=== PATIENT | female | born 1945 | race Caucasian/White ===

== ENCOUNTER 2018-05-01 09:04 | Day surgery (SDC) | payer MEDICARE, BC, SELFPAY ==
--- NOTE | 2018-05-01 | PATH_ITS ---
[facility] Accession Number: [id number] . 01 Material submitted: . COLON POLYP AT 70CM . 02 Diagnosis: Biopsy, Colon Polyp At 70 CM: Tubular adenoma. [facility]/05/03/2018 . 02 Electronically signed: . Benjamin Garcia MD, Pathologist NPI- [id number] . 01 Gross description: . COLON POLYP AT 70CM: Received in formalin is 1 fragment(s) of [place]udd[place], soft tissue measuring 0.4 x 0.3 x 0.3 cm submitted entirely in 1 cassette(s) /TRC /TRC . 02 Pathologist provided ICD-10: D12.3 . 02 CPT . 880712 Performed at: 01 [facility] [address] [id number] MD Arjun Hoff MD Phone: [phone] Performed at: 02 [facility] [address] [place], [place] [id number] MD Js Davenport MD Phone: [phone]
[2018-05-01 09:44] VITALS: BP 154/82; PULSE 88; RESP 16; TEMP 36; O2SAT 98; BMI 34.7
[2018-05-01] MEDS: SODIUM CHLORIDE 0.9% 1,000 ML 42 ML IV (10:12)
--- NOTE | 2018-05-01 10:50 | PM.HP.1 ---
History of Present Illness Date Patient Seen: 05/01/18 Time Patient Seen: 10:51 Chief complaint: [id number] COLONOSCOPY W/BX Narrative: Need for screening colonoscopy Patient History Medical History Diabetes type 2, controlled (Acute) Hypercholesterolemia (Acute) Hypertension (Acute) Family & Social History Social History: household members spouse Tobacco & Substance use: Smoking Status Never smoker Meds Home Medications Medication Instructions Recorded Confirmed Type medroxyprogesterone 2.5 mg PO QDAY #30 05/13/12 05/01/18 Rx aspirin 81 mg tablet,delayed 81 mg PO DAILY 04/08/18 05/01/18 History release ipratropium bromide 0.03 % nasal 2 spray NASAL DAILY ml 04/08/18 05/01/18 History spray lisinopril 10 mg tablet 10 mg PO DAILY 04/08/18 05/01/18 History metformin ER 500 mg 500 mg PO DAILY 04/08/18 05/01/18 History tablet,extended release 24 hr pravastatin 10 mg tablet 10 mg PO BEDTIME 04/08/18 05/01/18 History Allergies Allergy/AdvReac Type Severity Reaction Status Date / Time codeine AdvReac Mild VOMITING Verified 05/01/18 09:40 Exam Vital Signs (past 8 hours): - Oropharynx free of lesion Chest clear to auscultation percussion Cardiac exam reveals no S3 or murmur 05/01/18 09:44 Temperature 96.8 F L Pulse Rate 88 Respiratory Rate 16 Blood Pressure 154/82 H Pulse Oximetry 98 Oxygen Delivery Method Room Air Assessment & Plan Plan: Assessment/Plan Narrative: Personal history of colon polyps need for follow-up colonoscopy.
--- NOTE | 2018-05-01 10:55 | SUR.OPER ---
to endo from opd via cart respirtions unlabored iv patent positioned per self for procedure
--- NOTE | 2018-05-01 11:17 | SUR.OPER ---
tolerated procedure well
--- NOTE | 2018-05-01 11:17 | PM.OP.ENDO ---
Operative Date/Time/Diagnoses Date of procedure: 05/01/18 Time of procedure: 11:17 Pre-op diagnosis: Personal history of colon polyps Post-op diagnosis: same Procedure & Clinicians Study performed: Colonoscopy Same procedure as scheduled: Yes Indications: Personal history of colon polyps Surgeon: Johny Hill Procedure Notes Procedure in detail: After informed consent was obtained the patient was placed in left lateral decubitus position. The video colonoscope was introduced to the rectum slowly advanced to the cecum. On slow withdrawal mucosa was carefully examined. Preparation was excellent. The scope was removed patient tolerated procedure well Blood loss none Complications none Sedation: Fentanyl 100 mcg, Versed 7 mg IV titration. Total sedation time 21 min Findings 1. 6 mm polyp at 70 cm. General biopsied and removed completely 2. Extensive sigmoid diverticulosis 3. Otherwise negative colonoscopy to cecum Patient will be contacted regarding biopsies but will certainly need follow-up colonoscopy in 5 years. Complications: none Recommendations: Colonscopy in 5 years
[2018-05-01 11:19] VITALS: BP 140/72; PULSE 97; RESP 16; TEMP 36.2; O2SAT 96
[2018-05-01] MEDS: MIDAZOLAM 5 MG/5 ML VIAL 7 MG IV (11:20)
[2018-05-01] MEDS: fentaNYL 250 MCG/5 ML INJ 100 MCG IV (11:20)
[2018-05-01 11:25] VITALS: BP 108/72; PULSE 98; RESP 20; O2SAT 96
[2018-05-01 11:37] VITALS: BP 116/73; PULSE 90; RESP 15; TEMP 36.8; O2SAT 97
[2018-05-01 14:31] VITALS: BP 94/60; PULSE 77; RESP 16; TEMP 36.1; O2SAT 97
== END 2018-05-01 12:10 | disposition home or self-care (01) ==
PROVIDERS: PCP Internal Medicine; Visit Provider Internal Medicine Gastroenterology
PROC: 0DJD8ZZ Inspection of Lower Intestinal Tract, Via Natural or Artificial Opening Endoscopic (ICD-10-PCS; CPT 45378; principal; 2018-05-01 10:30)
DX: Z86.010 Personal history of colon polyps (principal); K57.30 Diverticulosis of large intestine without perforation or abscess without bleeding; D12.3 Benign neoplasm of transverse colon
CPT/HCPCS: 45380; J2250; J3010

== ENCOUNTER → 2018-09-02 11:47 | Outpatient (CLI) | payer MEDICARE, BC, SELFPAY ==
[2018-09-02 13:47] LABS: Blood Urea Nitrogen 12 mg/dL (7-17); Calcium 9.7 mg/dL (8.4-10.2); Carbon Dioxide 32 mmol/L (22-32); Chloride 98 mmol/L (98-107); Estimated Glomerular Filt Rate > 60.0 mL/min (>60); Glucose 211 mg/dL (80-110); HEMOLYSIS < 15 (0-50); Potassium 4.5 mmol/L (3.4-5.1); Sodium 139 mmol/L (137-145)
[2018-09-02 14:16] LABS: Creatinine Urine Random 63.7 mg/dL
[2018-09-02 15:00] LABS: Microalbumi Creatinin Ratio Ur 9.4 ug/mg CR (<30); Microalbumin Urine Random < 0.6 mg/dL (0-1.6)
== END ==
PROVIDERS: PCP Internal Medicine; Visit Provider Internal Medicine
DX: E11.9 Type 2 diabetes mellitus without complications (principal); I10 Essential (primary) hypertension
CPT/HCPCS: 36415; 80048; 82043; 82570; 83036

== ENCOUNTER → 2018-09-17 11:29 | Outpatient (CLI) | payer MEDICARE, BC, SELFPAY ==
--- NOTE | 2018-09-17 | DI.MRI.S_ITS ---
PROCEDURE: MR LUMBAR SPINE WO CON INDICATIONS: SPINAL STENOSIS LUMBAR REGION TECHNIQUE: Noncontrast sagittal T1 spin echo and T2 fast echo, sagittal STIR, axial T1 and T2 fast spin echo through the lumbar spine. In cases with scoliosis, additional coronal T2 fast spin echo may be performed. COMPARISON: None. FINDINGS: Image quality: Excellent. Alignment and Curvature: No plain films are available for comparison, for numbering purposes. Thus, for the purposes of this examination, 5 lumbar type vertebral bodies will be presumed, as denoted on the montage panel. This should be confirmed and correlated with plain films, prior to any lumbar spinal intervention. There is loss of normal lumbar lordosis. There is mild, grade 1 anterolisthesis of L4 on L5. Bone Marrow: Marrow is of normal overall signal. No acute vertebral body compression fractures. There is mild reactive signal within the implant adjacent to the L3-4 and L4-L5 intervertebral discs. T12 hemangioma is present. L4 hemangioma is present. Spinal Cord: Conus medullaris terminates at the lower L1 level. Visualized cord demonstrates normal signal and size. Paraspinous Soft Tissues: No paravertebral masses. L1-L2: Normal appearance. L2-L3: Mild disc height loss and desiccation. Mild diffuse disc bulge. Mild bilateral facet and ligamentum flavum hypertrophy. Mild epidural lipomatosis. Moderate canal stenosis. No foraminal stenosis. L3-L4: Mild disc desiccation. Moderate bilateral facet and ligamentum flavum hypertrophy. Mild epidural lipomatosis. Moderate canal stenosis. Mild foraminal stenosis bilaterally. L4-L5: Moderate disc height loss and desiccation. Mild diffuse disc bulge with superimposed left posterolateral protrusion. Mild bilateral facet and ligamentum flavum hypertrophy. Moderate canal stenosis. Mild left greater than right foraminal stenosis. The left for lateral disc protrusion abuts the left L4 nerve root within the neural foramen, but does not appear to compress it. L5-S1: Mild bilateral facet hypertrophy. No significant canal stenosis. Mild bilateral foraminal stenosis. IMPRESSION: 1.5 lumbar type vertebral bodies were presumed for the current report. Plain films of the lumbar spine are recommended for confirmation, prior to any lumbar spinal intervention. 2. Multilevel degenerative disc and facet disease, as well as ligamentum flavum hypertrophy and epidural lipomatosis. 3. Multilevel canal stenoses, worst at L3-L4 and L4-L5, where there are moderate canal stenoses present. 4. Multilevel foraminal stenoses, worst on the left at L4-L5. Left far lateral disc protrusion abuts the left L4 nerve root within the neural foramen, but does not appear to compress it. Recommend correlation with clinical symptoms to ascertain relevance of this finding. Dictated by: Galo Stout M.D. on 09/17/2018 at 13:40 Approved by: Galo Stout M.D. on 09/17/2018 at 13:44
== END ==
PROVIDERS: PCP Internal Medicine; Visit Provider Internal Medicine
DX: M48.062 Spinal stenosis, lumbar region with neurogenic claudication (principal); M48.07 Spinal stenosis, lumbosacral region; M51.36 Other intervertebral disc degeneration, lumbar region; E88.2 Lipomatosis, not elsewhere classified
CPT/HCPCS: 72148

== ENCOUNTER → 2018-10-17 12:30 | Outpatient (CLI) | payer MEDICARE, BC, SELFPAY ==
--- NOTE | 2018-10-17 | DI.MG.S_ITS ---
BILATERAL DIGITAL SCREENING MAMMOGRAM 3D/2D WITH CAD: 10/17/2018 CLINICAL: Routine screening. Family history of breast cancer. Comparison is made to exams dated: 08/23/2017 mammogram, 08/21/2016 mammogram, and 08/20/2015 mammogram - [facility]. There are scattered fibroglandular elements in both breasts. Current study was also evaluated with a Computer Aided Detection (CAD) system. There are benign vascular calcifications in the left breast. There is a mole marker on the right breast. There are mole markers on the left breast. No significant masses, calcifications, or other findings are seen in either breast. There has been no significant interval change. IMPRESSION: There is no mammographic evidence of malignancy. A 1 year screening mammogram is recommended. This exam was interpreted at Station ID: [id number]. NOTE: For mammograms, a report in lay terms will be sent to the patient. Approximately 15% of breast malignancies will not be visualized mammographically. In the management of a palpable breast mass, a negative mammogram must not discourage biopsy of a clinically suspicious lesion. Electronically Signed By: Everett harrington/shefali:10/17/2018 21:34:56 letter sent: Normal Exam ACR BI-RADS Category 2: Benign Finding(s) 3342F
== END ==
PROVIDERS: PCP Internal Medicine; Visit Provider Internal Medicine
DX: Z12.31 Encounter for screening mammogram for malignant neoplasm of breast (principal); Z80.3 Family history of malignant neoplasm of breast
CPT/HCPCS: 77063; 77067

== ENCOUNTER 2019-03-15 06:10 | Emergency (ER) | payer MEDICARE, BC, SELFPAY ==
[2019-03-15] VITALS (7 sets, daily range): BP systolic 139–177; BP diastolic 58–72; PULSE 74–89; RESP 17–23; TEMP 36.6; O2SAT 95–100; BMI 34.7
--- NOTE | 2019-03-15 06:16 | DI.RAD.S_ITS ---
PROCEDURE: XR CHEST 1V INDICATIONS: Chest tightness TECHNIQUE: One view of the chest was acquired. COMPARISON: None. FINDINGS: Surgical changes and devices: None. Lungs and pleura: Lungs are clear. No pleural effusions or pneumothorax. Mediastinum: Mediastinal contours appear normal. Heart size is normal. Bones and chest wall: No suspicious bony lesions. Overlying soft tissues appear unremarkable. IMPRESSION: Negative chest. No acute cardiopulmonary process is suspected. Note: The preliminary ED findings and the final radiology report are concordant. Dictated by: Quinton Pearce M.D. on 03/15/2019 at 7:09 Approved by: Quinton Pearce M.D. on 03/15/2019 at 7:09
[2019-03-15] MEDS: MAG HYDROX/ALUMINUM/SIMETH SUS 20 ML, LIDOCAINE VISCOUS 2% 15 ML PO (06:31)
--- NOTE | 2019-03-15 06:37 | ED_ITS ---
HPI - Chest Pain General Chief Complaint: Chest Pain Stated Complaint: CHEST TIGHTNESS SINCE 4AM Time Seen by Provider: 03/15/19 06:16 Source: patient Mode of arrival: ambulatory Limitations: no limitations History of Present Illness HPI narrative: Patient is a 73-year-old female. She is a [id number] diabetic. She states that last evening she when out to eat and ate something he does at a facility where she has never had this food in the past. She states that afterwards she did not feel very well but there were no specific symptoms. She states that at 0300 hours this morning she woke up to go to the bathroom and noticed that she was having left-sided/retrosternal chest discomfort. She describes it as a pressure. She states that it worsened at approximately 0400 hours in the morning when she took some Tums. She states that since then things seemed to be improving somewhat however she has not symptom-free. No change in the symptoms with breathing. Potentially a little bit worse with palpation. Not worse with moving of extremities. No prior heart issues. No lung issues. Related Data Home Medications Medication Instructions Recorded Confirmed aspirin 81 mg tablet,delayed 81 mg PO DAILY 04/08/18 05/01/18 release ipratropium bromide 0.03 % nasal 2 spray NASAL DAILY ml 04/08/18 05/01/18 spray lisinopril 10 mg tablet 10 mg PO DAILY 04/08/18 05/01/18 metformin ER 500 mg 500 mg PO DAILY 04/08/18 05/01/18 tablet,extended release 24 hr pravastatin 10 mg tablet 10 mg PO BEDTIME 04/08/18 05/01/18 Previous Rx's Medication Instructions Recorded medroxyprogesterone 2.5 mg PO QDAY #30 05/13/12 Allergies Allergy/AdvReac Type Severity Reaction Status Date / Time codeine AdvReac Mild VOMITING Verified 05/01/18 09:40 Review of Systems Constitutional Denies fever(s) and Denies headache(s) ENT Ears, Nose, Mouth, and Throat: Denies vertigo and Denies headache(s) Cardiovascular Reports chest pain and Denies dyspnea Respiratory Denies dyspnea Gastrointestinal Gastrointestinal: Denies abdominal pain, Denies change in stool character and Denies vomiting Musculoskeletal Denies myalgias and Denies arthralgias Integumentary/Breasts Denies rash Neurologic Denies vertigo and Denies headache(s) Hematologic/Lymphatic Denies easy bleeding and Denies easy bruising [facility] Medical History Diabetes type 2, controlled (Acute) Hypercholesterolemia (Acute) Hypertension (Acute) Social History household members: spouse Smoking Status: Never smoker Social History household members: spouse Smoking Status: Never smoker Exam Initial Vital Signs Initial Vital Signs: Vital Signs Temperature 97.8 F 03/15/19 06:19 Pulse Rate 89 03/15/19 06:19 Respiratory Rate 23 03/15/19 06:19 Blood Pressure 177/71 H 03/15/19 06:19 Pulse Oximetry 96 03/15/19 06:19 Const General: cooperative, comfortable, well developed, well groomed and No acute distress Orientation: alert, awake and oriented x3 HENMT Head: normal to inspection and normocephalic Resp Effort & Inspection: normal respiratory effort Auscultation: clear to auscultation bilaterally Cardio Rate: regular rate Rhythm: regular rhythm Heart Sounds: murmur systolic III/ Pulses: radial pulses present GI Inspection: non-distended Palpation: soft and No firm Skin Lesions: no lesions Rashes: no rashes Neuro General: alert and awake Cognition: normal cognition Speech: speech normal Gait: normal gait Motor: muscle tone normal throughout Extrem General: normal to inspection and capillary refill normal Course Orders Ordered: ED Orders 03/15/19 06:16 XR chest 1V Stat EKG-12 Lead Stat 03/15/19 06:45 Complete Blood Count AUTO DIFF Stat Comprehensive Metabolic Panel Stat Lipase Stat Troponin I Stat 03/15/19 09:00 Troponin I Stat Discontinued Medications Al Hydrox/Mg Hydrox/Simethicone 20 ml/ Lidocaine HCl 15 ml 0 ml PO NOW ONE Stop: 03/15/19 06:19 Last Admin: 03/15/19 06:31 Dose: 35 ml Vital Signs - 8 hr 03/15/19 06:19 Temperature 97.8 F Pulse Rate 89 Respiratory Rate 23 Blood Pressure 177/71 H Pulse Oximetry 96 MDM - Chest Pain Lab Data Attestation: I reviewed the patient's lab results. Result diagrams: 03/15/19 06:45 03/15/19 06:45 Lab Results 03/15/19 03/15/19 03/15/19 Range/Units 06:45 06:45 06:45 WBC 9.7 (4.5-11.0) X10^3/uL RBC 4.72 (4.0-5.2) X10^6/uL Hgb 13.8 (12.0-16.0) g/dL Hct 40.6 (36-46) % MCV 86.0 (80-100) fL MCH 29.2 (26-34) PG MCHC 34.0 (30-36) % RDW 14.0 (11.6-14.8) % Plt Count 219 (150-400) X10^3/uL Neut % (Auto) 69.2 (50-75) % Lymph % (Auto) 22.5 L (25-40) % [place] % (Auto) 5.9 (3-14) % Eos % (Auto) 1.6 L (2-4) % Baso % (Auto) 0.8 (0-2) % Neut # (Auto) 6700 (5137-1492) /uL Lymph # (Auto) 2200 (3253-8252) /uL [place] # (Auto) 600 (0-900) /uL Eos # (Auto) 200 (0-450) /uL Baso # (Auto) 100 (0-100) /uL Sodium 142 (137-145) mmol/L Potassium 3.9 (3.4-5.1) mmol/L Chloride 102 (98-107) mmol/L Carbon Dioxide 32 (22-32) mmol/L BUN 13 (7-17) mg/dL Creatinine 0.60 (0.52-1.04) mg/dL Estimated GFR > 60.0 (>60) mL/min BUN/Creatinine Ratio 21.7 (6-22) Glucose 161 H (80-110) mg/dL Calcium 10.1 (8.4-10.2) mg/dL Total Bilirubin 0.4 (0.2-1.3) mg/dL AST 17 (14-36) IU/L ALT 15 (9-52) IU/L Alkaline Phosphatase 84 (38-126) U/L Troponin I < 0.012 (0.01-0.034) ng/mL Total Protein 7.4 (6.3-8.2) g/dL Albumin 4.1 (3.5-5.0) g/dL Globulin 3.3 (1.7-4.1) g/dL Albumin/Globulin Ratio 1.2 (1.0-2.8) Lipase 217 (23-300) U/L Imaging Data Chest x-ray: Attestation: I personally reviewed and interpreted this imaging study as follows: My impression: Normal size heart No focal consolidations No pneumothorax ECG Data Attestation: I personally reviewed and interpreted this ECG as follows: Prior ECG tracings: not available for review Interpretation: Sinus rhythm Ventricular rate is 67 Normal QRS Normal axis [address] depression V4 otherwise nonspecific ST T wave changes MDM Narrative Medical decision making narrative: Patient with consistent symptoms since 0300 hours this morning. She states that they have been improving somewhat after taking Tums but not completely gone. Patient has nonspecific ST changes in the EKG. Chest x-ray is unremarkable. Care was turned over to day provider at change of shift to follow up on labs and ultimate disposition. Discharge Plan Departure Prescriptions: No Action medroxyprogesterone 2.5 MG tablet 2.5 mg PO QDAY Qty: 30 RF: 11 ipratropium bromide 0.03 % spray,non-aerosol 2 spray NASAL DAILY RF: 0 lisinopril 10 mg tablet 10 mg PO DAILY RF: 0 pravastatin 10 mg tablet 10 mg PO BEDTIME RF: 0 aspirin 81 mg tablet,delayed release (DR/EC) 81 mg PO DAILY RF: 0 metformin 500 mg tablet extended release 24 hr 500 mg PO DAILY RF: 0
--- NOTE | 2019-03-15 06:50 | PC.NURSE ---
pt reports maybe a zero out of 10 for chest pain/pressure after GI cocktail
[2019-03-15 06:51] LABS: Add Manual Diff / Slide Review NO; Basophils Absolute Auto 100 /uL (0-100); Basophils Percent Auto 0.8 % (0-2); Eosinophils Absolute Auto 200 /uL (0-450); Eosinophils Percent Auto 1.6 % (2-4); Hematocrit 40.6 % (36-46); Hemoglobin 13.8 g/dL (12.0-16.0); Lymphocytes Absolute Auto 2200 /uL (1100-4500); Lymphocytes Percent Auto 22.5 % (25-40); Mean Corpuscular Hemoglobin 29.2 PG (26-34); Monocytes Absolute Auto 600 /uL (0-900); Monocytes Percent Auto 5.9 % (3-14); Neutrophils Absolute Auto 6700 /uL (1500-7000); Neutrophils Percent Auto 69.2 % (50-75); Platelet Count 219 X10^3/uL (150-400); Red Blood Cell Count 4.72 X10^6/uL (4.0-5.2); White Blood Cell Count 9.7 X10^3/uL (4.5-11.0)
[2019-03-15 07:02] LABS: Alanine Aminotransferase 15 IU/L (9-52); Albumin 4.1 g/dL (3.5-5.0); Albumin Globulin Ratio 1.2 (1.0-2.8); Alkaline Phosphatase 84 U/L (38-126); Aspartate Aminotransferase 17 IU/L (14-36); BUN Creatinine Ratio 21.7 (6-22); Bilirubin Total 0.4 mg/dL (0.2-1.3); Blood Urea Nitrogen 13 mg/dL (7-17); Calcium 10.1 mg/dL (8.4-10.2); Carbon Dioxide 32 mmol/L (22-32); Chloride 102 mmol/L (98-107); Estimated Glomerular Filt Rate > 60.0 mL/min (>60); Globulin 3.3 g/dL (1.7-4.1); Glucose 161 mg/dL (80-110); HEMOLYSIS < 15 (0-50); Lipase 217 U/L (23-300); Potassium 3.9 mmol/L (3.4-5.1); Sodium 142 mmol/L (137-145); Total Protein 7.4 g/dL (6.3-8.2)
[2019-03-15 07:13] LABS: Troponin I < 0.012 ng/mL (0.01-0.034)
[2019-03-15 09:45] LABS: Troponin I < 0.012 ng/mL (0.01-0.034)
== END 2019-03-15 10:12 | disposition home or self-care (01) ==
PROVIDERS: Emergency Medicine; Emergency Provider Emergency Medicine; PCP Internal Medicine
DX: R07.89 Other chest pain (principal)
CPT/HCPCS: 36415; 36591; 71045; 80053; 83690; 84484; 85025; 93005; 99283; 99285

== ENCOUNTER → 2019-10-30 14:44 | Outpatient (CLI) | payer MEDICARE, BC, SELFPAY ==
--- NOTE | 2019-10-30 | DI.MG.S_ITS ---
BILATERAL DIGITAL SCREENING MAMMOGRAM 3D/2D WITH CAD: 10/30/2019 CLINICAL: Routine screening. Family history of breast cancer. Comparison is made to exams dated: 10/17/2018 mammogram, 08/23/2017 mammogram, 08/21/2016 mammogram, 08/20/2015 mammogram, and 08/12/2014 mammogram - [facility]. There are scattered fibroglandular elements in both breasts. Current study was also evaluated with a Computer Aided Detection (CAD) system. There are benign vascular calcifications in the left breast. There is a mole marker on the left breast. No significant masses, calcifications, or other findings are seen in either breast. There has been no significant interval change. IMPRESSION: There is no mammographic evidence of malignancy. A 1 year screening mammogram is recommended. This exam was interpreted at Station ID: [id number]. NOTE: For mammograms, a report in lay terms will be sent to the patient. Approximately 15% of breast malignancies will not be visualized mammographically. In the management of a palpable breast mass, a negative mammogram must not discourage biopsy of a clinically suspicious lesion. Electronically Signed By: Everett harrington/shefali:10/30/2019 17:23:22 letter sent: Normal Exam ACR BI-RADS Category 2: Benign Finding(s) 3342F
== END ==
PROVIDERS: PCP Internal Medicine; Visit Provider Internal Medicine
DX: Z12.31 Encounter for screening mammogram for malignant neoplasm of breast (principal); Z80.3 Family history of malignant neoplasm of breast
CPT/HCPCS: 77063; 77067

== ENCOUNTER 2019-11-25 20:44 | Emergency (ER) | payer MEDICARE, BC, SELFPAY ==
[2019-11-25 20:48] VITALS: BP 171/78; PULSE 89; RESP 18; TEMP 36.4; O2SAT 99
--- NOTE | 2019-11-26 02:35 | ED_ITS ---
HPI - Skin/Abscess/Foreign Bdy General Chief complaint: Skin/Abscess/Foreign Body Stated complaint: Cut Fingers on Right Hand Time Seen by Provider: 11/25/19 20:57 Source: patient Mode of arrival: Ambulatory Limitations: no limitations History of Present Illness HPI narrative: 74F nonsmoker with history of HTN and DM persents with the chief complaint of an accidental laceration to the tip of her Right middle finger. She's had some trouble getting the bleeding to stop over the past few hours hence her decision to come CS. She does not take any blood thinners and states her tetanus was updated 1 month ago. She has full range of motion and minimal pain. She lacerated it with a brand-new chaim CL[place] complaint: laceration Onset (ago): hour(s) Tetanus up to date: yes Location: R hand Severity: mild Quality: burning Pain Consistency: constant Context: other Treatments prior to arrival: bandages Related Data Home Medications Medication Instructions Recorded Confirmed aspirin 81 mg tablet,delayed 81 mg PO DAILY 04/08/18 05/01/18 release ipratropium bromide 0.03 % nasal 2 spray NASAL DAILY ml 04/08/18 05/01/18 spray lisinopril 10 mg tablet 10 mg PO DAILY 04/08/18 05/01/18 metformin 500 mg tablet,extended 500 mg PO DAILY 04/08/18 05/01/18 release 24 hr pravastatin 10 mg tablet 10 mg PO BEDTIME 04/08/18 05/01/18 Previous Rx's Medication Instructions Recorded medroxyprogesterone 2.5 mg PO QDAY #30 05/13/12 Allergies Allergy/AdvReac Type Severity Reaction Status Date / Time codeine AdvReac Mild VOMITING Verified 05/01/18 09:40 Review of Systems Constitutional Constitutional: Denies chills, Denies fatigue, Denies fever(s), Denies frequent falls, Denies lethargy and Denies weakness Eyes Eyes: Denies change in vision, Denies eye discharge, Denies irritation and Denies loss of vision ENT Ears, Nose, Mouth, and Throat: Denies change in voice, Denies dizziness, Denies neck pain, Denies sore throat and Denies throat swelling Cardiovascular Cardiovascular: Denies chest pain, Denies irregular heart rhythm, Denies lightheadedness, Denies palpitations, Denies dyspnea, Denies dyspnea on exertion and Denies orthopnea Respiratory Respiratory: Denies cough, Denies dyspnea, Denies dyspnea on exertion and Denies wheezing Gastrointestinal Gastrointestinal: Denies abdominal pain, Denies change in bowel habits, Denies diarrhea, Denies nausea and Denies vomiting Genitourinary Genitourinary: Denies hematuria, Denies flank pain, Denies urinary incontinence and Denies urinary urgency Musculoskeletal Musculoskeletal: Denies back pain, Denies muscle weakness, Denies neck pain, Denies numbness and Denies tingling Integumentary/Breasts Skin/Breast: Denies pruritus, Denies erythema, Denies rash and Reports wounds Neurologic Neurologic: Denies behavioral changes, Denies confusion, Denies dizziness, Denies frequent falls, Denies loss of vision, Denies numbness, Denies tingling and Denies weakness Psychiatric Psychiatric: Denies anxiety, Denies behavioral changes, Denies confusion, Denies depression, Denies homicidal ideation and Denies suicidal ideation Endocrine Endocrine: Denies fatigue, Denies flushing and Denies palpitations Hematologic/Lymphatic Hematologic/Lymphatic: Denies easy bruising Allergic/Immunologic Allergic/Immunologic: Denies urticaria, Denies throat swelling and Denies wheezing Patient History Medical History Diabetes type 2, controlled (Acute) Hypercholesterolemia (Acute) Hypertension (Acute) Social History household members: spouse Smoking Status: Never smoker Smoking Status: Never smoker alcohol intake frequency: 0-2 drinks per day Substance Use Type: does not use Exam Narrative Exam Narrative: GEN: AOx3 and in mild distress EYES: Pupils are equal, round, and reactive to light and accommodation. Extraoccular muscles are intact bilaterally. There is no subconjunctival hemorrhage or exudate. CHEST: Lungs are clear to auscultation bilaterally and free of wheezes, rales, or rhonchi. Heart rate is regular rhythm, there are no murmurs, clicks, rubs, or gallops. There is no chest wall tenderness. ABD: Abdomen is soft and nontender. There is no guarding or rebound. Bowel soun ds are normal in all 4 quadrants. There is no mass or organomegaly. EXT: Full painless ROM of all extremities with no loss of sensation or strength. SKIN: 0.5cm x 0.25cm avulsion laceration to pad of R index finger, no active bleeding. No ability to suture. Warm, pink, and dry. No erythema or rash Initial Vital Signs Initial Vital Signs: Vital Signs Temperature 97.6 F 11/25/19 20:48 Pulse Rate 89 11/25/19 20:48 Respiratory Rate 18 11/25/19 20:48 Blood Pressure 171/78 H 11/25/19 20:48 Pulse Oximetry 99 11/25/19 20:48 Course Vital Signs Vital signs: Vital Signs - 8 hr 11/25/19 20:48 Temperature 97.6 F Pulse Rate 89 Respiratory Rate 18 Blood Pressure 171/78 H Pulse Oximetry 99 MDM - Skin/Abscess/Foreign Bdy MDM Narrative Medical decision making narrative: laceration dressed by nursing with hemostatic gauze. Patient encouraged to follow up for wound care. No need for sutures, or antibiotics at this point in time. Patient given return precautions and is aware of and in agreement with discharge plan Discharge Plan Departure Patient Disposition: Home Clinical Impression: Laceration of finger of right hand Qualifiers: Encounter type: initial encounter Finger: middle finger Damage to nail status: without damage Foreign body presence: without foreign body Qualified Code(s): S61.212A - Laceration without foreign body of right middle finger without damage to nail, initial encounter Discharge Date/Time: 11/25/19 21:23 Instructions: DI for Minor Laceration Activity Restrictions/Additional Instructions: *You have been diagnosed with [avulsion laceration] *What to do: *Follow up with your primary care provider in 2-3 days, call for an appointment. Let them know you were seen in the Emergency Department and that we ask that you be seen in follow up *Return to ER if you should have any new, worsening or concerning symptoms, such as [increased bleeding, signs of infection such as redness, swelling or drainage] Prescriptions: No Action medroxyprogesterone 2.5 MG tablet 2.5 mg PO QDAY Qty: 30 RF: 11 ipratropium bromide 0.03 % spray,non-aerosol 2 spray NASAL DAILY RF: 0 lisinopril 10 mg tablet 10 mg PO DAILY RF: 0 pravastatin 10 mg tablet 10 mg PO BEDTIME RF: 0 aspirin 81 mg tablet,delayed release (DR/EC) 81 mg PO DAILY RF: 0 metformin 500 mg tablet extended release 24 hr 500 mg PO DAILY RF: 0 Referrals: Roni Patterson MD [Primary Care Provider] -
== END 2019-11-25 21:23 | disposition home or self-care (01) ==
PROVIDERS: Emergency Provider Emergency Medicine; PCP Internal Medicine
DX: S61.212A Laceration without foreign body of right middle finger without damage to nail, initial encounter (principal); W26.9XXA Contact with unspecified sharp object(s), initial encounter
CPT/HCPCS: 99281

== ENCOUNTER → 2020-05-20 15:29 | Outpatient (ROUT) | payer MEDICARE, BC, SELFPAY ==
[2020-05-20 16:17] LABS: Aspartate Aminotransferase 22 IU/L (14-36); BUN Creatinine Ratio 21.3 (6-22); Blood Urea Nitrogen 13 mg/dL (7-17); Carbon Dioxide 29 mmol/L (22-32); Chloride 99 mmol/L (98-107); Cholesterol 161 mg/dL (140-199); Estimated Glomerular Filt Rate > 60.0 mL/min (>60); Glucose 169 mg/dL (80-110); HDL Cholesterol 50 mg/dL (40-60); HEMOLYSIS < 15 (0-50); LDL Cholesterol Calculated 87 mg/dL (<100); Sodium 137 mmol/L (137-145); Triglycerides 122 mg/dL (35-150)
[2020-05-20 16:21] LABS: Hemoglobin A1C% w Est Avg Glu 7.5 % (4.0-6.0)
[2020-05-20 16:47] LABS: TSH w/ Reflex to FT4 1.26 uIU/mL (0.47-4.68)
== END ==
PROVIDERS: PCP Internal Medicine; Visit Provider Internal Medicine
DX: E78.2 Mixed hyperlipidemia (principal)
CPT/HCPCS: 80048; 80061; 83036; 84443; 84450

== ENCOUNTER → 2021-10-21 11:43 | Outpatient (CLI) | payer MEDICARE, BC, SELFPAY ==
--- NOTE | 2021-10-21 11:46 | DI.MG.S_ITS ---
BILATERAL DIGITAL SCREENING MAMMOGRAM 3D/2D WITH CAD: 10/21/2021 CLINICAL: Routine screening. Family history of breast cancer. Comparison is made to exams dated: 10/30/2019 mammogram, 10/17/2018 mammogram, 08/21/2016 mammogram, and 08/23/2017 mammogram - [facility]. There are scattered fibroglandular elements in both breasts. Current study was also evaluated with a Computer Aided Detection (CAD) system. There are benign vascular calcifications in both breasts. There is a mole marker on the left breast. No significant masses, calcifications, or other findings are seen in either breast. There has been no significant interval change. IMPRESSION: BENIGN There is no mammographic evidence of malignancy. A 1 year screening mammogram is recommended. This exam was interpreted at Station ID: [id number]. NOTE: For mammograms, a report in lay terms will be sent to the patient. Approximately 15% of breast malignancies will not be visualized mammographically. In the management of a palpable breast mass, a negative mammogram must not discourage biopsy of a clinically suspicious lesion. Electronically Signed By: Young Poe acr/penrad:10/21/2021 13:52:52 letter sent: Normal Exam ACR BI-RADS Category 2: Benign Finding(s) 3342F
== END ==
PROVIDERS: PCP Internal Medicine; Referring Provider Internal Medicine; Visit Provider Internal Medicine
DX: Z12.31 Encounter for screening mammogram for malignant neoplasm of breast (principal); Z80.3 Family history of malignant neoplasm of breast
CPT/HCPCS: 77063; 77067

== ENCOUNTER → 2021-12-01 17:25 | Outpatient (CLI) | payer MEDICARE, BC, SELFPAY ==
--- NOTE | 2021-12-01 | DI.MRI.S_ITS ---
PROCEDURE: MR LUMBAR SPINE WO CON INDICATIONS: Radiculopathy, lumbar region TECHNIQUE: Noncontrast sagittal T1 spin echo and T2 fast echo, sagittal STIR, axial T1 and T2 fast spin echo through the lumbar spine. In cases with scoliosis, additional coronal T2 fast spin echo may be performed. COMPARISON: [facility], CR, XR LUMBAR SPINE WITH OLBIQUES PLUS FLEXION EXTENSION, 09/27/2018, 12:56. [facility], , MR LUMBAR SPINE WO CON, 09/17/2018, 12:05. FINDINGS: Image quality: Excellent. Alignment and Curvature: 5 lumbar type vertebral bodies are present by plain film. There is loss of normal lumbar lordosis. Mild grade 1 anterolisthesis of L3 on L4 and L4 on L5 Bone Marrow: Marrow is of normal overall signal. No acute vertebral body compression fractures. Mild reactive signal throughout the endplates of the lumbar spine. Right T12 hemangioma. Left L4 hemangioma. Spinal Cord: Conus medullaris terminates at the lower L1 level. Visualized cord demonstrates normal signal and size. Paraspinous Soft Tissues: No paravertebral masses. T12-L1: Normal appearance. L1-L2: Normal appearance. L2-L3: Mild disc height loss and desiccation. Mild diffuse disc bulge. Mild facet and ligamentum flavum hypertrophy. Mild epidural lipomatosis. Moderate canal stenosis. No foraminal stenosis. No significant change. L3-L4: Mild disc desiccation and diffuse disc bulge. Moderate facet and ligamentum flavum hypertrophy. Mild epidural lipomatosis. Increased, severe canal stenosis. Increased, moderate bilateral foraminal stenosis. L4-L5: Moderate disc height loss and desiccation. Mild diffuse disc bulge with superimposed broad-based left posterolateral protrusion. Mild facet and ligamentum flavum hypertrophy. Mild epidural lipomatosis. Moderate canal stenosis. Moderate left and mild right foraminal stenosis. No significant change. L5-S1: Mild facet and ligamentum flavum hypertrophy. Mild epidural lipomatosis. Mild canal stenosis. Mild bilateral foraminal stenosis. No significant change. IMPRESSION: 1. Multilevel degenerative disc and facet disease, as well as ligamentum flavum hypertrophy and epidural lipomatosis. 2. Multilevel canal stenoses, worst at L3-L4, where there is increased, severe canal stenosis. 3. Multilevel foraminal stenoses, worst at L3-L4 and L4-L5, where there are moderate foraminal stenoses. Dictated by: Galo Stout M.D. on 12/02/2021 at 8:25 Approved by: Galo Stout M.D. on 12/02/2021 at 8:30
== END ==
PROVIDERS: PCP Internal Medicine; Referring Provider Physical Medicine & Rehabilitation; Visit Provider Physical Medicine & Rehabilitation
DX: M51.16 Intervertebral disc disorders with radiculopathy, lumbar region (principal); M51.17 Intervertebral disc disorders with radiculopathy, lumbosacral region; M48.061 Spinal stenosis, lumbar region without neurogenic claudication; M48.07 Spinal stenosis, lumbosacral region
CPT/HCPCS: 72148

== ENCOUNTER → 2022-02-03 15:25 | Outpatient (CLI) | payer MEDICARE, BC, SELFPAY ==
--- NOTE | 2022-02-03 15:27 | DI.RAD.S_ITS ---
PROCEDURE: XR KNEE RT 3V INDICATIONS: right knee pain TECHNIQUE: 3 views of the knee were acquired. COMPARISON: None. FINDINGS: Bones: No fractures or dislocations. No suspicious bony lesions. Moderate lateral and patellofemoral compartment osteoarthritis. Mild medial compartment osteoarthritis. Soft tissues: No joint effusion. No suspicious soft tissue calcifications. IMPRESSION: Right knee tricompartmental osteoarthritis. Dictated by: Blanca Epps MD, PhD on 02/03/2022 at 17:02 Approved by: Blanca Epps MD, PhD on 02/03/2022 at 17:03
[2022-02-03 16:23] LABS: Hematocrit 41.2 % (36-46); Hemoglobin 13.9 g/dL (12.0-16.0); Mean Corpuscular HGB Conc 33.8 % (30-36); Mean Corpuscular Hemoglobin 29.5 PG (26-34); Mean Corpuscular Volume 87.4 fL (80-100); Platelet Count 302 X10^3/uL (150-400); Red Blood Cell Count 4.71 X10^6/uL (4.0-5.2); Red Cell Distribution Width 13.7 % (11.6-14.8); White Blood Cell Count 9.1 X10^3/uL (4.5-11.0)
[2022-02-03 16:30] LABS: Hemoglobin A1C% w Est Avg Glu 7.6 % (4.0-6.0)
[2022-02-03 16:52] LABS: Creatinine Urine Random 50.3 mg/dL
[2022-02-03 16:58] LABS: Microalbumin Urine Random < 0.6 mg/dL (0-1.6)
[2022-02-03 17:13] LABS: Alanine Aminotransferase 17 IU/L (<35); Albumin 4.6 g/dL (3.5-5.0); Albumin Globulin Ratio 1.2 (1.0-2.8); Alkaline Phosphatase 63 U/L (38-126); Aspartate Aminotransferase 24 IU/L (14-36); BUN Creatinine Ratio 23.8 (6-22); Bilirubin Total 0.5 mg/dL (0.2-1.3); Blood Urea Nitrogen 15 mg/dL (7-17); Calcium 10.3 mg/dL (8.4-10.2); Carbon Dioxide 33 mmol/L (22-32); Chloride 103 mmol/L (98-107); Estimated Glomerular Filt Rate > 60 mL/min (>60); Globulin 3.7 g/dL (1.7-4.1); Glucose 112 mg/dL (80-110); HEMOLYSIS < 15 (0-50); Potassium 3.3 mmol/L (3.4-5.1); Sodium 144 mmol/L (137-145); Total Protein 8.3 g/dL (6.3-8.2)
[2022-02-03 17:41] LABS: TSH w/ Reflex to FT4 0.79 uIU/mL (0.47-4.68)
== END ==
PROVIDERS: PCP Internal Medicine; Referring Provider Internal Medicine; Visit Provider Internal Medicine
DX: E11.40 Type 2 diabetes mellitus with diabetic neuropathy, unspecified (principal); M15.9 Polyosteoarthritis, unspecified; E78.2 Mixed hyperlipidemia; I10 Essential (primary) hypertension
CPT/HCPCS: 36415; 73562; 80053; 82043; 82570; 83036; 84443; 85027

== ENCOUNTER → 2022-02-06 10:17 | Outpatient (CLI) | payer MEDICARE, BC, SELFPAY ==
[2022-02-06 11:51] LABS: Cholesterol 170 mg/dL (140-199); HDL Cholesterol 51 mg/dL (40-60); LDL Cholesterol Calculated 94 mg/dL (<100); Triglycerides 125 mg/dL (35-150)
== END ==
PROVIDERS: PCP Internal Medicine; Referring Provider Internal Medicine; Visit Provider Internal Medicine
DX: E11.40 Type 2 diabetes mellitus with diabetic neuropathy, unspecified (principal); E78.2 Mixed hyperlipidemia; I10 Essential (primary) hypertension
CPT/HCPCS: 36415; 80061

== ENCOUNTER → 2022-05-10 14:41 | Outpatient (CLI) | payer MEDICARE, BC, SELFPAY ==
[2022-05-10 15:37] LABS: HEMOLYSIS < 15 (0-50)
[2022-05-10 18:09] LABS: Hemoglobin A1C% w Est Avg Glu 8.2 % (4.0-6.0)
== END ==
PROVIDERS: PCP Internal Medicine; Referring Provider Internal Medicine; Visit Provider Internal Medicine
DX: E11.40 Type 2 diabetes mellitus with diabetic neuropathy, unspecified (principal); E11.69 Type 2 diabetes mellitus with other specified complication; E87.6 Hypokalemia
CPT/HCPCS: 36415; 83036; 84132

== ENCOUNTER → 2022-05-15 08:07 | Outpatient (CLI) | payer MEDICARE, BC, SELFPAY ==
[2022-05-15 09:02] LABS: Add Manual Diff / Slide Review NO; Basophils Absolute Auto 100 /uL (0-100); Basophils Percent Auto 0.8 % (0-2); Eosinophils Absolute Auto 100 /uL (0-450); Hematocrit 40.3 % (36-46); Hemoglobin 13.8 g/dL (12.0-16.0); Lymphocytes Absolute Auto 3600 /uL (1100-4500); Lymphocytes Percent Auto 35.7 % (25-40); Mean Corpuscular HGB Conc 34.3 % (30-36); Mean Corpuscular Hemoglobin 29.8 PG (26-34); Monocytes Absolute Auto 700 /uL (0-900); Monocytes Percent Auto 7.4 % (3-14); Neutrophils Absolute Auto 5600 /uL (1500-7000); Neutrophils Percent Auto 55.1 % (50-75); Platelet Count 252 X10^3/uL (150-400); Red Blood Cell Count 4.64 X10^6/uL (4.0-5.2); Red Cell Distribution Width 13.7 % (11.6-14.8); White Blood Cell Count 10.1 X10^3/uL (4.5-11.0)
[2022-05-15 09:32] LABS: Hemoglobin A1C% w Est Avg Glu 8.3 % (4.0-6.0)
[2022-05-15 09:37] LABS: BUN Creatinine Ratio 27.7 (6-22); Blood Urea Nitrogen 18 mg/dL (7-17); Calcium 9.2 mg/dL (8.4-10.2); Carbon Dioxide 29 mmol/L (22-32); Chloride 96 mmol/L (98-107); Estimated Glomerular Filt Rate > 60 mL/min (>60); Glucose 177 mg/dL (80-110); HEMOLYSIS < 15 (0-50); Potassium 4.6 mmol/L (3.4-5.1); Sodium 131 mmol/L (137-145)
== END ==
PROVIDERS: PCP Internal Medicine; Referring Provider Orthopaedic Surgery; Visit Provider Orthopaedic Surgery
DX: Z01.812 Encounter for preprocedural laboratory examination (principal); Z01.818 Encounter for other preprocedural examination; R73.9 Hyperglycemia, unspecified
CPT/HCPCS: 36415; 80048; 83036; 85025; 93005

== ENCOUNTER → 2022-08-11 14:46 | Outpatient (CLI) | payer MEDICARE, BC, SELFPAY ==
[2022-08-11 17:00] LABS: Cholesterol 164 mg/dL (140-199); Glucose 135 mg/dL (80-110); HDL Cholesterol 46 mg/dL (40-60); LDL Cholesterol Calculated 94 mg/dL (<100); Triglycerides 118 mg/dL (35-150)
[2022-08-11 18:22] LABS: Creatinine Urine Random 98.3 mg/dL
[2022-08-11 18:27] LABS: Microalbumi Creatinin Ratio Ur 7.1 ug/mg CR (<30); Microalbumin Urine Random 0.7 mg/dL (0-1.6)
== END ==
PROVIDERS: PCP Internal Medicine; Referring Provider Internal Medicine; Visit Provider Internal Medicine
DX: E11.69 Type 2 diabetes mellitus with other specified complication (principal); E78.2 Mixed hyperlipidemia
CPT/HCPCS: 36415; 80061; 82043; 82570; 82947; 83036

== ENCOUNTER → 2022-10-25 15:24 | Outpatient (CLI) | payer MEDICARE, BC, SELFPAY ==
--- NOTE | 2022-10-25 15:26 | DI.MG.S_ITS ---
BILATERAL DIGITAL SCREENING MAMMOGRAM 3D/2D WITH CAD: 10/25/2022 CLINICAL: Routine screening. Family history of breast cancer. Comparison is made to exams dated: 10/21/2021 mammogram, 10/30/2019 mammogram, and 10/17/2018 mammogram - [facility]. There are scattered areas of fibroglandular density in both breasts (category b / 25%-50% glandular tissue). Current study was also evaluated with a Computer Aided Detection (CAD) system. There are benign vascular calcifications in both breasts. There is a mole marker on the left breast. No significant masses, calcifications, or other findings are seen in either breast. There has been no significant interval change. IMPRESSION: BENIGN There is no mammographic evidence of malignancy. A 1 year screening mammogram is recommended. Based on the Tyrer Cuzick model (a risk assessment model) the patient's lifetime risk is 2.8% and her 10 year risk is 0.0%. According to the ACR, ACS, and NCCN guidelines, an annual breast MRI exam along with mammogram is recommended if the patient's lifetime risk is 20% or greater. This exam was interpreted at Station ID: [id number]. NOTE: For mammograms, a report in lay terms will be sent to the patient. Approximately 15% of breast malignancies will not be visualized mammographically. In the management of a palpable breast mass, a negative mammogram must not discourage biopsy of a clinically suspicious lesion. Electronically Signed By: Adriano Cutler M.D., jr/shefali:10/26/2022 12:45:11 letter sent: Normal Exam ACR BI-RADS Category 2: Benign Finding(s) 3342F
== END ==
PROVIDERS: PCP Internal Medicine; Referring Provider Internal Medicine; Visit Provider Internal Medicine
DX: Z12.31 Encounter for screening mammogram for malignant neoplasm of breast (principal); Z80.3 Family history of malignant neoplasm of breast
CPT/HCPCS: 77063; 77067

== ENCOUNTER → 2023-02-12 08:40 | Outpatient (CLI) | payer MEDICARE, BC, SELFPAY ==
[2023-02-12 11:26] LABS: Blood Urea Nitrogen 13 mg/dL (7-17); Calcium 9.3 mg/dL (8.4-10.2); Carbon Dioxide 32 mmol/L (22-32); Chloride 100 mmol/L (98-107); Estimated Glomerular Filt Rate > 60 mL/min (>60); Glucose 155 mg/dL (80-110); HEMOLYSIS < 15 (0-50); Sodium 139 mmol/L (137-145)
[2023-02-13 08:07] LABS: x Labcorp Estim. Avg Glu (eAG) 163 mg/dL (.); x Labcorp Hemoglobin A1c 7.3 % (4.8-5.6)
== END ==
PROVIDERS: PCP Internal Medicine; Referring Provider Internal Medicine; Visit Provider Internal Medicine
DX: E11.69 Type 2 diabetes mellitus with other specified complication (principal); E11.40 Type 2 diabetes mellitus with diabetic neuropathy, unspecified
CPT/HCPCS: 36415; 80048; 83036

== ENCOUNTER → 2023-03-26 13:08 | Outpatient (CLI) | payer MEDICARE, BC, SELFPAY | PROVIDERS: PCP Internal Medicine; Referring Provider Internal Medicine; Visit Provider Internal Medicine | DX: R00.2 Palpitations (principal) | CPT/HCPCS: 93246 ==

== ENCOUNTER → 2023-05-14 09:51 | Outpatient (CLI) | payer MEDICARE, BC, SELFPAY ==
[2023-05-14 11:21] LABS: BUN Creatinine Ratio 16.9 (6-22); Blood Urea Nitrogen 11 mg/dL (7-17); Calcium 10.1 mg/dL (8.4-10.2); Carbon Dioxide 31 mmol/L (22-32); Chloride 100 mmol/L (98-107); Estimated Glomerular Filt Rate > 60 mL/min (>60); Glucose 159 mg/dL (80-110); HEMOLYSIS < 15 (0-50); Sodium 138 mmol/L (137-145)
[2023-05-15 02:57] LABS: x Labcorp Estim. Avg Glu (eAG) 160 mg/dL (.); x Labcorp Hemoglobin A1c 7.2 % (4.8-5.6)
== END ==
PROVIDERS: PCP Internal Medicine; Referring Provider Internal Medicine; Visit Provider Internal Medicine
DX: E11.69 Type 2 diabetes mellitus with other specified complication (principal)
CPT/HCPCS: 36415; 80048; 83036

== ENCOUNTER → 2023-07-11 10:11 | Outpatient (CLI) | payer MEDICARE, BC, SELFPAY ==
[2023-07-11 10:57] LABS: Appearance Urine UA CLEAR; Bilirubin Urine UA NEGATIVE (NEGATIVE); Color Urine UA YELLOW; Glucose Urine UA TRACE g/dL (Negative); Ketones Urine UA NEGATIVE (NEGATIVE); Leukocyte Esterase Urine UA NEGATIVE (NEGATIVE); Nitrite Urine UA NEGATIVE (Negative); Occult Blood Urine UA NEGATIVE (Negative); Protein Urine UA NEGATIVE (Negative); Urobilinogen Urine UA 0.2 E.U./dL (0.2)
[2023-07-11 11:14] LABS: Bacteria Urine Occasional (0-1); Culture Indicated Urine Cult Not Indicated; RBC Urine None Seen (0-5/HPF); Squamous Epithelial Cell Urine 1-5 /HPF (0-5/HPF); Urine Comments Low Volume (<10mL); WBC Urine None Seen (0-5/HPF)
== END ==
PROVIDERS: PCP Internal Medicine; Referring Provider Internal Medicine; Visit Provider Internal Medicine
DX: R30.9 Painful micturition, unspecified (principal)
CPT/HCPCS: 81001

== ENCOUNTER → 2023-08-13 07:50 | Outpatient (CLI) | payer MEDICARE, BC, SELFPAY ==
[2023-08-13 08:29] LABS: Aspartate Aminotransferase 19 IU/L (14-36); BUN Creatinine Ratio 21.1 (6-22); Blood Urea Nitrogen 15 mg/dL (7-17); Calcium 10.5 mg/dL (8.4-10.2); Carbon Dioxide 31 mmol/L (22-32); Chloride 101 mmol/L (98-107); Cholesterol 168 mg/dL (140-199); Estimated Glomerular Filt Rate > 60 mL/min (>60); Glucose 156 mg/dL (80-110); HDL Cholesterol 52 mg/dL (40-60); HEMOLYSIS < 15 (0-50); LDL Cholesterol Calculated 92 mg/dL (<100); Potassium 3.9 mmol/L (3.4-5.1); Sodium 138 mmol/L (137-145); Triglycerides 120 mg/dL (35-150)
[2023-08-13 08:55] LABS: Hemoglobin A1C% w Est Avg Glu 7.1 % (4.0-6.0)
[2023-08-13 16:30] LABS: Creatinine Urine Random 264.1 mg/dL
[2023-08-13 16:47] LABS: Microalbumi Creatinin Ratio Ur 26.5 ug/mg CR (<30)
== END ==
PROVIDERS: PCP Internal Medicine; Referring Provider Internal Medicine; Visit Provider Internal Medicine
DX: E11.69 Type 2 diabetes mellitus with other specified complication (principal); E78.2 Mixed hyperlipidemia; I10 Essential (primary) hypertension
CPT/HCPCS: 36415; 80048; 80061; 82043; 82570; 83036; 84450

== ENCOUNTER 2023-08-31 09:32 | Day surgery (SDC) | payer MEDICARE, BC, SELFPAY ==
[2023-08-31 10:02] VITALS: BP 156/78; PULSE 101; RESP 20; TEMP 36.4; O2SAT 98; BMI 30.7
[2023-08-31] MEDS: LACTATED RINGERS 1,000 ML 42 ML IV (10:13)
--- NOTE | 2023-08-31 10:31 | SUR.PREOP ---
Pt cancelled by Yossi Meza CRNA.
== END 2023-08-31 09:35 | disposition home or self-care (01) ==
LOC: ENDO 09:33
PROVIDERS: PCP Internal Medicine; Referring Provider Surgery; Visit Provider Surgery
DX: Z53.09 Procedure and treatment not carried out because of other contraindication (principal)
CPT/HCPCS: 93005; 93010

== ENCOUNTER → 2023-09-17 13:31 | Outpatient (CLI) | payer MEDICARE, BC, SELFPAY | PROVIDERS: PCP Internal Medicine; Referring Provider Internal Medicine; Visit Provider Internal Medicine | DX: R00.2 Palpitations (principal); I47.10 Supraventricular tachycardia, unspecified | CPT/HCPCS: 93246 ==

== ENCOUNTER → 2023-10-30 13:52 | Outpatient (CLI) | payer MEDICARE, BC, SELFPAY ==
--- NOTE | 2023-10-30 13:54 | DI.MG.S_ITS ---
BILATERAL DIGITAL SCREENING MAMMOGRAM 3D/2D WITH CAD: 10/30/2023 CLINICAL: Routine screening. Family history of breast cancer. Comparison is made to exams dated: 10/25/2022 mammogram, 10/21/2021 mammogram, and 10/30/2019 mammogram - [facility]. There are scattered areas of fibroglandular density in both breasts (category b / 25%-50% glandular tissue). Current study was also evaluated with a Computer Aided Detection (CAD) system. There is a possible new oval equal density focal asymmetry in the left breast at 6 o'clock middle depth. No other significant masses, calcifications, or other findings are seen in either breast. IMPRESSION: INCOMPLETE: NEEDS ADDITIONAL IMAGING EVALUATION The possible new oval equal density focal asymmetry in the left breast is indeterminate. Additional views with possible ultrasound are recommended. Based on the Tyrer Cuzick model (a risk assessment model) the patient's lifetime risk is 2.5% and her 10 year risk is 0.0%. According to the ACR, ACS, and NCCN guidelines, an annual breast MRI exam along with mammogram is recommended if the patient's lifetime risk is 20% or greater. This exam was interpreted at Station ID: [id number]. NOTE: For mammograms, a report in lay terms will be sent to the patient. Approximately 15% of breast malignancies will not be visualized mammographically. In the management of a palpable breast mass, a negative mammogram must not discourage biopsy of a clinically suspicious lesion. Electronically Signed By: Tip Mtz M.D. aty/:10/30/2023 17:42:13 letter sent: Additional Imaging Needed ACR BI-RADS Category 0: Incomplete 3340F
== END ==
PROVIDERS: PCP Internal Medicine; Referring Provider Internal Medicine; Visit Provider Internal Medicine
DX: Z12.31 Encounter for screening mammogram for malignant neoplasm of breast (principal); Z80.3 Family history of malignant neoplasm of breast; R92.323 Mammographic fibroglandular density, bilateral breasts
CPT/HCPCS: 77063; 77067

== ENCOUNTER → 2023-11-12 11:06 | Outpatient (CLI) | payer MEDICARE, BC, SELFPAY ==
[2023-11-12 12:22] LABS: BUN Creatinine Ratio 17.7 (6-22); Blood Urea Nitrogen 11 mg/dL (7-17); Calcium 9.8 mg/dL (8.4-10.2); Carbon Dioxide 29 mmol/L (22-32); Chloride 101 mmol/L (98-107); Estimated Glomerular Filt Rate > 60 mL/min (>60); Glucose 158 mg/dL (80-110); HEMOLYSIS < 15 (0-50); Potassium 3.7 mmol/L (3.4-5.1); Sodium 136 mmol/L (137-145)
== END ==
PROVIDERS: PCP Internal Medicine; Referring Provider Internal Medicine; Visit Provider Internal Medicine
DX: E11.69 Type 2 diabetes mellitus with other specified complication (principal)
CPT/HCPCS: 36415; 80048; 83036

== ENCOUNTER → 2023-11-20 11:49 | Outpatient (CLI) | payer MEDICARE, BC, SELFPAY ==
--- NOTE | 2023-11-20 | DI.MG.S_ITS ---
UNILATERAL LEFT DIGITAL DIAGNOSTIC MAMMOGRAM 3D/2D WITH ADDITIONAL VIEWS: 11/20/2023 CLINICAL: Additional evaluation requested from prior study. Comparison is made to exams dated: 10/30/2023 mammogram, 10/25/2022 mammogram, 10/21/2021 mammogram, and 10/30/2019 mammogram - [facility]. There are scattered areas of fibroglandular density in the left breast (category b / 25%-50% glandular tissue). There is a possible 0.4 cm oval equal density focal asymmetry with an obscured margin in the left breast at 5 o'clock middle depth. This is less prominent. No other significant masses or calcifications are seen in the breast. IMPRESSION: INCOMPLETE: NEEDS ADDITIONAL IMAGING EVALUATION The possible 0.4 cm oval equal density focal asymmetry in the left breast has a differential diagnosis of a cyst, fibroglandular tissue, or a lymph node and is indeterminate. An ultrasound is recommended. Based on the Tyrer Cuzick model (a risk assessment model) the patient's lifetime risk is 2.5% and her 10 year risk is 0.0%. According to the ACR, ACS, and NCCN guidelines, an annual breast MRI exam along with mammogram is recommended if the patient's lifetime risk is 20% or greater. This exam was interpreted at Station ID: [id number]. NOTE: For mammograms, a report in lay terms will be sent to the patient. Approximately 15% of breast malignancies will not be visualized mammographically. In the management of a palpable breast mass, a negative mammogram must not discourage biopsy of a clinically suspicious lesion. Electronically Signed By: Kenroy darling/shefali:11/20/2023 13:24:45 ACR BI-RADS Category 0: Incomplete 3340F
--- NOTE | 2023-11-20 11:51 | DI.US.S_ITS ---
LIMITED ULTRASOUND OF LEFT BREAST: 11/20/2023 CLINICAL: Patient returns today to evaluate a focal asymmetry in the left breast. Comparison is made to exams dated: 10/30/2023 mammogram, 11/20/2023 mammogram, 10/25/2022 mammogram, 10/21/2021 mammogram, and 10/30/2019 mammogram - [facility]. Real-time ultrasound of the left breast 3-6 o'clock region was performed. Castle scale images of the real-time examination were reviewed. No significant abnormalities were seen sonographically in the left breast. Fibroglandular tissue but no mass is identifed in the area of the mammographic focal asymmetry in the left breast 5-6 o'clock position. IMPRESSION: PROBABLY BENIGN No sonographic abnormality is seen corresponding to the mammographic focal asymmetry in the left breast. Follow up left breast mammogram and possible ultrasound in 6 months is recommended to demonstrate stability. This exam was interpreted at Station ID: [id number]. Electronically Signed By: Kenroy Victoria M.D. ar/:11/20/2023 13:27:28 letter sent: Followup Recommended Ultrasound BI-RADS: 3 Probably benign
== END ==
LOC: MAMMO 11:50
PROVIDERS: PCP Internal Medicine; Referring Provider Internal Medicine; Visit Provider Internal Medicine
DX: R92.8 Other abnormal and inconclusive findings on diagnostic imaging of breast (principal); R92.322 Mammographic fibroglandular density, left breast
CPT/HCPCS: 76642; 77065; G0279

== ENCOUNTER → 2024-02-11 09:52 | Outpatient (CLI) | payer MEDICARE, BC, SELFPAY ==
[2024-02-11 11:03] LABS: Hemoglobin A1C% w Est Avg Glu 8.5 % (4.0-6.0)
[2024-02-11 11:27] LABS: BUN Creatinine Ratio 19.7 (6-22); Blood Urea Nitrogen 12 mg/dL (7-17); Calcium 9.3 mg/dL (8.4-10.2); Carbon Dioxide 31 mmol/L (22-32); Chloride 105 mmol/L (98-107); Estimated Glomerular Filt Rate > 60 mL/min (>60); Glucose 148 mg/dL (80-110); HEMOLYSIS < 15 (0-50); Potassium 3.5 mmol/L (3.4-5.1); Sodium 141 mmol/L (137-145)
== END ==
PROVIDERS: PCP Internal Medicine; Referring Provider Internal Medicine; Visit Provider Internal Medicine
DX: E11.69 Type 2 diabetes mellitus with other specified complication (principal)
CPT/HCPCS: 36415; 80048; 83036

== ENCOUNTER 2024-03-19 03:53 | Emergency (ER) | payer MEDICARE, BC, SELFPAY ==
[2024-03-19 04:13] VITALS: BP 144/87; PULSE 113; RESP 16; TEMP 36.7; O2SAT 96; BMI 28.3
[2024-03-19 04:22] LABS: Add Manual Diff / Slide Review NO; Basophils Absolute Auto 100 /uL (0-100); Basophils Percent Auto 0.7 % (0-2); Eosinophils Absolute Auto 0 /uL (0-450); Hematocrit 49.7 % (36-46); Hemoglobin 16.3 g/dL (12.0-16.0); Lymphocytes Absolute Auto 2400 /uL (1100-4500); Mean Corpuscular HGB Conc 32.7 % (30-36); Mean Corpuscular Hemoglobin 28.5 PG (26-34); Monocytes Absolute Auto 700 /uL (0-900); Monocytes Percent Auto 3.9 % (3-14); Neutrophils Absolute Auto 14100 /uL (1500-7000); Neutrophils Percent Auto 81.4 % (50-75); Platelet Count 323 X10^3/uL (150-400); Red Blood Cell Count 5.72 X10^6/uL (4.0-5.2); Red Cell Distribution Width 14.5 % (11.6-14.8); White Blood Cell Count 17.4 X10^3/uL (4.5-11.0)
[2024-03-19] MEDS: ONDANSETRON 4 MG/2 ML INJ IV (04:25)
[2024-03-19] MEDS: SODIUM CHLORIDE 0.9% 1,000 ML 1000 ML IV (04:25)
--- NOTE | 2024-03-19 04:33 | ED_ITS ---
HPI - Nausea/Vomiting/Diarrhea General Chief complaint: Nausea/Vomiting/Diarrhea Stated complaint: vomiting x3 days Time Seen by Provider: 03/19/24 04:14 Source: patient Mode of arrival: Ambulatory History of Present Illness HPI Narrative: Patient is a 78-year-old female. Is here evaluation of 3 days vomiting. No diarrhea. She does have some generalized abdominal discomfort because of the vomiting. No chest pain or shortness of breath. She stated that the symptoms started when she was switched to a new diabetes medication. Has been unable to tolerate even small amounts of liquids at home. No recent travel. No recent antibiotics. Related Data Home Medications Medication Instructions Recorded Confirmed cranberry fruit concentrate 250 mg 500 mg PO DAILY 02/13/24 02/13/24 chewable tablet (Azo Cranberry) Previous Rx's Medication Instructions Recorded clotrimazole-betamethasone 1 1 applic topical BID PRN rash #45 05/10/22 %-0.05 % topical cream grams medroxyprogesterone 2.5 mg tablet 2.5 mg PO 3XW #36 tabs 04/04/23 pravastatin 10 mg tablet 10 mg PO DAILY #90 tabs 06/21/23 ipratropium bromide 42 mcg (0.06 2 spray intranasal TID #15 mL 08/14/23 %) nasal spray nitrofurantoin macrocrystal 100 mg 100 mg PO BID UTI #14 caps 09/10/23 capsule empagliflozin 25 mg tablet 25 mg PO DAILY #90 tabs 11/14/23 (Jardiance) lisinopril 10 mg tablet 10 mg PO DAILY #90 tabs 12/28/23 tramadol 50 mg tablet 100 mg (2 x 50 mg) PO DAILY PRN 01/10/24 pain #90 tabs blood sugar diagnostic (Accu-Chek #100 ea 03/11/24 Marlyn Plus test strips) lancets (Accu-Chek Fastclix Lancet #100 ea 03/11/24 Drum) ondansetron 4 mg disintegrating 4 mg PO Q6H PRN nausea and 03/19/24 tablet vomiting #10 tabs Allergies Allergy/AdvReac Type Severity Reaction Status Date / Time metformin AdvReac Severe Diarrhea Verified 02/13/24 13:04 codeine AdvReac Mild VOMITING Verified 02/13/24 13:04 Review of Systems Review of Systems Narrative: See HPI Patient History Medical History Abnormal mammogram SVT (supraventricular tachycardia) Lumbar spinal stenosis Obesity (BMI 30.0-34.9) Endothelial corneal dystrophy, bilateral Personal history of colonic polyps Vasomotor rhinitis Rosacea, unspecified Chronic low back pain Generalized osteoarthrosis of multiple sites Mixed hyperlipidemia Essential hypertension Polyneuropathy in diseases classified elsewhere Type 2 diabetes mellitus with other specified complication Type 2 diabetes mellitus with diabetic neuropathy, unspecified Vitiligo (~1969) Rosacea (~1969) Mumps Measles Chicken pox Tinnitus (~2014) Hearing loss (~2014) History of urinary incontinence Irritable bowel syndrome Hemorrhoid (~1977) Colon polyps (~1994) Surgical History Anesthesia History of tonsillectomy (~1951) History of removal of cyst (~1994) History of cholecystectomy (~1987) History of cataract removal with insertion of prosthetic lens (~2020) Family History Father Cancer Hypertension Brother Diabetes mellitus Brother History of heart disease Sister Poor health Diabetes mellitus Grandfather Sinus disease Grandmother Diabetes mellitus Stroke Hypertension Grandfather Prostate cancer History of partial surgical removal of colon Grandmother Stroke Social History household members: spouse Smoking Status: Never smoker alcohol intake: never Smoking Status: Never smoker alcohol intake frequency: 0-2 drinks per day Substance Use Type: does not use Exam Initial Vital Signs Initial Vital Signs: Vital Signs Temperature 98.0 F 03/19/24 04:13 Pulse Rate 113 H 03/19/24 04:13 Respiratory Rate 16 03/19/24 04:13 Blood Pressure 144/87 H 03/19/24 04:13 Pulse Oximetry 96 03/19/24 04:13 Oxygen Delivery Method Room Air 03/19/24 04:13 Const General: cooperative, comfortable and No ill appearing HENMT Head: normal to inspection Mouth: No moist mucous membranes Resp Effort & Inspection: normal respiratory effort Auscultation: clear to auscultation bilaterally Cardio Rate: tachycardic Rhythm: regular rhythm GI Inspection: non-distended Palpation: soft, No firm, No guarding, No rigid and tender Skin General: no rashes or lesions noted Neuro General: patient alert, patient awake and moves all extremities Course Orders Ordered: ED Orders 03/19/24 04:06 Complete Blood Count AUTO DIFF Stat Comprehensive Metabolic Panel Stat Lipase Stat Discontinued Medications Sodium Chloride (Normal Saline 0.9%) 1,000 mls @ 1,000 mls/hr IV BOLUS ONE Stop: 03/19/24 05:13 Last Infusion: 03/19/24 05:25 Dose: Infused Documented By: Admin: 03/19/24 04:25 Dose: 1,000 mls/hr Documented By: FERNANDA Metoclopramide HCl (Metoclopramide 10 Mg/2 Ml Inj) 10 mg IV NOW ONE Stop: 03/19/24 05:14 Last Admin: 03/19/24 05:16 Dose: 10 mg Documented By: PRINCESS Ondansetron HCl (Ondansetron 4 Mg/2 Ml Inj) 4 mg IV NOW ONE Stop: 03/19/24 04:15 Last Admin: 03/19/24 04:25 Dose: 4 mg Documented By: FERNANDA Ondansetron HCl (Ondansetron 4 Mg Odt Prepack) 1 bottle MISC DIRECTED ONE Stop: 03/19/24 06:55 Vital Signs Vital signs: Vital Signs - 8 hr 03/19/24 04:13 Temperature 98.0 F Pulse Rate 113 H Respiratory Rate 16 Blood Pressure 144/87 H Pulse Oximetry 96 Oxygen Delivery Method Room Air MDM - Nausea/Vomiting/Diarrhea Lab Data 03/19/24 04:06 03/19/24 04:06 Labs: Lab Results 03/19/24 Range/Units 04:06 WBC 17.4 H (4.5-11.0) X10^3/uL RBC 5.72 H (4.0-5.2) X10^6/uL Hgb 16.3 H (12.0-16.0) g/dL Hct 49.7 H (36-46) % MCV 87.0 (80-100) fL MCH 28.5 (26-34) PG MCHC 32.7 (30-36) % RDW 14.5 (11.6-14.8) % Plt Count 323 (150-400) X10^3/uL Neut % (Auto) 81.4 H (50-75) % Lymph % (Auto) 14.0 L (25-40) % [place] % (Auto) 3.9 (3-14) % Eos % (Auto) 0.0 L (2-4) % Baso % (Auto) 0.7 (0-2) % Neut # (Auto) 13447 H (5651-0598) /uL Lymph # (Auto) 2400 (3308-4599) /uL [place] # (Auto) 700 (0-900) /uL Eos # (Auto) 0 (0-450) /uL Baso # (Auto) 100 (0-100) /uL Sodium 141 (137-145) mmol/L Potassium 3.9 (3.4-5.1) mmol/L Chloride 100 (98-107) mmol/L Carbon Dioxide 17 L (22-32) mmol/L BUN 24 H (7-17) mg/dL Creatinine 0.79 (0.52-1.04) mg/dL Estimated GFR > 60 (>60) mL/min BUN/Creatinine Ratio 30.4 H (6-22) Glucose 199 H (80-110) mg/dL Calcium 10.0 (8.4-10.2) mg/dL Total Bilirubin 0.8 (0.2-1.3) mg/dL AST 24 (14-36) IU/L ALT 18 (<35) IU/L Alkaline Phosphatase 107 (38-126) U/L Total Protein 8.7 H (6.3-8.2) g/dL Albumin 5.1 H (3.5-5.0) g/dL Globulin 3.6 (1.7-4.1) g/dL Albumin/Globulin Ratio 1.4 (1.0-2.8) Lipase 42 (23-300) U/L Point of Care Testing Glucose POC 177 MDM Narrative Medical decision making narrative: Patient has a benign exam here in the emergency department was dehydrated clinically. Was tachycardic. After fluids patient states she was feeling better. Medications helped as well. Tolerating oral intake. I suspect this is related to her diabetes medication. Will have her contact her primary doctor for a follow-up to discuss changing this medicine. She was given return precautions. She expressed understanding and agreement. Discharge Plan Departure Patient Disposition: Home Clinical Impression: Nausea and vomiting Instructions: Nausea and Vomiting-Adult Activity Restrictions/Additional Instructions: I do recommend a bland diet for the next couple days and increasing your fluid intake by drinking small amounts more frequently. Contact your primary doctor to discuss changing her diabetes medicine. Return to the emergency department for new symptoms. Prescriptions: New ondansetron 4 mg tablet,disintegrating 4 mg PO Q6H PRN (Reason: nausea and vomiting) Qty: 10 0RF No Action medroxyprogesterone 2.5 mg tablet 2.5 mg PO 3XW Qty: 36 3RF Rx Instructions: on Sunday, Sunday, Sunday pravastatin 10 mg tablet 10 mg PO DAILY Qty: 90 3RF nitrofurantoin macrocrystal 100 mg capsule 100 mg PO BID Qty: 14 2RF Rx Instructions: must administer with a meal/food; lisinopril 10 mg tablet 10 mg PO DAILY Qty: 90 3RF tramadol 50 mg tablet 100 mg PO DAILY PRN (Reason: pain) Qty: 90 1RF Rx Instructions: 1-2 tablets daily prn (DME) lancets [Accu-Chek Fastclix Lancet Drum] Misc See Rx Instructions .ROUTE .MEDSUPPLY Qty: 100 3RF Rx Instructions: As directed once daily (DME) Accu-Chek Marlyn Plus test strp Strip See Rx Instructions .ROUTE .MEDSUPPLY Qty: 100 3RF Rx Instructions: As directed once daily ipratropium bromide 42 mcg (0.06 %) spray,non-aerosol 2 spray intranasal TID Qty: 15 5RF clotrimazole-betamethasone 1-0.05 % cream 1 applic topical BID PRN (Reason: rash) Qty: 45 3RF Jardiance 25 mg tablet 25 mg PO DAILY Qty: 90 3RF Azo Cranberry 250 mg tablet,chewable 500 mg PO DAILY Referrals: Roni Patterson MD [Primary Care Provider] - Stand Alone Forms: Patient Portal/API
[2024-03-19 04:37] LABS: Alanine Aminotransferase 18 IU/L (<35); Albumin 5.1 g/dL (3.5-5.0); Albumin Globulin Ratio 1.4 (1.0-2.8); Alkaline Phosphatase 107 U/L (38-126); Aspartate Aminotransferase 24 IU/L (14-36); BUN Creatinine Ratio 30.4 (6-22); Bilirubin Total 0.8 mg/dL (0.2-1.3); Blood Urea Nitrogen 24 mg/dL (7-17); Carbon Dioxide 17 mmol/L (22-32); Chloride 100 mmol/L (98-107); Estimated Glomerular Filt Rate > 60 mL/min (>60); Globulin 3.6 g/dL (1.7-4.1); Glucose 199 mg/dL (80-110); HEMOLYSIS 22 (0-50); Lipase 42 U/L (23-300); Potassium 3.9 mmol/L (3.4-5.1); Sodium 141 mmol/L (137-145); Total Protein 8.7 g/dL (6.3-8.2)
[2024-03-19] MEDS: METOCLOPRAMIDE 10 MG/2 ML INJ IV (05:16)
[2024-03-19 06:49] VITALS: PULSE 89; RESP 25; O2SAT 98
[2024-03-19 07:00] VITALS: PULSE 84; RESP 24; O2SAT 98
[2024-03-19 07:01] VITALS: BP 167/74; PULSE 83; RESP 22; O2SAT 98
[2024-03-19] MEDS: ONDANSETRON 4 MG ODT PREPACK 1 BOTTLE MISC (07:11)
[2024-03-19 07:13] VITALS: TEMP 36.3
== END 2024-03-19 07:14 | disposition home or self-care (01) ==
PROVIDERS: Emergency Provider Emergency Medicine; PCP Internal Medicine
DX: R11.2 Nausea with vomiting, unspecified (principal); E86.0 Dehydration
CPT/HCPCS: 80053; 83690; 85025; 96361; 96374; 96375; 99283; 99284; J2405; J2765

== ENCOUNTER 2024-03-23 19:25 | Emergency (ER) | payer MEDICARE, BC, SELFPAY ==
[2024-03-23 19:34] VITALS: BP 146/65; PULSE 56; RESP 16; TEMP 36.4; O2SAT 100; BMI 28.3
[2024-03-23 20:19] LABS: Add Manual Diff / Slide Review NO; Basophils Absolute Auto 100 /uL (0-100); Basophils Percent Auto 0.6 % (0-2); Eosinophils Absolute Auto 100 /uL (0-450); Eosinophils Percent Auto 0.8 % (2-4); Hemoglobin 15.7 g/dL (12.0-16.0); Lymphocytes Absolute Auto 3200 /uL (1100-4500); Lymphocytes Percent Auto 25.5 % (25-40); Mean Corpuscular HGB Conc 33.5 % (30-36); Mean Corpuscular Hemoglobin 28.8 PG (26-34); Monocytes Absolute Auto 700 /uL (0-900); Monocytes Percent Auto 5.6 % (3-14); Neutrophils Absolute Auto 8400 /uL (1500-7000); Neutrophils Percent Auto 67.5 % (50-75); Platelet Count 269 X10^3/uL (150-400); Red Blood Cell Count 5.47 X10^6/uL (4.0-5.2); Red Cell Distribution Width 14.2 % (11.6-14.8); White Blood Cell Count 12.5 X10^3/uL (4.5-11.0)
--- NOTE | 2024-03-23 20:28 | DI.CT.S_ITS ---
PROCEDURE: CT ABDOMEN PELVIS W CON INDICATIONS: LLQ/LOWER ABD PAIN, N/V/D TECHNIQUE: After the administration of intravenous contrast, axial sections acquired from the lung bases to the pubic symphysis. Coronal and sagittal reformats were performed. For radiation dose reduction, the following was used: automated exposure control, adjustment of mA and/or kV according to patient size. COMPARISON: None. FINDINGS: Image quality: Diagnostic. Lower Chest: No significant findings. ABDOMEN: Liver: No solid mass. Gallbladder: Surgically absent Biliary ducts: No biliary dilation. Pancreas: No ductal dilation. Spleen: Size is within normal limits. Adrenal Glands: No adrenal nodules. Kidneys and Ureters: No hydronephrosis. No solid mass. No complex renal cystic lesion which requires follow up. Stomach and Bowel: Normal colonic caliber, without significant wall thickening. No small bowel obstruction. He the distal descending colon diverticulosis with surrounding fat stranding consistent with acute uncomplicated diverticulitis. No free air or abscess. Peritoneum: No abnormal intraperitoneal fluid. No free air. Ventral Wall: Tiny periumbilical fat containing hernia. Abdominal Nodes: No retroperitoneal or mesenteric adenopathy by size criteria. Vessels: Aorta and inferior vena cava are normal in size. PELVIS: Pelvic Organs: Unremarkable. Bladder: No bladder wall thickening, accounting for underdistention. Pelvic Nodes: No enlarged lymph nodes. Miscellaneous: No inguinal hernias are seen. Bones: No aggressive osseous abnormality. Mild degenerative changes of the visualized spine without acute vertebral body compression fracture. IMPRESSION: Acute uncomplicated distal descending colon diverticulitis. Approved by: Codie Wall M.D.,Ph.D. on 03/23/2024 at 22:57
[2024-03-23 20:29] LABS: Alanine Aminotransferase 14 IU/L (<35); Albumin 4.2 g/dL (3.5-5.0); Albumin Globulin Ratio 1.3 (1.0-2.8); Alkaline Phosphatase 93 U/L (38-126); Aspartate Aminotransferase 23 IU/L (14-36); BUN Creatinine Ratio 27.9 (6-22); Bilirubin Total 0.7 mg/dL (0.2-1.3); Blood Urea Nitrogen 24 mg/dL (7-17); Calcium 10.2 mg/dL (8.4-10.2); Carbon Dioxide 25 mmol/L (22-32); Chloride 102 mmol/L (98-107); Estimated Glomerular Filt Rate > 60 mL/min (>60); Globulin 3.2 g/dL (1.7-4.1); Glucose 227 mg/dL (80-110); HEMOLYSIS 19 (0-50); Lipase 126 U/L (23-300); Potassium 3.5 mmol/L (3.4-5.1); Sodium 137 mmol/L (137-145); Total Protein 7.4 g/dL (6.3-8.2)
[2024-03-23] MEDS: ONDANSETRON 4 MG/2 ML INJ IV (20:30)
--- NOTE | 2024-03-23 20:31 | ED.ABDPAIN ---
HPI - Abdominal Pain General Chief Complaint: Abdominal Pain Stated Complaint: recheck- ab pain Time Seen by Provider: 03/23/24 19:28 Source: patient and EMS Mode of arrival: EMS History of Present Illness HPI narrative: 78-year-old female with history of [id number] diabetes presents by EMS from home for nausea, vomiting, diarrhea, abdominal pain. Patient is seen in our emergency department on 03/19/2024 for similar symptoms. She states that at that time her symptoms improved after treatment in the emergency department. She has been symptom-free until earlier today when her symptoms returned. She reports lower abdominal cramping and pain with diarrhea. Nursing reports that patient has some mucousy blood in her stools in the bedside commode. Patient was here today for a repeat evaluation. Related Data Home Medications Medication Instructions Recorded Confirmed empagliflozin 25 mg tablet 25 mg PO DAILY 03/23/24 03/23/24 (Jardiance) Previous Rx's Medication Instructions Recorded clotrimazole-betamethasone 1 1 applic topical BID PRN rash #45 05/10/22 %-0.05 % topical cream grams medroxyprogesterone 2.5 mg tablet 2.5 mg PO 3XW #36 tabs 04/04/23 pravastatin 10 mg tablet 10 mg PO DAILY #90 tabs 06/21/23 ipratropium bromide 42 mcg (0.06 2 spray intranasal TID #15 mL 08/14/23 %) nasal spray lisinopril 10 mg tablet 10 mg PO DAILY #90 tabs 12/28/23 blood sugar diagnostic (Accu-Chek #100 ea 03/11/24 Marlyn Plus test strips) lancets (Accu-Chek Fastclix Lancet #100 ea 03/11/24 Drum) ondansetron 4 mg disintegrating 4 mg PO Q6H PRN nausea and 03/19/24 tablet vomiting #10 tabs amoxicillin 875 mg-potassium 1 tab PO Q12H #20 tabs 03/24/24 clavulanate 125 mg tablet hydrocodone 5 mg-acetaminophen 325 1 tab PO Q8H PRN pain #12 tabs 03/24/24 mg tablet ondansetron 4 mg disintegrating 4 mg PO Q8H PRN nausea and 03/24/24 tablet vomiting #30 tabs Allergies Allergy/AdvReac Type Severity Reaction Status Date / Time metformin AdvReac Severe Diarrhea Verified 02/13/24 13:04 codeine AdvReac Mild VOMITING Verified 02/13/24 13:04 Review of Systems Review of Systems Narrative: See HPI Patient History Medical History Abnormal mammogram SVT (supraventricular tachycardia) Lumbar spinal stenosis Obesity (BMI 30.0-34.9) Endothelial corneal dystrophy, bilateral Personal history of colonic polyps Vasomotor rhinitis Rosacea, unspecified Chronic low back pain Generalized osteoarthrosis of multiple sites Mixed hyperlipidemia Essential hypertension Polyneuropathy in diseases classified elsewhere Type 2 diabetes mellitus with other specified complication Type 2 diabetes mellitus with diabetic neuropathy, unspecified Vitiligo (~1969) Rosacea (~1969) Mumps Measles Chicken pox Tinnitus (~2014) Hearing loss (~2014) History of urinary incontinence Irritable bowel syndrome Hemorrhoid (~1977) Colon polyps (~1994) Surgical History Anesthesia History of tonsillectomy (~1951) History of removal of cyst (~1994) History of cholecystectomy (~1987) History of cataract removal with insertion of prosthetic lens (~2020) Family History Father Cancer Hypertension Brother Diabetes mellitus Brother History of heart disease Sister Poor health Diabetes mellitus Grandfather Sinus disease Grandmother Diabetes mellitus Stroke Hypertension Grandfather Prostate cancer History of partial surgical removal of colon Grandmother Stroke Social History household members: spouse Smoking Status: Never smoker alcohol intake: never Smoking Status: Never smoker alcohol intake frequency: 0-2 drinks per day Substance Use Type: does not use Exam Initial Vital Signs Initial Vital Signs: Vital Signs Temperature 97.6 F 03/23/24 19:34 Pulse Rate 56 L 03/23/24 19:34 Respiratory Rate 16 03/23/24 19:34 Blood Pressure 146/65 H 03/23/24 19:34 Pulse Oximetry 100 03/23/24 19:34 Oxygen Delivery Method Room Air 03/23/24 19:34 Const: Awake, alert, ill-appearing, frail Cardiac: regular rate, regular rhythm RESP: unlabored, clear bilaterally GI: Soft, generalized lower abdominal tenderness to palpation without rebound or guarding Skin: Warm, Dry, intact, no rashes Neuro: AO x3, CN II-XII grossly intact, moves all extremities Course Orders Ordered: ED Orders 03/23/24 20:08 Complete Blood Count AUTO DIFF Stat Comprehensive Metabolic Panel Stat Lipase Stat 03/23/24 20:28 CT abdomen pelvis w con Stat Discontinued Medications Amoxicillin/Clavulanate Potassium (Amoxicillin/Clav 875/125 Mg) 1 tab PO NOW ONE Stop: 03/23/24 23:36 Last Admin: 03/23/24 23:43 Dose: 1 tab Documented By: Sodium Chloride (Normal Saline 0.9%) 1,000 mls @ 1,000 mls/hr IV BOLUS ONE Stop: 03/23/24 23:45 Last Infusion: 03/23/24 23:40 Dose: Infused Documented By: Admin: 03/23/24 22:50 Dose: 1,000 mls/hr Documented By: Metoclopramide HCl (Metoclopramide 10 Mg/2 Ml Inj) 10 mg IV NOW ONE Stop: 03/23/24 23:36 Last Admin: 03/23/24 23:43 Dose: 10 mg Documented By: Morphine Sulfate (Morphine 4 Mg/Ml Inj) 4 mg IV NOW ONE Stop: 03/23/24 20:32 Last Admin: 03/23/24 20:49 Dose: 2 mg Documented By: Ondansetron HCl (Ondansetron 4 Mg/2 Ml Inj) 4 mg IV NOW PRN PRN Reason: Nausea And Vomiting Last Admin: 03/23/24 20:30 Dose: 4 mg Documented By: Ondansetron HCl (Ondansetron 4 Mg Odt) 4 mg PO NOW PRN PRN Reason: Nausea And Vomiting Ondansetron HCl (Ondansetron 4 Mg Odt Prepack) 1 bottle MISC DIRECTED ONE Stop: 03/23/24 23:36 Last Admin: 03/23/24 23:43 Dose: 1 bottle Documented By: Vital Signs Vital signs: Vital Signs - 8 hr 03/23/24 21:30 03/23/24 22:00 03/23/24 23:30 Pulse Rate 75 73 83 Respiratory Rate 24 20 34 H Blood Pressure 127/57 L 125/60 Pulse Oximetry 98 99 Oxygen Delivery Method Room Air Room Air 03/24/24 00:22 Pulse Rate 87 Respiratory Rate 15 Blood Pressure 144/64 H Pulse Oximetry 100 Oxygen Delivery Method Room Air MDM - Abdominal Pain Differential Diagnosis Differential diagnosis: Likely abdominal pain, acute appendicitis and calculus of kidney Lab Data 03/23/24 20:08 03/23/24 20:08 Labs: Lab Results 03/23/24 Range/Units 20:08 WBC 12.5 H (4.5-11.0) X10^3/uL RBC 5.47 H (4.0-5.2) X10^6/uL Hgb 15.7 (12.0-16.0) g/dL Hct 47.0 H (36-46) % MCV 86.0 (80-100) fL MCH 28.8 (26-34) PG MCHC 33.5 (30-36) % RDW 14.2 (11.6-14.8) % Plt Count 269 (150-400) X10^3/uL Neut % (Auto) 67.5 (50-75) % Lymph % (Auto) 25.5 (25-40) % [place] % (Auto) 5.6 (3-14) % Eos % (Auto) 0.8 L (2-4) % Baso % (Auto) 0.6 (0-2) % Neut # (Auto) 8400 H (6306-4003) /uL Lymph # (Auto) 3200 (8655-0618) /uL [place] # (Auto) 700 (0-900) /uL Eos # (Auto) 100 (0-450) /uL Baso # (Auto) 100 (0-100) /uL Sodium 137 (137-145) mmol/L Potassium 3.5 (3.4-5.1) mmol/L Chloride 102 (98-107) mmol/L Carbon Dioxide 25 (22-32) mmol/L BUN 24 H (7-17) mg/dL Creatinine 0.86 (0.52-1.04) mg/dL Estimated GFR > 60 (>60) mL/min BUN/Creatinine Ratio 27.9 H (6-22) Glucose 227 H (80-110) mg/dL Calcium 10.2 (8.4-10.2) mg/dL Total Bilirubin 0.7 (0.2-1.3) mg/dL AST 23 (14-36) IU/L ALT 14 (<35) IU/L Alkaline Phosphatase 93 (38-126) U/L Total Protein 7.4 (6.3-8.2) g/dL Albumin 4.2 (3.5-5.0) g/dL Globulin 3.2 (1.7-4.1) g/dL Albumin/Globulin Ratio 1.3 (1.0-2.8) Lipase 126 D (23-300) U/L Imaging Data CT scan - abdomen/pelvis: Radiologist's Impression: PROCEDURE: CT ABDOMEN PELVIS W CON INDICATIONS: LLQ/LOWER ABD PAIN, N/V/D TECHNIQUE: After the administration of intravenous contrast, axial sections acquired from the lung bases to the pubic symphysis. Coronal and sagittal reformats were performed. For radiation dose reduction, the following was used: automated exposure control, adjustment of mA and/or kV according to patient size. COMPARISON: None. FINDINGS: Image quality: Diagnostic. Lower Chest: No significant findings. ABDOMEN: Liver: No solid mass. Gallbladder: Surgically absent Biliary ducts: No biliary dilation. Pancreas: No ductal dilation. Spleen: Size is within normal limits. Adrenal Glands: No adrenal nodules. Kidneys and Ureters: No hydronephrosis. No solid mass. No complex renal cystic lesion which requires follow up. Stomach and Bowel: Normal colonic caliber, without significant wall thickening. No small bowel obstruction. He the distal descending colon diverticulosis with surrounding fat stranding consistent with acute uncomplicated diverticulitis. No free air or abscess. Peritoneum: No abnormal intraperitoneal fluid. No free air. Ventral Wall: Tiny periumbilical fat containing hernia. Abdominal Nodes: No retroperitoneal or mesenteric adenopathy by size criteria. Vessels: Aorta and inferior vena cava are normal in size. PELVIS: Pelvic Organs: Unremarkable. Bladder: No bladder wall thickening, accounting for underdistention. Pelvic Nodes: No enlarged lymph nodes. Miscellaneous: No inguinal hernias are seen. Bones: No aggressive osseous abnormality. Mild degenerative changes of the visualized spine without acute vertebral body compression fracture. IMPRESSION: Acute uncomplicated distal descending colon diverticulitis. Approved by: Codie Wall M.D.,Ph.D. on 03/23/2024 at 22:57 ECG Data Interpretation: Sinus bradycardia at 58 beats per minute. Normal PA, normal axis, no ST T wave changes, no STEMI MDM Narrative Medical decision making narrative: Ill-appearing but nontoxic patient presenting for abdominal pain with vomiting and diarrhea. Blood noted in bedside commode mixed in with loose stools. Abdomen soft, lower abdominal tenderness to palpation without rebound or guarding. Vital signs stable. Laboratory work significant for WBC count 12.5 (down from 17.4 on 03/19), hemoglobin 15.7, platelets 269, sodium 137, potassium 3.5, creatinine 0.86, normal liver enzymes. CT of the abdomen and pelvis is significant for acute uncomplicated diverticulitis, likely source of patient's pain as well as blood in stool. Patient's pain and nausea controlled with medications, she was received a L of IV fluids and is now resting comfortably in bed, tolerating p.o.. Patient and at bedside counseled on diagnosis. Believe patient can be treated adequately at home with oral medications. Patient counseled that pain medications may cause her to be constipated which can worsen diverticulitis. Patient given initial dose of antibiotics in the emergency department and discharged with prescription for antibiotics, pain medication, nausea medication. Discharge Plan Departure Patient Disposition: Home Clinical Impression: Vomiting, Diverticulitis Instructions: Diverticulitis, DI for Vomiting -- Adult Activity Restrictions/Additional Instructions: Follow a light diet for the next several days. Make sure to drink plenty of fluids with electrolytes and stay hydrated. Take the antinausea medication and antibiotics as prescribed. Finish all of your antibiotics even if you are feeling better. Prescriptions: New ondansetron 4 mg tablet,disintegrating 4 mg PO Q8H PRN (Reason: nausea and vomiting) Qty: 30 0RF amoxicillin-pot clavulanate 875-125 mg tablet 1 tab PO Q12H Qty: 20 0RF hydrocodone-acetaminophen 5-325 mg tablet 1 tab PO Q8H PRN (Reason: pain) Qty: 12 0RF No Action medroxyprogesterone 2.5 mg tablet 2.5 mg PO 3XW Qty: 36 3RF Rx Instructions: on Sunday, Sunday, Sunday pravastatin 10 mg tablet 10 mg PO DAILY Qty: 90 3RF lisinopril 10 mg tablet 10 mg PO DAILY Qty: 90 3RF (DME) lancets [Accu-Chek Fastclix Lancet Drum] Misc See Rx Instructions .ROUTE .MEDSUPPLY Qty: 100 3RF Rx Instructions: As directed once daily (DME) Accu-Chek Marlyn Plus test strp Strip See Rx Instructions .ROUTE .MEDSUPPLY Qty: 100 3RF Rx Instructions: As directed once daily ipratropium bromide 42 mcg (0.06 %) spray,non-aerosol 2 spray intranasal TID Qty: 15 5RF clotrimazole-betamethasone 1-0.05 % cream 1 applic topical BID PRN (Reason: rash) Qty: 45 3RF ondansetron 4 mg tablet,disintegrating 4 mg PO Q6H PRN (Reason: nausea and vomiting) Qty: 10 0RF Jardiance 25 mg tablet 25 mg PO DAILY Referrals: Roni Patterson MD [Primary Care Provider] - Stand Alone Forms: Patient Portal/API
[2024-03-23] MEDS: MORPHINE 4 MG/ML INJ IV (20:49)
[2024-03-23 21:30] VITALS: BP 127/57; PULSE 75; RESP 24; O2SAT 98
[2024-03-23 22:00] VITALS: PULSE 73; RESP 20
[2024-03-23] MEDS: SODIUM CHLORIDE 0.9% 1,000 ML 1000 ML IV (22:50)
[2024-03-23 23:30] VITALS: BP 125/60; PULSE 83; RESP 34; O2SAT 99
[2024-03-23] MEDS: ONDANSETRON 4 MG ODT PREPACK 1 BOTTLE MISC (23:43)
[2024-03-23] MEDS: METOCLOPRAMIDE 10 MG/2 ML INJ IV (23:43)
[2024-03-23] MEDS: AMOXICILLIN/CLAV 875/125 MG 1 TAB PO (23:43)
[2024-03-24 00:22] VITALS: BP 144/64; PULSE 87; RESP 15; O2SAT 100
== END 2024-03-24 00:22 | disposition home or self-care (01) ==
PROVIDERS: Emergency Provider Emergency Medicine; PCP Internal Medicine
DX: K57.32 Diverticulitis of large intestine without perforation or abscess without bleeding (principal); R11.2 Nausea with vomiting, unspecified
CPT/HCPCS: 36415; 74177; 80053; 83690; 85025; 93005; 99284; J2270; J2405; J2765

== ENCOUNTER 2024-03-24 11:39 | Inpatient (IN) | payer MEDICARE, BC, SELFPAY ==
[2024-03-24 11:49] VITALS: BP 144/68; PULSE 107; RESP 18; TEMP 36.5; O2SAT 98; BMI 28.3
[2024-03-24 13:14] LABS: Add Manual Diff / Slide Review NO; Basophils Absolute Auto 0 /uL (0-100); Basophils Percent Auto 0.2 % (0-2); Eosinophils Absolute Auto 0 /uL (0-450); Hematocrit 45.8 % (36-46); Hemoglobin 15.3 g/dL (12.0-16.0); Lymphocytes Absolute Auto 1200 /uL (1100-4500); Lymphocytes Percent Auto 5.6 % (25-40); Mean Corpuscular HGB Conc 33.3 % (30-36); Mean Corpuscular Hemoglobin 28.4 PG (26-34); Mean Corpuscular Volume 85.2 fL (80-100); Monocytes Absolute Auto 800 /uL (0-900); Monocytes Percent Auto 3.8 % (3-14); Neutrophils Absolute Auto 18700 /uL (1500-7000); Neutrophils Percent Auto 90.4 % (50-75); Platelet Count 249 X10^3/uL (150-400); Red Blood Cell Count 5.38 X10^6/uL (4.0-5.2); Red Cell Distribution Width 14.2 % (11.6-14.8); White Blood Cell Count 20.7 X10^3/uL (4.5-11.0)
--- NOTE | 2024-03-24 13:14 | ED.NAVMDI ---
HPI - Nausea/Vomiting/Diarrhea General Chief complaint: Nausea/Vomiting/Diarrhea Stated complaint: Returning; Vomiting, Diverticulitis Time Seen by Provider: 03/24/24 13:14 Source: patient, family, RN notes reviewed and old records reviewed Mode of arrival: Ambulatory Limitations: no limitations History of Present Illness HPI Narrative: 78-year-old female history of evt-ywfqcvd-nreeddhog diabetes who presents with complaint nausea vomiting diarrhea, rectal bleeding abdominal pain. Patient was seen on the 5th as well as last night. Was diagnosed with diverticulitis. Was started on oral antibiotics but has had persistent nausea and vomiting been able to keep anything down. She denies any fevers. She states pain is present but overall controlled. She states she has tried taking oral Zofran without any improvement. She states she has been having diarrhea with every time she throws up. About hourly overnight. She describes large clots. She has not had any persistent here in the department. She denies any new back pain but does have chronic back issues. Patient states no lightheadedness, no chest pain or shortness of breath, no syncope. She has not on any anticoagulants. Reports allergies to metformin and codeine. Patient does not use any tobacco, no regular alcohol or recreational drugs. Dr. Patterson is her primary care physician. She is accompanied by her family. Related Data Home Medications Medication Instructions Recorded Confirmed empagliflozin 25 mg tablet 25 mg PO DAILY 03/23/24 03/24/24 (Jardiance) ipratropium bromide 42 mcg (0.06 2 spray intranasal TID PRN 03/24/24 03/24/24 %) nasal spray Congestion pravastatin 10 mg tablet 10 mg PO DAILY 03/24/24 03/24/24 tramadol 50 mg tablet 50 - 100 mg PO DAILY PRN pain 03/24/24 03/24/24 Previous Rx's Medication Instructions Recorded medroxyprogesterone 2.5 mg tablet 2.5 mg PO 3XW #36 tabs 04/04/23 lisinopril 10 mg tablet 10 mg PO DAILY #90 tabs 12/28/23 ondansetron 4 mg disintegrating 4 mg PO Q6H PRN nausea and 03/19/24 tablet vomiting #10 tabs Allergies Allergy/AdvReac Type Severity Reaction Status Date / Time metformin AdvReac Severe Diarrhea Verified 03/24/24 11:53 codeine AdvReac Mild VOMITING Verified 03/24/24 11:53 Review of Systems Review of Systems ROS Unobtainable: All systems reviewed & are unremarkable except as noted in HPI and below Patient History Medical History Abnormal mammogram SVT (supraventricular tachycardia) Lumbar spinal stenosis Obesity (BMI 30.0-34.9) Endothelial corneal dystrophy, bilateral Personal history of colonic polyps Vasomotor rhinitis Rosacea, unspecified Chronic low back pain Generalized osteoarthrosis of multiple sites Mixed hyperlipidemia Essential hypertension Polyneuropathy in diseases classified elsewhere Type 2 diabetes mellitus with other specified complication Type 2 diabetes mellitus with diabetic neuropathy, unspecified Vitiligo (~1969) Rosacea (~1969) Mumps Measles Chicken pox Tinnitus (~2014) Hearing loss (~2014) History of urinary incontinence Irritable bowel syndrome Hemorrhoid (~1977) Colon polyps (~1994) Surgical History Anesthesia History of tonsillectomy (~1951) History of removal of cyst (~1994) History of cholecystectomy (~1987) History of cataract removal with insertion of prosthetic lens (~2020) Family History Father Cancer Hypertension Brother Diabetes mellitus Brother History of heart disease Sister Poor health Diabetes mellitus Grandfather Sinus disease Grandmother Diabetes mellitus Stroke Hypertension Grandfather Prostate cancer History of partial surgical removal of colon Grandmother Stroke Social History household members: spouse Smoking Status: Never smoker alcohol intake: never Smoking Status: Never smoker alcohol intake frequency: 0-2 drinks per day Substance Use Type: does not use Exam Narrative Exam Narrative: GENERAL: Alert and oriented x three, female in mild distress HEENT: Head normocephalic, atraumatic, EOMI, pupils reactive, face symmetric, dry mucous membranes NECK: Supple, full range of motion CARDIOVASCULAR: Regular rate and rhythm without murmurs, rubs or gallops. RESPIRATORY: Breath sounds equal bilaterally, no wheezes rales or rhonchi. ABDOMEN: Soft, positive for left lower quadrant tenderness. Normoactive bowel sounds all 4 quadrants. No guarding or rebound, rigidity, no mass : No CVA tenderness EXTREMITIES: Normal range of motion, no clubbing or edema. Neurovascularly intact NEUROLOGICAL: Cranial nerves II through XII grossly intact. Moving all extremities SKIN: Warm, dry, no petechiae, no rashes or lesions. Initial Vital Signs Initial Vital Signs: Vital Signs Temperature 97.7 F 03/24/24 11:49 Pulse Rate 107 H 03/24/24 11:49 Respiratory Rate 18 03/24/24 11:49 Blood Pressure 144/68 H 03/24/24 11:49 Pulse Oximetry 98 03/24/24 11:49 Oxygen Delivery Method Room Air 03/24/24 11:49 Course Orders Ordered: Acetaminophen (Acetaminophen 325 Mg Tablet) 650 mg PO Q6H PRN PRN Reason: Fever/Mild Pain (1-3) Heparin Sodium (Porcine) (Heparin 5,000 Unit/Ml Vial) 5,000 unit SUBCUT BID [facility] Last Admin: 03/24/24 20:40 Dose: Not Given Documented By: Piperacillin Sod/Tazobactam (Sod 3.375 gm/ Sodium Chloride) 100 mls @ 25 mls/hr IV Q8H [facility] Last Admin: 03/25/24 03:44 Dose: 25 mls/hr Documented By: Infusion: 03/24/24 23:59 Dose: Infused Documented By: Admin: 03/24/24 19:59 Dose: 25 mls/hr Documented By: Sodium Chloride (Normal Saline 0.9%) 1,000 mls @ 75 mls/hr IV CONT [facility] Last Admin: 03/25/24 06:56 Dose: 75 mls/hr Documented By: Infusion: 03/25/24 06:56 Dose: Infused Documented By: Admin: 03/24/24 18:25 Dose: 75 mls/hr Documented By: SUKH Dextrose (D10w) 100 mls @ 999 mls/hr IV PRN PRN PRN Reason: Hypoglycemia Insulin Human Lispro (Insulin Lispro 100 Unit/Ml 3ml Vial) 0 unit SUBCUT ACHS [facility]; Protocol Last Admin: 03/24/24 20:41 Dose: Not Given Documented By: MS Ipratropium [place] (Ipratropium 0.06% Nasal 15 Ml) 2 spray NASAL TID PRN PRN Reason: Congestion Naloxone HCl (Naloxone 0.4 Mg/Ml Vial) 0.2 mg IV Q2MIN PRN PRN Reason: Opiate Reversal Ondansetron HCl (Ondansetron 4 Mg/2 Ml Inj) 4 mg IV NOW PRN PRN Reason: Nausea And Vomiting Last Admin: 03/24/24 13:19 Dose: 4 mg Documented By: RB Ondansetron HCl (Ondansetron 4 Mg/2 Ml Inj) 4 mg IV Q4HR PRN PRN Reason: Nausea And Vomiting Last Admin: 03/25/24 06:56 Dose: 4 mg Documented By: Prochlorperazine (Prochlorperazine 10 Mg/2 Ml Vial) 10 mg IV Q6HR PRN PRN Reason: Nausea Last Admin: 03/25/24 03:44 Dose: 10 mg Documented By: Discontinued Medications Sodium Chloride (Normal Saline 0.9%) 1,000 mls @ 1,000 mls/hr IV BOLUS ONE Stop: 03/24/24 15:26 Last Infusion: 03/24/24 15:30 Dose: Infused Documented By: Admin: 03/24/24 14:45 Dose: 1,000 mls/hr Documented By: Piperacillin Sod/Tazobactam (Sod 4.5 gm/ Sodium Chloride) 100 mls @ 200 mls/hr IV NOW ONE Stop: 03/24/24 15:39 Last Infusion: 03/24/24 16:33 Dose: Infused Documented By: Admin: 03/24/24 15:50 Dose: 200 mls/hr Documented By: Sodium Chloride (Normal Saline 0.9%) 1,000 mls @ 1,000 mls/hr IV BOLUS ONE Stop: 03/24/24 16:38 Last Infusion: 03/24/24 16:52 Dose: Infused Documented By: Admin: 03/24/24 15:50 Dose: 1,000 mls/hr Documented By: Acetaminophen (Ofirmev) 1,000 mg in 100 mls @ 400 mls/hr IV NOW ONE Stop: 03/24/24 15:53 Last Infusion: 03/24/24 16:08 Dose: Infused Documented By: Admin: 03/24/24 15:50 Dose: 400 mls/hr Documented By: Metoclopramide HCl (Metoclopramide 10 Mg/2 Ml Inj) 10 mg IV NOW ONE Stop: 06/10/24 14:28 Last Admin: 03/24/24 14:45 Dose: 10 mg Documented By: Ondansetron HCl (Ondansetron 4 Mg Odt) 4 mg PO NOW PRN PRN Reason: Nausea And Vomiting Ondansetron HCl (Ondansetron 4 Mg/2 Ml Inj) 4 mg IV Q8HR PRN PRN Reason: Nausea And Vomiting Last Admin: 03/24/24 23:22 Dose: 4 mg Documented By: MS Vital Signs Vital signs: Vital Signs - 8 hr 03/24/24 11:49 03/24/24 16:10 Temperature 97.7 F Pulse Rate 107 H 89 Respiratory Rate 18 18 Blood Pressure 144/68 H 167/71 H Pulse Oximetry 98 97 Oxygen Delivery Method Room Air Room Air MDM - Nausea/Vomiting/Diarrhea Lab Data 03/25/24 05:00 03/25/24 05:00 Labs: Lab Results 03/24/24 03/24/24 Range/Units 13:00 15:58 WBC 20.7 H D (4.5-11.0) X10^3/uL RBC 5.38 H (4.0-5.2) X10^6/uL Hgb 15.3 (12.0-16.0) g/dL Hct 45.8 (36-46) % MCV 85.2 (80-100) fL MCH 28.4 (26-34) PG MCHC 33.3 (30-36) % RDW 14.2 (11.6-14.8) % Plt Count 249 (150-400) X10^3/uL Neut % (Auto) 90.4 H D (50-75) % Lymph % (Auto) 5.6 L (25-40) % [place] % (Auto) 3.8 (3-14) % Eos % (Auto) 0.0 L (2-4) % Baso % (Auto) 0.2 (0-2) % Neut # (Auto) 49151 H (5804-3587) /uL Lymph # (Auto) 1200 (3010-8675) /uL Glenn # (Auto) 800 (0-900) /uL Eos # (Auto) 0 (0-450) /uL Baso # (Auto) 0 (0-100) /uL PT 13.8 H (9.4-12.5) SECONDS INR 1.2 (0.9-1.3) Sodium 142 (137-145) mmol/L Potassium 3.7 (3.4-5.1) mmol/L Chloride 107 (98-107) mmol/L Carbon Dioxide 23 (22-32) mmol/L BUN 15 (7-17) mg/dL Creatinine 0.61 (0.52-1.04) mg/dL Estimated GFR > 60 (>60) mL/min BUN/Creatinine Ratio 24.6 H (6-22) Glucose 177 H (80-110) mg/dL Lactate 0.9 (0.7-2.1) mmol/L Calcium 9.3 (8.4-10.2) mg/dL Total Bilirubin 0.6 (0.2-1.3) mg/dL AST 20 (14-36) IU/L ALT 13 (<35) IU/L Alkaline Phosphatase 83 (38-126) U/L Total Protein 6.9 (6.3-8.2) g/dL Albumin 4.0 (3.5-5.0) g/dL Globulin 2.9 (1.7-4.1) g/dL Albumin/Globulin Ratio 1.4 (1.0-2.8) Lipase 109 (23-300) U/L Procalcitonin 0.218 (<0.5) ng/mL Urine RBC None seen (0-5/HPF) Urine WBC 1-5/hpf (0-5/HPF) Ur Squamous Epith Cells 5-10 /hpf H (0-5/HPF) Urine Bacteria Moderate (10-30) H (None) Ur Culture Indicated? Specimen cultured Vol Urine Centrifuged 10ml (spun) Imaging Data CT scan - abdomen/pelvis: Radiologist's Impression: [address] [address] [address] Scan Report Signed Patient: Maricruz Garcia I MR#: [id number] : 1945 Acct:[id number] Age/Sex: 78 / F Date of Service: 03/24/24 Loc: ED Accession Number: [id number] Procedure: CT abdomen pelvis w con Ordering Provider: Stephenie August D.O. PROCEDURE: CT ABDOMEN PELVIS W CON INDICATIONS: n/v/diarrhea/ recent diverticulitis worse TECHNIQUE: After the administration of intravenous contrast, axial sections acquired from the lung bases to the pubic symphysis. Coronal and sagittal reformats were performed. For radiation dose reduction, the following was used: automated exposure control, adjustment of mA and/or kV according to patient size. COMPARISON: [facility], CT, CT ABDOMEN PELVIS W CON, 03/23/2024, 20:46. FINDINGS: Image quality: Diagnostic. Lower Chest: Small to moderate size hiatal hernia and small paraesophageal lymph nodes. ABDOMEN: Liver: No solid mass. Trace perihepatic ascites anteriorly. Gallbladder: Surgically absent. Biliary ducts: Appropriate biliary tree caliber post cholecystectomy. Pancreas: Normal size and morphology without visible ductal dilatation or inflammation. Punctate calcification. Spleen: Size is within normal limits. Adrenal Glands: No adrenal nodules. Kidneys and Ureters: Bilateral parapelvic renal cysts. No hydronephrosis. Symmetric enhancement. Stomach and Bowel: Circumferential wall thickening and diffuse mural edema involving the distal descending and sigmoid colon. There are several diverticula throughout the sigmoid. There is small amount of adjacent fluid and moderate pericolonic fat stranding. No visible extraluminal gas. No drainable fluid collections. There is trace amount of fluid adjacent to the right colon. The appendix is normal. Small bowel is decompressed. There is mild edema in the gastric antrum and mild mucosal hyperemia. Peritoneum: No free air. Reactive free pelvic fluid present. Ventral Wall: No significant ventral hernia. Abdominal Nodes: No pathologic bulky adenopathy. Vessels: The abdominal aorta, IVC, and portal vein are of normal caliber. PELVIS: Pelvic Organs: Uterus and ovaries are normal. Bladder: No bladder wall thickening. Pelvic Nodes: No enlarged lymph nodes. Miscellaneous: No inguinal hernias are seen. Bones: No aggressive osseous abnormality. IMPRESSION: Similar findings to the prior day's study including distal descending and sigmoid colon inflammation, potentially diverticulitis or infectious colitis given longer segment. There is no extraluminal gas or development of abscess. Trace amount of perihepatic ascites is new. No other acute changes. Dictated by: Martha Naranjo M.D. on 03/24/2024 at 15:40 Approved by: Martha Naranjo M.D. on 03/24/2024 at 15:47 MDM Narrative Medical decision making narrative: 78-year-old female with diverticulitis she has had symptoms starting on the 19 of March, was here last night was found to have diverticulitis on CT that was uncomplicated. Started on oral antibiotics sent home with antiemetics as well as pain management and has had persistent nausea vomiting diarrhea and but able to keep anything down. Patient does appear dry on examination. Labs show increased white count to 20 from 12.5, hemoglobin is 15 platelets are 249. INR is 1.2 electrolytes are otherwise appropriate renal function is appropriate glucose is 177, lactate 0.9 LFTs are negative, procalcitonin 0.218,. Blood cultures were obtained and are pending. Repeat CT to evaluate for abscess or perforation. No new abscess or perforation. Plan for admission for intractable vomiting with diverticulitis. Patient has white count of 20, slightly tachycardic does meet septic criteria. Patient received Zosyn 4 antibiotics. Patient has only had less than 24 hours oral antibiotics. She also received 2 L of fluid. Spoke with Dr. Mariscal, hospitalist: Accepts for observation. Patient appears to be staying longer we will change to inpatient. Discharge Plan Departure Patient Disposition: Admitted as Observation Clinical Impression: Diverticulitis, Vomiting, Sepsis Admit Date/Time: 03/24/24 16:18 Admit Provider: Moshe Mariscal
[2024-03-24 13:18] LABS: INR 1.2 (0.9-1.3); Prothrombin Time 13.8 SECONDS (9.4-12.5)
[2024-03-24] MEDS: ONDANSETRON 4 MG/2 ML INJ IV ×2 (13:19→23:22)
[2024-03-24 13:25] LABS: Alanine Aminotransferase 13 IU/L (<35); Albumin Globulin Ratio 1.4 (1.0-2.8); Alkaline Phosphatase 83 U/L (38-126); Aspartate Aminotransferase 20 IU/L (14-36); BUN Creatinine Ratio 24.6 (6-22); Bilirubin Total 0.6 mg/dL (0.2-1.3); Blood Urea Nitrogen 15 mg/dL (7-17); Calcium 9.3 mg/dL (8.4-10.2); Carbon Dioxide 23 mmol/L (22-32); Chloride 107 mmol/L (98-107); Estimated Glomerular Filt Rate > 60 mL/min (>60); Globulin 2.9 g/dL (1.7-4.1); Glucose 177 mg/dL (80-110); HEMOLYSIS < 15 (0-50); Lipase 109 U/L (23-300); Potassium 3.7 mmol/L (3.4-5.1); Sodium 142 mmol/L (137-145); Total Protein 6.9 g/dL (6.3-8.2)
--- NOTE | 2024-03-24 14:27 | DI.CT.S_ITS ---
PROCEDURE: CT ABDOMEN PELVIS W CON INDICATIONS: n/v/diarrhea/ recent diverticulitis worse TECHNIQUE: After the administration of intravenous contrast, axial sections acquired from the lung bases to the pubic symphysis. Coronal and sagittal reformats were performed. For radiation dose reduction, the following was used: automated exposure control, adjustment of mA and/or kV according to patient size. COMPARISON: [facility], CT, CT ABDOMEN PELVIS W CON, 03/23/2024, 20:46. FINDINGS: Image quality: Diagnostic. Lower Chest: Small to moderate size hiatal hernia and small paraesophageal lymph nodes. ABDOMEN: Liver: No solid mass. Trace perihepatic ascites anteriorly. Gallbladder: Surgically absent. Biliary ducts: Appropriate biliary tree caliber post cholecystectomy. Pancreas: Normal size and morphology without visible ductal dilatation or inflammation. Punctate calcification. Spleen: Size is within normal limits. Adrenal Glands: No adrenal nodules. Kidneys and Ureters: Bilateral parapelvic renal cysts. No hydronephrosis. Symmetric enhancement. Stomach and Bowel: Circumferential wall thickening and diffuse mural edema involving the distal descending and sigmoid colon. There are several diverticula throughout the sigmoid. There is small amount of adjacent fluid and moderate pericolonic fat stranding. No visible extraluminal gas. No drainable fluid collections. There is trace amount of fluid adjacent to the right colon. The appendix is normal. Small bowel is decompressed. There is mild edema in the gastric antrum and mild mucosal hyperemia. Peritoneum: No free air. Reactive free pelvic fluid present. Ventral Wall: No significant ventral hernia. Abdominal Nodes: No pathologic bulky adenopathy. Vessels: The abdominal aorta, IVC, and portal vein are of normal caliber. PELVIS: Pelvic Organs: Uterus and ovaries are normal. Bladder: No bladder wall thickening. Pelvic Nodes: No enlarged lymph nodes. Miscellaneous: No inguinal hernias are seen. Bones: No aggressive osseous abnormality. IMPRESSION: Similar findings to the prior day's study including distal descending and sigmoid colon inflammation, potentially diverticulitis or infectious colitis given longer segment. There is no extraluminal gas or development of abscess. Trace amount of perihepatic ascites is new. No other acute changes. Dictated by: Martha Naranjo M.D. on 03/24/2024 at 15:40 Approved by: Martha Naranjo M.D. on 03/24/2024 at 15:47
[2024-03-24 14:39] LABS: Lactate (Lactic Acid) 0.9 mmol/L (0.7-2.1)
[2024-03-24] MEDS: METOCLOPRAMIDE 10 MG/2 ML INJ IV (14:45)
[2024-03-24] MEDS: SODIUM CHLORIDE 0.9% 1,000 ML 1000 ML IV ×2 (14:45→15:50)
[2024-03-24 14:56] LABS: Procalcitonin 0.218 ng/mL (<0.5)
[2024-03-24] MEDS: ACETAMINOPHEN IV 1,000 MG/100 ML VIAL 400 MG IV (15:50)
[2024-03-24] MEDS: PIPERACILLIN/TAZO 4.5 GM in SODIUM CHLORIDE 0.9% 100 ML IV (15:50)
[2024-03-24 16:10] VITALS: BP 167/71; PULSE 89; RESP 18; O2SAT 97
--- NOTE | 2024-03-24 16:19 | P.HP_ITS ---
History of Present Illness History of Present Illness Date Patient Seen: 03/24/24 Chief complaint: Returning; Vomiting, Diverticulitis Narrative: From ED Doctor: 78-year-old female history of vpg-skqirkx-lrdoyffmw diabetes who presents with complaint nausea vomiting diarrhea, rectal bleeding abdominal pain. Patient was seen on the 5th as well as last night. Was diagnosed with diverticulitis. Was started on oral antibiotics but has had persistent nausea and vomiting been able to keep anything down. She denies any fevers. She states pain is present but overall controlled. She states she has tried taking oral Zofran without any improvement. She states she has been having diarrhea with every time she throws up. About hourly overnight. She describes large clots. She has not had any persistent here in the department. She denies any new back pain but does have chronic back issues. Patient states no lightheadedness, no chest pain or shortness of breath, no syncope. She has not on any anticoagulants. Reports allergies to metformin and codeine. Patient does not use any tobacco, no regular alcohol or recreational drugs. Dr. Patterson is her primary care physician. She is accompanied by her family. Additional information: 2 ED visits: 03/19, 03/[address] today negative for abscess. She adds that she is lost about 12 lb in the last week. She has had a lot of intermittent vomiting free of blood. This has been her primary complaint she has had a little bit of left lower quadrant pain. She has no history of diverticulitis. Her last colonoscopy was about 5 years ago. She was had some rectal bleeding today with red blood clots. She has no history of rectal bleeding or colitis. She denies any fevers. She has had her diabetes medications switched around a bit and dosages adjusted and initially thought her vomiting related more to her diabetic medications. Today she has minimal left lower quadrant pain and her nausea is better after being in the emergency department. She does feel somewhat dehydrated. [facility] Medical History Abnormal mammogram SVT (supraventricular tachycardia) Lumbar spinal stenosis Obesity (BMI 30.0-34.9) Endothelial corneal dystrophy, bilateral Personal history of colonic polyps Vasomotor rhinitis Rosacea, unspecified Chronic low back pain Generalized osteoarthrosis of multiple sites Mixed hyperlipidemia Essential hypertension Polyneuropathy in diseases classified elsewhere Type 2 diabetes mellitus with other specified complication Type 2 diabetes mellitus with diabetic neuropathy, unspecified Vitiligo (~1969) Rosacea (~1969) Mumps Measles Chicken pox Tinnitus (~2014) Hearing loss (~2014) History of urinary incontinence Irritable bowel syndrome Hemorrhoid (~1977) Colon polyps (~1994) Surgical History Anesthesia History of tonsillectomy (~1951) History of removal of cyst (~1994) History of cholecystectomy (~1987) History of cataract removal with insertion of prosthetic lens (~2020) Family History Father Cancer Hypertension Brother Diabetes mellitus Brother History of heart disease Sister Poor health Diabetes mellitus Grandfather Sinus disease Grandmother Diabetes mellitus Stroke Hypertension Grandfather Prostate cancer History of partial surgical removal of colon Grandmother Stroke Social History household members: spouse Smoking Status: Never smoker alcohol intake: never Meds Home Medications and Allergies Home Medications Medication Instructions Recorded Confirmed Type clotrimazole-betamethasone 1 1 applic topical BID PRN rash #45 05/10/22 02/13/24 Rx %-0.05 % topical cream grams medroxyprogesterone 2.5 mg tablet 2.5 mg PO 3XW #36 tabs 04/04/23 03/24/24 Rx ipratropium bromide 42 mcg (0.06 2 spray intranasal TID #15 mL 08/14/23 03/24/24 Rx %) nasal spray lisinopril 10 mg tablet 10 mg PO DAILY #90 tabs 12/28/23 03/24/24 Rx lancets (Accu-Chek Fastclix Lancet #100 ea 03/11/24 Rx Drum) ondansetron 4 mg disintegrating 4 mg PO Q6H PRN nausea and 03/19/24 Rx tablet vomiting #10 tabs empagliflozin 25 mg tablet 25 mg PO DAILY 03/23/24 03/24/24 History (Jardiance) pravastatin 10 mg tablet 10 mg PO DAILY 03/24/24 03/24/24 History tramadol 50 mg tablet 50 - 100 mg PO DAILY PRN pain 03/24/24 03/24/24 History Allergies Allergy/AdvReac Type Severity Reaction Status Date / Time metformin AdvReac Severe Diarrhea Verified 03/24/24 11:53 codeine AdvReac Mild VOMITING Verified 03/24/24 11:53 Review of Systems Review of Systems Narrative: All else reviewed and otherwise unremarkable except as noted in the history and physical. Exam Vital Signs (past 8 hours): - 03/24/24 11:49 03/24/24 16:10 Temperature 97.7 F Pulse Rate 107 H 89 Respiratory Rate 18 18 Blood Pressure 144/68 H 167/71 H Pulse Oximetry 98 97 Oxygen Delivery Method Room Air Room Air Oxygen Delivery Method Room Air Narrative Exam Narrative: NAD, alert and oriented, fluent speech, calm. Normocephalic skull, EOMI, anicteric sclera, symmetric pupils. Oropharynx unremarkable, no droop. Neck supple, midline trachea, no adenopathy. Lungs clear, normal rate and effort. Heart regular, no murmur gallop or rub. Abdomen is soft, non distended and there is some tenderness in the left lower quadrant. Extremities are free of edema. Skin is free of rash or lesions. Joints are not swollen or deformed. Judgment appears to be normal. Objective Imaging CT scan - abdomen: Radiologist's impression: Similar findings to the prior day's study including distal descending and sigmoid colon inflammation, potentially diverticulitis or infectious colitis given longer segment. There is no extraluminal gas or development of abscess. Trace amount of perihepatic ascites is new. No other acute changes. Labs 03/24/24 13:00 03/24/24 13:00 Labs: Laboratory Results - last 24 hr 03/24/24 13:00 WBC 20.7 H D RBC 5.38 H Hgb 15.3 Hct 45.8 MCV 85.2 MCH 28.4 MCHC 33.3 RDW 14.2 Plt Count 249 Neut % (Auto) 90.4 H D Lymph % (Auto) 5.[address] % (Auto) 3.8 Eos % (Auto) 0.0 L Baso % (Auto) 0.2 Neut # (Auto) 51842 H Lymph # (Auto) [address] [place] # (Auto) 800 Eos # (Auto) 0 Baso # (Auto) 0 PT 13.8 H INR 1.2 Sodium 142 Potassium 3.7 Chloride 107 Carbon Dioxide 23 BUN 15 Creatinine 0.61 Estimated GFR > 60 BUN/Creatinine Ratio 24.6 H Glucose 177 H Lactate 0.9 Calcium 9.3 Total Bilirubin 0.6 AST 20 ALT 13 Alkaline Phosphatase 83 Total Protein 6.9 Albumin 4.0 Globulin 2.9 Albumin/Globulin Ratio 1.4 Lipase 109 Procalcitonin 0.218 Assessment & Plan Assessment & Plan narrative: 1. Acute diverticulitis, present on admission and active. 2. Leukocytosis of 20 K, present on admission and active. 3. Hypertension, present on admission and active. 4. Hyperlipidemia, present on admission and stable. 5. DM 2, present on admission and active. 6. Systolic murmur which is chronic. No history of echo. Plan: -continue IV antibiotics for diverticulitis. -gentle IV fluids. -monitor fever and WBC. -out of bed and encourage activity. -stool PCR -cardiac echo She was full resuscitation There is a 1 midnight expectation of possible necessity and she was initially admitted observation status. Her is her proxy decision maker. Time Spent With Patient Time with patient: 30 to 49 minutes with 50% spent counseling/coordinating care Quality MIPS - Admit I confirm the patient?s Advance Care Plan is present, Code status is documented, Surrogate decision maker is in patient?s record [If Yes, STOP here]: Yes MIPS - Meds 'Current medications' to include all prescriptions, qnxw-azw-kuakaty products, herbals, cannabis/cannabidiol products, and vitamin/mineral/dietary (nutritional) supplements. I have utilized all available resources to obtain, update, or review the patient?s current medications. [If Yes, STOP here]: Yes
[2024-03-24 16:29] LABS: Bacteria Urine Moderate (10-30); RBC Urine None Seen (0-5/HPF); Squamous Epithelial Cell Urine 5-10 /HPF (0-5/HPF); Urine Volume 10mL (spun); WBC Urine 1-5/HPF (0-5/HPF)
[2024-03-24 16:30] LABS: Culture Indicated Urine Specimen Cultured
[2024-03-24 17:06] VITALS: BP 118/55; PULSE 84; RESP 17; TEMP 36.3; O2SAT 97
[2024-03-24 17:27] VITALS: BMI 28.3
[2024-03-24] MEDS: SODIUM CHLORIDE 0.9% 1,000 ML 75 ML IV (18:25)
--- NOTE | 2024-03-24 18:25 | PC.NURSE ---
Patient is A&OX4, VSS, afebrile on RA. She arrives from ED this evening at approximately 1700. She denies nausea and is evaluated by hospitalist. She is started on a full liquid diet this evening and tolerating a small amount well. She reports her last BM in ED was watery with blood and clots. She states her last normal BM was over a week ago. She is oriented to room, admission assessment completed, IVF NS at 75ml/hr, items within reach, bed alarm on, frequent rounding.
[2024-03-24 19:00] VITALS: BP 132/56; PULSE 72; RESP 16; TEMP 36.1; O2SAT 99
[2024-03-24] MEDS: PIPERACILLIN/TAZO 3.375 GM in SODIUM CHLORIDE 0.9% 100 ML IV (19:59)
[2024-03-25] MEDS: PROCHLORPERAZINE 10 MG/2 ML VIAL IV (03:44)
[2024-03-25] MEDS: PIPERACILLIN/TAZO 3.375 GM in SODIUM CHLORIDE 0.9% 100 ML IV ×3 (03:44→20:34)
[2024-03-25 05:31] LABS: Add Manual Diff / Slide Review NO; Basophils Absolute Auto 0 /uL (0-100); Basophils Percent Auto 0.2 % (0-2); Eosinophils Absolute Auto 0 /uL (0-450); Hematocrit 42.7 % (36-46); Hemoglobin 14.2 g/dL (12.0-16.0); Lymphocytes Absolute Auto 1400 /uL (1100-4500); Lymphocytes Percent Auto 6.7 % (25-40); Mean Corpuscular HGB Conc 33.4 % (30-36); Mean Corpuscular Hemoglobin 28.6 PG (26-34); Mean Corpuscular Volume 85.7 fL (80-100); Monocytes Absolute Auto 800 /uL (0-900); Monocytes Percent Auto 3.9 % (3-14); Neutrophils Absolute Auto 18100 /uL (1500-7000); Neutrophils Percent Auto 89.2 % (50-75); Platelet Count 200 X10^3/uL (150-400); Red Blood Cell Count 4.98 X10^6/uL (4.0-5.2); Red Cell Distribution Width 14.2 % (11.6-14.8); White Blood Cell Count 20.2 X10^3/uL (4.5-11.0)
[2024-03-25 05:35] LABS: BUN Creatinine Ratio 16.4 (6-22); Blood Urea Nitrogen 10 mg/dL (7-17); Calcium 8.7 mg/dL (8.4-10.2); Carbon Dioxide 22 mmol/L (22-32); Chloride 111 mmol/L (98-107); Estimated Glomerular Filt Rate > 60 mL/min (>60); Glucose 160 mg/dL (80-110); HEMOLYSIS < 15 (0-50); Potassium 3.5 mmol/L (3.4-5.1); Sodium 145 mmol/L (137-145)
[2024-03-25] MEDS: SODIUM CHLORIDE 0.9% 1,000 ML 75 ML IV ×2 (06:56→20:29)
[2024-03-25] MEDS: ONDANSETRON 4 MG/2 ML INJ IV ×3 (06:56→20:37)
--- NOTE | 2024-03-25 07:45 | PM.PN.1 ---
Subjective Subjective Interval history: She had a lot of vomiting last night. She has had minimal diarrhea but some rectal clot. She was mild left lower quadrant abdominal pain. Exam Vital Signs (past 8 hours): Oxygen Delivery Method Room Air Narrative Exam Narrative: NAD, alert and oriented. Fluent speech. She appears fatigued. Lungs are clear, normal rate and effort. Heart is regular, 3/6 systolic murmur gallop and no rub. Abdomen is soft, non distended. Some left lower quadrant tenderness, minimal. Extremities are free of edema. Objective Labs 03/25/24 05:00 03/25/24 05:00 Labs: Laboratory Results - last 24 hr 03/24/24 03/24/24 03/25/24 13:00 15:58 05:00 WBC 20.7 H D 20.2 H RBC 5.38 H 4.98 Hgb 15.3 14.2 Hct 45.8 42.7 MCV 85.2 85.7 MCH 28.4 28.6 MCHC 33.3 33.4 RDW 14.2 14.2 Plt Count 249 200 Neut % (Auto) 90.4 H D 89.2 H Lymph % (Auto) 5.6 L 6.7 L [place] % (Auto) 3.8 3.9 Eos % (Auto) 0.0 L 0.0 L Baso % (Auto) 0.2 0.2 Neut # (Auto) 69286 H 01906 H Lymph # (Auto) 1200 1400 [place] # (Auto) 800 800 Eos # (Auto) 0 0 Baso # (Auto) 0 0 PT 13.8 H INR 1.2 Sodium 142 145 Potassium 3.7 3.5 Chloride 107 111 H Carbon Dioxide 23 22 BUN 15 10 Creatinine 0.61 0.61 Estimated GFR > 60 > 60 BUN/Creatinine Ratio 24.6 H 16.4 Glucose 177 H 160 H Lactate 0.9 Calcium 9.3 8.7 Total Bilirubin 0.6 AST 20 ALT 13 Alkaline Phosphatase 83 Total Protein 6.9 Albumin 4.0 Globulin 2.9 Albumin/Globulin Ratio 1.4 Lipase 109 Procalcitonin 0.218 Urine RBC None seen Urine WBC 1-5/hpf Ur Squamous Epith Cells 5-10 /hpf H Urine Bacteria Moderate (10-30) H Ur Culture Indicated? Specimen cultured Vol Urine Centrifuged 10ml (spun) [facility] Medical History Abnormal mammogram SVT (supraventricular tachycardia) Lumbar spinal stenosis Obesity (BMI 30.0-34.9) Endothelial corneal dystrophy, bilateral Personal history of colonic polyps Vasomotor rhinitis Rosacea, unspecified Chronic low back pain Generalized osteoarthrosis of multiple sites Mixed hyperlipidemia Essential hypertension Polyneuropathy in diseases classified elsewhere Type 2 diabetes mellitus with other specified complication Type 2 diabetes mellitus with diabetic neuropathy, unspecified Vitiligo (~1969) Rosacea (~1969) Mumps Measles Chicken pox Tinnitus (~2014) Hearing loss (~2014) History of urinary incontinence Irritable bowel syndrome Hemorrhoid (~1977) Colon polyps (~1994) Surgical History Anesthesia History of tonsillectomy (~1951) History of removal of cyst (~1994) History of cholecystectomy (~1987) History of cataract removal with insertion of prosthetic lens (~2020) Family History Father Cancer Hypertension Brother Diabetes mellitus Brother History of heart disease Sister Poor health Diabetes mellitus Grandfather Sinus disease Grandmother Diabetes mellitus Stroke Hypertension Grandfather Prostate cancer History of partial surgical removal of colon Grandmother Stroke Social History household members: spouse Smoking Status: Never smoker alcohol intake: never Assessment & Plan Assessment & Plan narrative: 1. Acute diverticulitis vs colitis, present on admission and active. 2. Leukocytosis of 20 K, present on admission and active. 3. Hypertension, present on admission and active. 4. Hyperlipidemia, present on admission and stable. 5. DM 2, present on admission and active. 6. Systolic murmur which is chronic. No history of echo. Plan: -continue IV antibiotics for diverticulitis. -gentle IV fluids. -monitor fever and WBC. -out of bed and encourage activity. -stool PCR CDT and and general PCR. -cardiac echo She requires a 2nd midnight of hospital care and is appropriate for inpatient status. Quality VTE Deep Vein Thrombosis/Pulmonary Embolism Present on Admission: No
[2024-03-25 08:00] VITALS: BP 142/64; PULSE 85; RESP 15; TEMP 36.3; O2SAT 96
[2024-03-25] MEDS: HEPARIN 5,000 UNIT/ML VIAL 5000 UNIT SUBCUT ×2 (08:09→20:34)
[2024-03-25] MEDS: INSULIN LISPRO 100 UNIT/ML 3ML VIAL SUBCUT ×2 (08:10→17:10)
[2024-03-25] MEDS: METOCLOPRAMIDE 10 MG/2 ML INJ 5 MG IV (11:21)
--- NOTE | 2024-03-25 12:35 | CM.DANOTE ---
Initial DCP Assessment Visit Note Reviewed EMR and team rounds for status updates. Met with pt at bedside to introduce self and role, pt was found to be resting, appearing very uncomfortable, facial grimacing, and appearing very exhausted. Pt lives independently at baseline in her own home with her here in [place]. Her will plan to transport her home once she's been medically cleared for d/c. Payor: Medicare PCP: Dr. Patterson Pt is a 78 year-old F who presented to the ED yesterday afternoon with c/o persistent nausea/vomiting, abdominal pain, and rectal bleeding. She had presented on 03/19 with the same issues, was dx with acute diverticulitis, was given a course of oral antibiotics, and was sent home. In the ED, she shared that she had only 1-dose of the antibiotic prior to returning to the ED due to the acuity of her symptoms. CT imaging again confirmed the presence of diverticulitis/colitis, and dx with sepsis. She was started on IV fluids and antibiotics and admitted to the floor for continued tx/evalution. DCP will continue to follow and assist with any further evolving home d/c needs, although no needs are anticipated at this time. Discharge Planning/Care Management CM Discharge Assessment Start: 03/25/24 12:32 Freq: Status: Active Protocol: Document 03/25/24 12:33 DPL (Rec: 03/25/24 12:35 DPL [id number]) Discharge Planning Assessment Assigned Spanish Teacher RASHIDA [place] Advance Directives? Yes Advance Directives on File No History Provided By Patient,Medical Record Has Patient been admitted in last 30 No days? Comment Pt did present to the ED on 03/19 for the same issues. Prior Living Arrangements House Household Members spouse Type of transporation used prior to Drives own vehicle admit Independent with ADL's Yes Is patient alert and oriented? Yes Caregiver for Another No Comment No anticipated home d/c needs at this time. Barriers to Discharge No Discharge Plan Home Transportation Arrangement Spouse Referrals Initiated None needed Whiteboard Updated in Patient Room with Yes name and ext. # of Spanish Teacher Review Status In Process Please Provide Date Initial DC 03/25/24 Assessment Was Performed
[2024-03-25] MEDS: POTASSIUM CHLORIDE 20 MEQ TAB PO (13:06)
[2024-03-25 17:56] LABS: Campylobacter Not Detected (Not Detect); Clostridium difficile toxin AB Not Detected (Not Detect); Plesiomonsa shigelloides Not Detected (Not Detect); Salmonella Not Detected (Not Detect); Vibrio Not Detected (Not Detect); Vibrio cholerae Not Detected (Not Detect); Yersinia enterocolitica Not Detected (Not Detect)
[2024-03-25 17:57] LABS: Adenovirus F 40/41 Not Detected (Not Detect); Astrovirus Not Detected (Not Detect); Cryptosporidium Not Detected (Not Detect); Cyclospora cayetanensis Not Detected (Not Detect); Entamoeba histolytica Not Detected (Not Detect); Enteroaggregative E.coli Not Detected (Not Detect); Enteropathogenic E.coli Not Detected (Not Detect); Enterotoxigenic E.coli It/st Not Detected (Not Detect); Giardia lamblia Not Detected (Not Detect); Norovirus GI/GII Not Detected (Not Detect); Rotavirus A Not Detected (Not Detect); Sapovirus Not Detected (Not Detect); Shiga-like toxin-prod E.coli Not Detected (Not Detect); Shigella/Enteroinvasive E.coli Not Detected (Not Detect)
[2024-03-25 21:16] VITALS: BP 140/60; PULSE 86; RESP 14; TEMP 36.1; O2SAT 98
[2024-03-26] MEDS: PIPERACILLIN/TAZO 3.375 GM in SODIUM CHLORIDE 0.9% 100 ML IV ×3 (03:52→20:42)
[2024-03-26] MEDS: ONDANSETRON 4 MG/2 ML INJ IV ×3 (03:52→23:08)
[2024-03-26 05:48] LABS: Add Manual Diff / Slide Review NO; Basophils Absolute Auto 0 /uL (0-100); Basophils Percent Auto 0.3 % (0-2); Eosinophils Absolute Auto 0 /uL (0-450); Hematocrit 41.5 % (36-46); Hemoglobin 13.3 g/dL (12.0-16.0); Lymphocytes Absolute Auto 1600 /uL (1100-4500); Lymphocytes Percent Auto 10.5 % (25-40); Mean Corpuscular Hemoglobin 28.5 PG (26-34); Monocytes Absolute Auto 800 /uL (0-900); Monocytes Percent Auto 5.1 % (3-14); Neutrophils Absolute Auto 13100 /uL (1500-7000); Neutrophils Percent Auto 84.1 % (50-75); Platelet Count 177 X10^3/uL (150-400); Red Blood Cell Count 4.66 X10^6/uL (4.0-5.2); Red Cell Distribution Width 14.8 % (11.6-14.8); White Blood Cell Count 15.6 X10^3/uL (4.5-11.0)
[2024-03-26 05:50] LABS: BUN Creatinine Ratio 17.5 (6-22); Blood Urea Nitrogen 10 mg/dL (7-17); Calcium 8.8 mg/dL (8.4-10.2); Carbon Dioxide 14 mmol/L (22-32); Chloride 115 mmol/L (98-107); Estimated Glomerular Filt Rate > 60 mL/min (>60); Glucose 131 mg/dL (80-110); Sodium 141 mmol/L (137-145)
[2024-03-26 05:56] LABS: HEMOLYSIS 54 (0-50); Potassium 3.7 mmol/L (3.4-5.1)
[2024-03-26 07:00] VITALS: BP 154/62; PULSE 93; RESP 16; TEMP 36.7; O2SAT 99
--- NOTE | 2024-03-26 07:32 | PM.PN.1 ---
Subjective Subjective Interval history: She was admitted with vomiting and diverticulitis and CT. A loud systolic murmur was discovered on exam which is likely chronic. Echo revealed severe aortic stenosis. Some twinges of pain overnight. Some nausea overnight. Overall she is feeling better. After we discussed her aortic stenosis she does note a decline in her general level of function and stamina over the last year. She has had no difficulties with orthopnea, dyspnea on exertion, or edema. Her white cells are down from 20 to 15k (from yesterday). Exam Vital Signs (past 8 hours): Oxygen Delivery Method Room Air Oxygen Flow Rate 0 Narrative Exam Narrative: NAD, alert and oriented. Fluent speech. Lungs are clear, normal rate and effort. Heart is regular, no murmur gallop or rub. Abdomen is soft, non distended. Extremities are free of edema. Objective Labs 03/26/24 05:25 03/26/24 05:25 Labs: Laboratory Results - last 24 hr 03/25/24 03/26/24 15:36 05:25 WBC 15.6 H RBC 4.66 Hgb 13.3 Hct 41.5 MCV 89.0 D MCH 28.5 MCHC 32.0 RDW 14.8 Plt Count 177 Neut % (Auto) 84.1 H Lymph % (Auto) 10.5 L [place] % (Auto) 5.1 Eos % (Auto) 0.0 L Baso % (Auto) 0.3 Neut # (Auto) 38495 H Lymph # (Auto) 1600 [place] # (Auto) 800 Eos # (Auto) 0 Baso # (Auto) 0 Sodium 141 Potassium 3.7 Chloride 115 H Carbon Dioxide 14 L BUN 10 Creatinine 0.57 Estimated GFR > 60 BUN/Creatinine Ratio 17.5 Glucose 131 H Calcium 8.8 Stl C. cayetanensis PCR Not detected Stool Rotavirus (PCR) Not detected Stool Adenovirus (PCR) Not detected Stool Astrovirus (PCR) Not detected Stool Cryptosporidium PCR Not detected Stl E.coli Shiga Tox PCR Not detected St Sh/Enteroin Ecoli PCR Not detected Stl Enterotoxigenic E PCR Not detected Stool EPEC (PCR) Not detected Stl E. histolytica PCR Not detected Stool Giardia Lamblia PCR Not detected Stool Sapovirus (PCR) Not detected Stl P. shigelloides PCR Not detected St Y.enterocolitica PCR Not detected Stool Vibrio (PCR) Not detected Stl Vibrio cholerae PCR Not detected Stl Enteroaggr Ecoli PCR Not detected Stl Norovirus GI/GII PCR Not detected Campylobacter (PCR) Not detected C. difficile Tox (PCR) Not detected Salmonella (PCR) Not detected [facility] Medical History Abnormal mammogram SVT (supraventricular tachycardia) Lumbar spinal stenosis Obesity (BMI 30.0-34.9) Endothelial corneal dystrophy, bilateral Personal history of colonic polyps Vasomotor rhinitis Rosacea, unspecified Chronic low back pain Generalized osteoarthrosis of multiple sites Mixed hyperlipidemia Essential hypertension Polyneuropathy in diseases classified elsewhere Type 2 diabetes mellitus with other specified complication Type 2 diabetes mellitus with diabetic neuropathy, unspecified Vitiligo (~1969) Rosacea (~1969) Mumps Measles Chicken pox Tinnitus (~2014) Hearing loss (~2014) History of urinary incontinence Irritable bowel syndrome Hemorrhoid (~1977) Colon polyps (~1994) Surgical History Anesthesia History of tonsillectomy (~1951) History of removal of cyst (~1994) History of cholecystectomy (~1987) History of cataract removal with insertion of prosthetic lens (~2020) Family History Father Cancer Hypertension Brother Diabetes mellitus Brother History of heart disease Sister Poor health Diabetes mellitus Grandfather Sinus disease Grandmother Diabetes mellitus Stroke Hypertension Grandfather Prostate cancer History of partial surgical removal of colon Grandmother Stroke Social History household members: spouse Smoking Status: Never smoker alcohol intake: never Assessment & Plan Assessment & Plan narrative: 1. Acute diverticulitis vs colitis, present on admission and active. 2. Leukocytosis, present on admission and active. 3. Hypertension, present on admission and active. 4. Hyperlipidemia, present on admission and stable. 5. DM 2, present on admission and active. 6. Severe aortic stenosis (Dr. Kirkland at [facility] agrees to expedited referral OP), present on admission and active.. Plan: -continue IV antibiotics for diverticulitis (vs colitis). -gentle IV fluids. -monitor fever and WBC. -out of bed and encourage activity. -stool PCR negative (posssible ischemic colitis, related to ?) -hold PO DM medications, correctional lispro. She requires another night of hospital care for IV antibiotics. She was taking very little orally at this point due to exacerbation of pain. Quality VTE Deep Vein Thrombosis/Pulmonary Embolism Present on Admission: No
[2024-03-26] MEDS: METOCLOPRAMIDE 10 MG/2 ML INJ 5 MG IV ×2 (07:45→20:45)
[2024-03-26] MEDS: HEPARIN 5,000 UNIT/ML VIAL 5000 UNIT SUBCUT ×2 (08:01→20:48)
[2024-03-26] MEDS: INSULIN LISPRO 100 UNIT/ML 3ML VIAL SUBCUT (08:03)
--- NOTE | 2024-03-26 10:49 | DIET.CONS ---
Dietary Consultation Note Admission Date: 03/24/2024 16:18 Assessment: 78 y F admitted for V/N/D/abdominal pain. PMH of non-insulin dependent diabetes (A1c 8.5% on 02/11/24). Nutrition screened for pt reported weight loss. Met with pt at bedside, who reports inability to keep any food down this past week. Last had some chocolate glucerna, which resulted in emesis. Before this past week, reports reduced intake with up and downs in ability to tolerate po intake without nausea/vomiting for unknown length of time. reports around a 15 lb (6.8 kg) weight loss within past month. Nutrition focused physical exam performed: mild loss in temporalis and buccal and orbital fat pads Areas assessed: temporalis, clavicle region, interosseous, buccal and orbital fat pads, triceps Ht: 162.56 cm Wt: 74.843 kg BMI: 28.3 UBW: 81.647 kg on 02/13/24 (8% weight loss in 2 months, severe) Last BM: 03/25/24 (03/25/24 16:19) MNA: Timmy Score: 22 Diet: 03/24/24 Dinner Full Liquid Diet Diet Modifications: Nutrition Percent Meal Consumed 25% 03/26/24 10:19 Percent Meal Consumed refused dinner and lunch 03/25/24 17:58 Percent Meal Consumed refused breakfast 03/25/24 09:41 Labs: RBC 4.66 X10^6/uL (4.0-5.2) 03/26/24 05:25 Hgb 13.3 g/dL (12.0-16.0) 03/26/24 05:25 Hct 41.5 % (36-46) 03/26/24 05:25 Creatinine 0.57 mg/dL (0.52-1.04) 03/26/24 05:25 Lactate 0.9 mmol/L (0.7-2.1) 03/24/24 13:00 Nutrition Diagnosis: Severe Acute Protein Calorie Malnutrition r/t decreased ability to consume sufficient energy intake in setting of nausea and vomiting as evidenced by 8% weight loss in 2 months, severe, <50% of estimated energy requirements for 7 days per diet recall, severe, mild muscle loss (temporalis), and mild subcutaneous fat loss (buccal, orbital fat pads) Interventions: 1. Open to try Glucerna at lunch 2. Encouraged intake as tolerated Monitoring/Evaluations: po intakes, ONS tolerance, diet advancement Electronically Signed by: Yoselin Orozco 03/26/24 10:49 Clinical Dietitian [address] [id number]
[2024-03-26] MEDS: SODIUM CHLORIDE 0.9% 1,000 ML 75 ML IV (11:10)
--- NOTE | 2024-03-26 13:56 | CM.DPC ---
DCP Cont. Reviewed EMR and team rounds for status updates. Per Hospitalist, 1-2 more days of IV ABO's before she's ready for d/c. Will follow for any evolving home d/c needs.
--- NOTE | 2024-03-26 14:01 | CM.DPC ---
DCP Cont. Reviewed EMR and team rounds for status updates. Per Hospitalist, pt will need to remain inpt for 1-2 more days in order to improve with IV ABO's. Will monitor for any evolving needs.
[2024-03-26 19:00] VITALS: BP 175/65; PULSE 73; RESP 18; TEMP 36.1; O2SAT 100
[2024-03-27 00:27] VITALS: BP 143/61; PULSE 66
[2024-03-27] MEDS: PROCHLORPERAZINE 10 MG/2 ML VIAL IV (00:27)
[2024-03-27] MEDS: PIPERACILLIN/TAZO 3.375 GM in SODIUM CHLORIDE 0.9% 100 ML IV ×3 (04:15→20:53)
[2024-03-27 08:00] VITALS: BP 122/53; PULSE 71; RESP 14; TEMP 36.9; O2SAT 97
[2024-03-27] MEDS: HEPARIN 5,000 UNIT/ML VIAL 5000 UNIT SUBCUT ×2 (09:08→20:57)
--- NOTE | 2024-03-27 11:39 | CM.DPC ---
DCP Cont. Reviewed EMR and team rounds for status updates. Per Hospitalist, pt will need 1-more day before she is medically stable for d/c. Will continue to monitor for any further evolving needs.
--- NOTE | 2024-03-27 14:59 | PM.PN.1 ---
Subjective Subjective Interval history: 78 F admitted with diverticulitis, improving slightly today. Vomited overnight, but nothing since then. Abdominal pain is slightly improved. Also found to have critical aortic stenosis, but with no severe symptoms outpatient follow up with cardiology recommended. Exam Vital Signs (past 8 hours): - 03/27/24 08:00 Temperature 98.5 F Pulse Rate 71 Respiratory Rate 14 Blood Pressure 122/53 L Pulse Oximetry 97 Oxygen Flow Rate 0 Oxygen Delivery Method Room Air Oxygen Flow Rate 0 Narrative Exam Narrative: NAD, alert and oriented. Fluent speech. Lungs are clear, normal rate and effort. Heart is regular, 4/6 Systolic murmur Abdomen is soft, non distended. Extremities are free of edema. Objective Labs 03/26/24 05:25 03/26/24 05:25 [facility] Medical History Abnormal mammogram SVT (supraventricular tachycardia) Lumbar spinal stenosis Obesity (BMI 30.0-34.9) Endothelial corneal dystrophy, bilateral Personal history of colonic polyps Vasomotor rhinitis Rosacea, unspecified Chronic low back pain Generalized osteoarthrosis of multiple sites Mixed hyperlipidemia Essential hypertension Polyneuropathy in diseases classified elsewhere Type 2 diabetes mellitus with other specified complication Type 2 diabetes mellitus with diabetic neuropathy, unspecified Vitiligo (~1969) Rosacea (~1969) Mumps Measles Chicken pox Tinnitus (~2014) Hearing loss (~2014) History of urinary incontinence Irritable bowel syndrome Hemorrhoid (~1977) Colon polyps (~1994) Surgical History Anesthesia History of tonsillectomy (~1951) History of removal of cyst (~1994) History of cholecystectomy (~1987) History of cataract removal with insertion of prosthetic lens (~2020) Family History Father Cancer Hypertension Brother Diabetes mellitus Brother History of heart disease Sister Poor health Diabetes mellitus Grandfather Sinus disease Grandmother Diabetes mellitus Stroke Hypertension Grandfather Prostate cancer History of partial surgical removal of colon Grandmother Stroke Social History household members: spouse Smoking Status: Never smoker alcohol intake: never Assessment & Plan Assessment & Plan narrative: 1. Acute diverticulitis vs colitis, present on admission and active. 2. Leukocytosis, present on admission and active. 3. Hypertension, present on admission and active. 4. Hyperlipidemia, present on admission and stable. 5. DM 2, present on admission and active. 6. Severe aortic stenosis (Dr. Kirkland at [facility] agrees to expedited referral OP), present on admission and active.. Plan: -continue IV antibiotics for diverticulitis (vs colitis). Currently on zosyn and will continue this. -gentle IV fluids. -monitor fever and WBC. -out of bed and encourage activity. -stool PCR negative (posssible ischemic colitis, related to ?) -hold PO DM medications, correctional lispro. Dispo: remains inpatient, probably home in 1-2 days if continuing to improve PO intake and Quality VTE Deep Vein Thrombosis/Pulmonary Embolism Present on Admission: No
[2024-03-27] MEDS: INSULIN LISPRO 100 UNIT/ML 3ML VIAL SUBCUT (16:48)
[2024-03-27 20:38] VITALS: BP 145/59; PULSE 70; RESP 16; TEMP 36.3; O2SAT 99
[2024-03-28] MEDS: SODIUM CHLORIDE 0.9% 1,000 ML 75 ML IV ×2 (01:59→15:37)
[2024-03-28] MEDS: PIPERACILLIN/TAZO 3.375 GM in SODIUM CHLORIDE 0.9% 100 ML IV ×3 (03:54→20:32)
[2024-03-28 05:48] LABS: Add Manual Diff / Slide Review NO; Basophils Absolute Auto 100 /uL (0-100); Basophils Percent Auto 0.6 % (0-2); Eosinophils Absolute Auto 100 /uL (0-450); Eosinophils Percent Auto 0.8 % (2-4); Hematocrit 38.9 % (36-46); Lymphocytes Absolute Auto 1900 /uL (1100-4500); Lymphocytes Percent Auto 21.6 % (25-40); Mean Corpuscular HGB Conc 33.4 % (30-36); Mean Corpuscular Hemoglobin 28.4 PG (26-34); Mean Corpuscular Volume 85.1 fL (80-100); Monocytes Absolute Auto 900 /uL (0-900); Monocytes Percent Auto 10.2 % (3-14); Neutrophils Absolute Auto 5700 /uL (1500-7000); Neutrophils Percent Auto 66.8 % (50-75); Platelet Count 179 X10^3/uL (150-400); Red Blood Cell Count 4.57 X10^6/uL (4.0-5.2); Red Cell Distribution Width 14.3 % (11.6-14.8); White Blood Cell Count 8.6 X10^3/uL (4.5-11.0)
[2024-03-28 06:00] LABS: Blood Urea Nitrogen 6 mg/dL (7-17); Calcium 8.6 mg/dL (8.4-10.2); Carbon Dioxide 24 mmol/L (22-32); Chloride 110 mmol/L (98-107); Estimated Glomerular Filt Rate > 60 mL/min (>60); Glucose 116 mg/dL (80-110); HEMOLYSIS 24 (0-50); Magnesium 1.9 mg/dL (1.6-2.3); Sodium 142 mmol/L (137-145)
[2024-03-28 06:03] LABS: Potassium 2.6 mmol/L (3.4-5.1)
[2024-03-28 08:00] VITALS: BP 172/66; PULSE 69; RESP 17; TEMP 36.1; O2SAT 98
[2024-03-28] MEDS: HEPARIN 5,000 UNIT/ML VIAL 5000 UNIT SUBCUT ×2 (08:18→20:32)
[2024-03-28] MEDS: ONDANSETRON 4 MG/2 ML INJ IV (08:18)
[2024-03-28] MEDS: POTASSIUM CHLORIDE IN WATER 10 MEQ/100 ML PIGGYBACK 100 MEQ IV ×4 (08:18→12:45)
[2024-03-28] MEDS: POTASSIUM CHLORIDE 20 MEQ TAB PO ×2 (08:19→17:47)
--- NOTE | 2024-03-28 11:50 | DIET.CONS2 ---
Dietary Inpatient Consultation Note Admission Date: 03/24/2024 16:18 Nutrition f/u for continued low po intakes w/ dx of severe acute malnutrition. Pt reports tolerating cream of rice this morning and plans to drink ONS at bedside. Tolerated 25% of McFlurry brought in last night. Reports no incident of emesis last night. Discussed adequate intake as tolerated, small frequent meals as needed, reviewed protein sources, addressed pt questions on best tolerated foods. ONS, BID, monitor po intakes, diet advancement. Diet: 03/24/24 Dinner Full Liquid Diet Diet Modifications: Nutrition Percent Meal Consumed 15 03/27/24 18:00 Percent Meal Consumed 03/27/24 10:47 Percent Meal Consumed 75% 03/26/24 18:00 Percent Meal Consumed 03/26/24 13:09 Electronically Signed by: Yoselin Orozco 03/28/24 11:50 Clinical Dietitian [address] [id number]
--- NOTE | 2024-03-28 13:42 | CM.DPC ---
DCP Continued: Reviewed EMR and team rounds for pt's medical status. Per pt's RN, pt still not medically stable to return home due to low potassium levels. Plan: Anticipating dc tomorrow with spouse to transport, if medically cleared. CM team following for any discharge needs that should arise. ZENY Glover
[2024-03-28] MEDS: INSULIN LISPRO 100 UNIT/ML 3ML VIAL SUBCUT (15:52)
--- NOTE | 2024-03-28 17:26 | PM.PN.1 ---
Subjective Subjective Interval history: 78 F admitted with diverticulitis, improving slightly again today. Abdominal pain is slightly improved. Also found to have critical aortic stenosis, but with no severe symptoms outpatient follow up with cardiology recommended. Exam Vital Signs (past 8 hours): Oxygen Delivery Method Room Air Oxygen Flow Rate 0 Narrative Exam Narrative: NAD, alert and oriented. Fluent speech. Lungs are clear, normal rate and effort. Heart is regular, 4/6 Systolic murmur Abdomen is soft, non distended. Extremities are free of edema. Objective Labs 03/28/24 05:10 03/28/24 05:10 Labs: Laboratory Results - last 24 hr 03/28/24 05:10 WBC 8.6 RBC 4.57 Hgb 13.0 Hct 38.9 MCV 85.1 D MCH 28.4 MCHC 33.4 RDW 14.3 Plt Count 179 Neut % (Auto) 66.8 Lymph % (Auto) 21.6 L [place] % (Auto) 10.2 Eos % (Auto) 0.8 L Baso % (Auto) 0.6 Neut # (Auto) 5700 Lymph # (Auto) 1900 [place] # (Auto) 900 Eos # (Auto) 100 Baso # (Auto) 100 Sodium 142 Potassium 2.6 L* Chloride 110 H Carbon Dioxide 24 BUN 6 L Creatinine 0.50 L Estimated GFR > 60 BUN/Creatinine Ratio 12.0 Glucose 116 H Calcium 8.6 Magnesium 1.9 PFSH Medical History Abnormal mammogram SVT (supraventricular tachycardia) Lumbar spinal stenosis Obesity (BMI 30.0-34.9) Endothelial corneal dystrophy, bilateral Personal history of colonic polyps Vasomotor rhinitis Rosacea, unspecified Chronic low back pain Generalized osteoarthrosis of multiple sites Mixed hyperlipidemia Essential hypertension Polyneuropathy in diseases classified elsewhere Type 2 diabetes mellitus with other specified complication Type 2 diabetes mellitus with diabetic neuropathy, unspecified Vitiligo (~1969) Rosacea (~1969) Mumps Measles Chicken pox Tinnitus (~2014) Hearing loss (~2014) History of urinary incontinence Irritable bowel syndrome Hemorrhoid (~1977) Colon polyps (~1994) Surgical History Anesthesia History of tonsillectomy (~1951) History of removal of cyst (~1994) History of cholecystectomy (~1987) History of cataract removal with insertion of prosthetic lens (~2020) Family History Father Cancer Hypertension Brother Diabetes mellitus Brother History of heart disease Sister Poor health Diabetes mellitus Grandfather Sinus disease Grandmother Diabetes mellitus Stroke Hypertension Grandfather Prostate cancer History of partial surgical removal of colon Grandmother Stroke Social History household members: spouse Smoking Status: Never smoker alcohol intake: never Assessment & Plan Assessment & Plan narrative: 1. Acute diverticulitis vs colitis, present on admission and active. 2. Leukocytosis, present on admission and active. 3. Hypertension, present on admission and active. 4. Hyperlipidemia, present on admission and stable. 5. DM 2, present on admission and active. 6. Severe aortic stenosis (Dr. Kirkland at [facility] agrees to expedited referral OP), present on admission and active.. Plan: --patient still not tolerating much oral intake. She would like to try a regular meal tomorrow morning, still feels a bit nauseous today. She had another episode of vomiting, would ideally like to see her tolerating adequate PO intake, and ability to keep down oral antibiotics prior to discharge home. -continue IV antibiotics for diverticulitis (vs colitis). Currently on zosyn and will continue this. -continue gentle IV fluids -monitor fever and WBC. Though no fever and leukocytosis now resolved. -out of bed and encourage activity. -stool PCR negative (posssible ischemic colitis, related to ?) -hold PO DM medications, correctional lispro. Dispo: remains inpatient, probably home in 1-2 days if continuing to improve PO intake and Quality VTE Deep Vein Thrombosis/Pulmonary Embolism Present on Admission: No
[2024-03-28 20:14] VITALS: BP 148/67; PULSE 75; RESP 16; TEMP 36.4; O2SAT 97
[2024-03-29] MEDS: PIPERACILLIN/TAZO 3.375 GM in SODIUM CHLORIDE 0.9% 100 ML IV ×3 (04:58→21:38)
[2024-03-29] MEDS: SODIUM CHLORIDE 0.9% 1,000 ML 75 ML IV (04:59)
[2024-03-29 06:23] LABS: Add Manual Diff / Slide Review NO; Basophils Absolute Auto 0 /uL (0-100); Basophils Percent Auto 0.6 % (0-2); Eosinophils Absolute Auto 100 /uL (0-450); Eosinophils Percent Auto 1.8 % (2-4); Hemoglobin 12.6 g/dL (12.0-16.0); Lymphocytes Absolute Auto 2400 /uL (1100-4500); Lymphocytes Percent Auto 37.7 % (25-40); Mean Corpuscular Hemoglobin 28.4 PG (26-34); Mean Corpuscular Volume 83.6 fL (80-100); Monocytes Absolute Auto 700 /uL (0-900); Monocytes Percent Auto 10.8 % (3-14); Neutrophils Absolute Auto 3200 /uL (1500-7000); Neutrophils Percent Auto 49.1 % (50-75); Platelet Count 208 X10^3/uL (150-400); Red Blood Cell Count 4.43 X10^6/uL (4.0-5.2); Red Cell Distribution Width 14.1 % (11.6-14.8); White Blood Cell Count 6.4 X10^3/uL (4.5-11.0)
[2024-03-29 06:48] LABS: Blood Urea Nitrogen 4 mg/dL (7-17); Calcium 8.6 mg/dL (8.4-10.2); Carbon Dioxide 25 mmol/L (22-32); Chloride 111 mmol/L (98-107); Estimated Glomerular Filt Rate > 60 mL/min (>60); Glucose 119 mg/dL (80-110); HEMOLYSIS 20 (0-50); Magnesium 1.8 mg/dL (1.6-2.3); Potassium 2.9 mmol/L (3.4-5.1); Sodium 139 mmol/L (137-145)
[2024-03-29 07:38] VITALS: BP 127/68; PULSE 65; RESP 16; TEMP 36.7; O2SAT 99
[2024-03-29] MEDS: HEPARIN 5,000 UNIT/ML VIAL 5000 UNIT SUBCUT ×2 (08:07→21:37)
[2024-03-29] MEDS: POTASSIUM CHLORIDE 20 MEQ TAB PO ×3 (08:07→12:06)
[2024-03-29 10:14] VITALS: BP 127/68; PULSE 65
[2024-03-29] MEDS: lisinopriL 10 MG TABLET PO (10:14)
[2024-03-29] MEDS: INSULIN LISPRO 100 UNIT/ML 3ML VIAL SUBCUT ×2 (12:00→21:36)
--- NOTE | 2024-03-29 15:35 | P.PN_ITS ---
Subjective Subjective Interval history: 78-year-old female with diabetes mellitus type 2, hypertension, hyperlipidemia, and diagnosis this admission of critical aortic stenosis who was admitted with acute descending colon diverticulitis versus infectious colitis of the distal descending and sigmoid colon. Patient reports she is slowly doing a little bit better. She was able to take in her for solid food last night. No significant nausea. No emesis. She did take a walk on the unit with her shortly before I arrived. She states it seemed harder today than it has been the prior 2 days. No chest pain or shortness a breath. Exam Vital Signs (past 8 hours): - 03/29/24 07:38 03/29/24 10:14 Temperature 98.1 F Pulse Rate 65 65 Respiratory Rate 16 Blood Pressure 127/68 127/68 Pulse Oximetry 99 Oxygen Delivery Method Room Air Oxygen Flow Rate 0 Narrative Exam Narrative: GEN: Elderly female, Alert and oriented x 3, NAD HEENT:NC, Face symmetric CHEST: Respiratory excursions symmetric, CTAB CV: RRR, no R/G, grade 4/6 systolic murmur heard best at the left sternal border ABD: Soft, NT/ND, BT present in all 4 quadrants, no organomegaly or masses appreciated EXTR: warm, well perfused, no C/C/E SKIN: warm and dry, no rash NEURO: Alert and oriented x 3, nonfocal Objective Labs 03/29/24 05:36 03/29/24 05:36 Labs: Laboratory Results - last 24 hr 03/29/24 05:36 WBC 6.4 RBC 4.43 Hgb 12.6 Hct 37.0 MCV 83.6 MCH 28.4 MCHC 34.0 RDW 14.1 Plt Count 208 Neut % (Auto) 49.1 L Lymph % (Auto) 37.7 [place] % (Auto) 10.8 Eos % (Auto) 1.8 L Baso % (Auto) 0.6 Neut # (Auto) 3200 Lymph # (Auto) 2400 [place] # (Auto) 700 Eos # (Auto) 100 Baso # (Auto) 0 Sodium 139 Potassium 2.9 L Chloride 111 H Carbon Dioxide 25 BUN 4 L Creatinine 0.50 L Estimated GFR > 60 BUN/Creatinine Ratio 8.0 Glucose 119 H Calcium 8.6 Magnesium 1.8 PFSH Medical History Abnormal mammogram SVT (supraventricular tachycardia) Lumbar spinal stenosis Obesity (BMI 30.0-34.9) Endothelial corneal dystrophy, bilateral Personal history of colonic polyps Vasomotor rhinitis Rosacea, unspecified Chronic low back pain Generalized osteoarthrosis of multiple sites Mixed hyperlipidemia Essential hypertension Polyneuropathy in diseases classified elsewhere Type 2 diabetes mellitus with other specified complication Type 2 diabetes mellitus with diabetic neuropathy, unspecified Vitiligo (~1969) Rosacea (~1969) Mumps Measles Chicken pox Tinnitus (~2014) Hearing loss (~2014) History of urinary incontinence Irritable bowel syndrome Hemorrhoid (~1977) Colon polyps (~1994) Surgical History Anesthesia History of tonsillectomy (~1951) History of removal of cyst (~1994) History of cholecystectomy (~1987) History of cataract removal with insertion of prosthetic lens (~2020) Family History Father Cancer Hypertension Brother Diabetes mellitus Brother History of heart disease Sister Poor health Diabetes mellitus Grandfather Sinus disease Grandmother Diabetes mellitus Stroke Hypertension Grandfather Prostate cancer History of partial surgical removal of colon Grandmother Stroke Social History household members: spouse Smoking Status: Never smoker alcohol intake: never Assessment & Plan Assessment & Plan narrative: 1. Descending colon/sigmoid colitis versus diverticulitis Patient is slowly improving. She was able to hold down some solid food last night. She continues on Zosyn. Will saline lock her IV today. White blood cell count has improved from 15.6 on the 12th-6.4 today. 2. Hypokalemia Potassium mildly improved from 2.6-2.9. Will continue to replete. 3. Critical aortic stenosis Echocardiogram has not been read, but it is reported to me that she was found to have critical aortic stenosis. She is planned to be seen by Dr. Kirkland, [facility]. She has no congestive heart failure symptoms. Appears euvolemic. 4. Left breast mass Patient tells me he had a mass found recently and has been undergoing workup. Upon review, she had a mammogram performed in October of this year followed by a breast ultrasound. The recommendation was for follow-up in 6 months which will be due in May. . Diabetes mellitus type 2 She does note her blood sugars have been rather volatile lately. Her blood sugars have ranged from 123-152 in the past 24 hours. Code status Full Prophylaxis On heparin Disposition Possible discharge in the next 1-2 day Quality VTE Deep Vein Thrombosis/Pulmonary Embolism Present on Admission: No
[2024-03-29 19:35] VITALS: BP 144/62; PULSE 75; RESP 16; TEMP 36.6; O2SAT 98
[2024-03-30 05:53] LABS: Add Manual Diff / Slide Review NO; Basophils Absolute Auto 0 /uL (0-100); Basophils Percent Auto 0.6 % (0-2); Eosinophils Absolute Auto 200 /uL (0-450); Eosinophils Percent Auto 2.5 % (2-4); Hematocrit 34.6 % (36-46); Hemoglobin 11.8 g/dL (12.0-16.0); Lymphocytes Absolute Auto 2300 /uL (1100-4500); Lymphocytes Percent Auto 35.8 % (25-40); Mean Corpuscular Hemoglobin 28.6 PG (26-34); Monocytes Absolute Auto 700 /uL (0-900); Monocytes Percent Auto 10.6 % (3-14); Neutrophils Absolute Auto 3200 /uL (1500-7000); Neutrophils Percent Auto 50.5 % (50-75); Platelet Count 179 X10^3/uL (150-400); Red Blood Cell Count 4.12 X10^6/uL (4.0-5.2); Red Cell Distribution Width 13.8 % (11.6-14.8); White Blood Cell Count 6.4 X10^3/uL (4.5-11.0)
[2024-03-30] MEDS: PIPERACILLIN/TAZO 3.375 GM in SODIUM CHLORIDE 0.9% 100 ML IV ×3 (06:05→20:03)
[2024-03-30 06:49] LABS: BUN Creatinine Ratio 11.4 (6-22); Blood Urea Nitrogen 5 mg/dL (7-17); Calcium 8.2 mg/dL (8.4-10.2); Carbon Dioxide 25 mmol/L (22-32); Chloride 111 mmol/L (98-107); Estimated Glomerular Filt Rate > 60 mL/min (>60); Glucose 125 mg/dL (80-110); HEMOLYSIS < 15 (0-50); Magnesium 1.7 mg/dL (1.6-2.3); Potassium 2.8 mmol/L (3.4-5.1); Sodium 139 mmol/L (137-145)
[2024-03-30 07:00] VITALS: BP 151/69; PULSE 72; RESP 20; TEMP 36.7; O2SAT 98
[2024-03-30 08:22] VITALS: BP 151/69; PULSE 72
[2024-03-30] MEDS: lisinopriL 10 MG TABLET PO (08:22)
[2024-03-30] MEDS: INSULIN LISPRO 100 UNIT/ML 3ML VIAL SUBCUT ×3 (08:23→18:00)
[2024-03-30] MEDS: POTASSIUM CHLORIDE 20 MEQ TAB 40 MEQ PO ×3 (08:23→18:00)
[2024-03-30] MEDS: HEPARIN 5,000 UNIT/ML VIAL 5000 UNIT SUBCUT ×2 (08:24→20:07)
[2024-03-30] MEDS: MAGNESIUM SULFATE 2 GM/50 ML PIGGYBACK IV (11:03)
--- NOTE | 2024-03-30 11:23 | CM.DPC ---
DCP Cont. Reviewed EMR and team rounds for status updates. Per Hospitalist, pt is having low potassium today, will need 1-more day before medically cleared for home d/c.
[2024-03-30 14:18] LABS: BUN Creatinine Ratio 12.3 (6-22); Blood Urea Nitrogen 7 mg/dL (7-17); Calcium 8.9 mg/dL (8.4-10.2); Carbon Dioxide 31 mmol/L (22-32); Chloride 105 mmol/L (98-107); Estimated Glomerular Filt Rate > 60 mL/min (>60); Glucose 199 mg/dL (80-110); HEMOLYSIS < 15 (0-50); Potassium 3.4 mmol/L (3.4-5.1); Sodium 140 mmol/L (137-145)
--- NOTE | 2024-03-30 15:06 | PM.PN.1 ---
Subjective Subjective Interval history: Patient now able to tolerate po solid foods. She has very little appetite however. Had some diarrhea today. K 2.8. Exam Vital Signs (past 8 hours): - 03/30/24 08:22 03/30/24 09:00 Pulse Rate 72 Blood Pressure 151/69 H Oxygen Delivery Method Room Air Oxygen Delivery Method Room Air Oxygen Flow Rate 0 Narrative Exam Narrative: GEN: Elderly female, Alert and oriented x 3, NAD HEENT:NC, Face symmetric CHEST: Respiratory excursions symmetric, CTAB CV: RRR, no R/G, grade 4/6 systolic murmur heard best at the left sternal border ABD: Soft, NT/ND, BT present in all 4 quadrants, no organomegaly or masses appreciated EXTR: warm, well perfused, no C/C/E SKIN: warm and dry, no rash NEURO: Alert and oriented x 3, nonfocal Objective Labs 03/30/24 05:39 03/30/24 13:40 Labs: Laboratory Results - last 24 hr 03/30/24 03/30/24 05:39 13:40 WBC 6.4 RBC 4.12 Hgb 11.8 L Hct 34.6 L MCV 84.0 MCH 28.6 MCHC 34.0 RDW 13.8 Plt Count 179 Neut % (Auto) 50.5 Lymph % (Auto) 35.8 [place] % (Auto) 10.6 Eos % (Auto) 2.5 Baso % (Auto) 0.6 Neut # (Auto) 3200 Lymph # (Auto) 2300 [place] # (Auto) 700 Eos # (Auto) 200 Baso # (Auto) 0 Sodium 139 140 Potassium 2.8 L 3.4 Chloride 111 H 105 Carbon Dioxide 25 31 BUN 5 L 7 Creatinine 0.44 L 0.57 Estimated GFR > 60 > 60 BUN/Creatinine Ratio 11.4 12.3 Glucose 125 H 199 H Calcium 8.2 L 8.9 Magnesium 1.7 PFSH Medical History Abnormal mammogram SVT (supraventricular tachycardia) Lumbar spinal stenosis Obesity (BMI 30.0-34.9) Endothelial corneal dystrophy, bilateral Personal history of colonic polyps Vasomotor rhinitis Rosacea, unspecified Chronic low back pain Generalized osteoarthrosis of multiple sites Mixed hyperlipidemia Essential hypertension Polyneuropathy in diseases classified elsewhere Type 2 diabetes mellitus with other specified complication Type 2 diabetes mellitus with diabetic neuropathy, unspecified Vitiligo (~1969) Rosacea (~1969) Mumps Measles Chicken pox Tinnitus (~2014) Hearing loss (~2014) History of urinary incontinence Irritable bowel syndrome Hemorrhoid (~1977) Colon polyps (~1994) Surgical History Anesthesia History of tonsillectomy (~1951) History of removal of cyst (~1994) History of cholecystectomy (~1987) History of cataract removal with insertion of prosthetic lens (~2020) Family History Father Cancer Hypertension Brother Diabetes mellitus Brother History of heart disease Sister Poor health Diabetes mellitus Grandfather Sinus disease Grandmother Diabetes mellitus Stroke Hypertension Grandfather Prostate cancer History of partial surgical removal of colon Grandmother Stroke Social History household members: spouse Smoking Status: Never smoker alcohol intake: never Assessment & Plan Assessment & Plan narrative: 1. Descending colon/sigmoid colitis versus diverticulitis Patient is slowly improving. She is now tolerating po solids. She continues on Zosyn, will stop tomorrow to complete 7 days. Will saline lock her IV today. WBC now normal. 2. Hypokalemia Potassium 2.8 this morning. Will continue to replete. 3. Critical aortic stenosis Echocardiogram has not been read, but it is reported to me that she was found to have critical aortic stenosis. She is planned to be seen by Dr. Kirkland, [facility]. She has no congestive heart failure symptoms. Appears euvolemic. 4. Left breast mass Patient tells me he had a mass found recently and has been undergoing workup. Upon review, she had a mammogram performed in October of this year followed by a breast ultrasound. The recommendation was for follow-up in 6 months which will be due in May. 5. Diabetes mellitus type 2 She does note her blood sugars have been rather volatile lately. Her blood sugars have ranged from 116-198 in the past 24 hours. Code status Full Prophylaxis On heparin Disposition Home on 03/31. Quality VTE Deep Vein Thrombosis/Pulmonary Embolism Present on Admission: No
[2024-03-30 19:21] VITALS: BP 147/65; PULSE 85; RESP 16; TEMP 35.7; O2SAT 99
[2024-03-30] MEDS: SODIUM CHLORIDE 0.9% FLUSH 10 ML IV (20:03)
--- NOTE | 2024-03-30 21:16 | PC.NURSE ---
Patient is alert and oriented. Breath sounds CTA with RA sat of 99%. HRR w/murmur. BP elevated at 147/65. Denied nausea. BT present and abdomen is soft and non-tender. Reports earlier loose stools but states they are firming up; educated that she has imodium ordered should she have more loose stools. Denied dysuria but reports urgency and some incontinence so is wearing a pull-up. Is able to move self in bed. Has been independent in room but day RN reports increased back pain related to spinal stenosis and some unsteadiness on feet so instructed to call for assistance when getting up tonight and bed alarm activated; verbalized understanding. Agreeable to having bilateral calf SCD's applied. Denied pain at time of assessment. Fall risk score is moderate.
[2024-03-31] MEDS: ACETAMINOPHEN 325 MG TABLET 650 MG PO (00:42)
[2024-03-31] MEDS: PIPERACILLIN/TAZO 3.375 GM in SODIUM CHLORIDE 0.9% 100 ML IV (04:18)
[2024-03-31] MEDS: SODIUM CHLORIDE 0.9% FLUSH 10 ML IV ×2 (04:18→08:20)
[2024-03-31 06:26] LABS: BUN Creatinine Ratio 12.3 (6-22); Blood Urea Nitrogen 7 mg/dL (7-17); Calcium 8.3 mg/dL (8.4-10.2); Carbon Dioxide 31 mmol/L (22-32); Chloride 108 mmol/L (98-107); Estimated Glomerular Filt Rate > 60 mL/min (>60); Glucose 139 mg/dL (80-110); HEMOLYSIS < 15 (0-50); Potassium 3.7 mmol/L (3.4-5.1); Sodium 139 mmol/L (137-145)
[2024-03-31 08:00] VITALS: BP 151/64; PULSE 71; RESP 16; TEMP 36.2; O2SAT 98
[2024-03-31] MEDS: POTASSIUM CHLORIDE 20 MEQ TAB 40 MEQ PO (08:18)
[2024-03-31] MEDS: INSULIN LISPRO 100 UNIT/ML 3ML VIAL SUBCUT ×2 (08:19→12:15)
[2024-03-31] MEDS: lisinopriL 10 MG TABLET PO (08:19)
[2024-03-31] MEDS: HEPARIN 5,000 UNIT/ML VIAL 5000 UNIT SUBCUT (08:19)
--- NOTE | 2024-03-31 09:39 | CM.DPNOTE ---
DCP Note [employer] reviewed EMR. Per hospitalist, anticipate dc today. Per CM notes, no DCP/CM needs identified. P: home with spouse to transport. CM team will continue to follow as needed. RASHIDA Richardson
--- NOTE | 2024-03-31 10:15 | PT-IP ANOTE ---
Discussed pt in rounds. Pt d/cing and no acute PT needs per doctor. Will d/c PT order.
--- NOTE | 2024-03-31 12:10 | PM.DS.1 ---
History of Present Illness History of Present Illness Chief complaint: Returning; Vomiting, Diverticulitis Narrative: From ED Doctor: 78-year-old female history of [id number] diabetes who presents with complaint nausea vomiting diarrhea, rectal bleeding abdominal pain. Patient was seen on the 5th as well as last night. Was diagnosed with diverticulitis. Was started on oral antibiotics but has had persistent nausea and vomiting been able to keep anything down. She denies any fevers. She states pain is present but overall controlled. She states she has tried taking oral Zofran without any improvement. She states she has been having diarrhea with every time she throws up. About hourly overnight. She describes large clots. She has not had any persistent here in the department. She denies any new back pain but does have chronic back issues. Patient states no lightheadedness, no chest pain or shortness of breath, no syncope. She has not on any anticoagulants. Reports allergies to metformin and codeine. Patient does not use any tobacco, no regular alcohol or recreational drugs. Dr. Patterson is her primary care physician. She is accompanied by her family. Additional information: 2 ED visits: 03/19, 03/[address] today negative for abscess. She adds that she is lost about 12 lb in the last week. She has had a lot of intermittent vomiting free of blood. This has been her primary complaint she has had a little bit of left lower quadrant pain. She has no history of diverticulitis. Her last colonoscopy was about 5 years ago. She was had some rectal bleeding today with red blood clots. She has no history of rectal bleeding or colitis. She denies any fevers. She has had her diabetes medications switched around a bit and dosages adjusted and initially thought her vomiting related more to her diabetic medications. Today she has minimal left lower quadrant pain and her nausea is better after being in the emergency department. She does feel somewhat dehydrated. Discharge Providers Provider Date of admission: 03/24/24 16:18 Discharge Date: 03/31/24 Primary care physician: Roni Patterson MD Consults: 03/30/24 15:46 Consult to Physical Therapy Evaluate & Treat Comment: Physician Instructions: Evaluate and Treat Discharge provider: Collin Mcintyre DO Summary Hospital Course Discharge Diagnosis: 1. Descending colon/sigmoid colitis versus diverticulitis Patient is slowly improving. She is now tolerating po solids. Completed 7 days of IV Zosyn. WBC now normal. 2. Hypokalemia Potassium repleted. 3. Critical aortic stenosis Echocardiogram has not been read, but it is reported to me that she was found to have critical aortic stenosis. She is planned to be [facility]. She has no congestive heart failure symptoms. Appears euvolemic. 4. Left breast mass Patient tells me he had a mass found recently and has been undergoing workup. Upon review, she had a mammogram performed in October of this year followed by a breast ultrasound. The recommendation was for follow-up in 6 months which will be due in May. 5. Diabetes mellitus type 2 She does note her blood sugars have been rather volatile lately. Her blood sugars have ranged from 116-198 in the past 24 hours. PCP to decide on what treatment options to use next as she did not tolerate metformin, rebelsus, or jardiance. Hospital Course: Admitted for NV and found to have colitis and leukocytosis. Placed on zosyn and her symptoms improved. Completed 7 days of IV abx and her leukocytosis resolved. On exam had very loud systolic murmur present, and echo showed new critical . She will f/up with cardiology in clinic for referral to Prov. She was discharged home to see PCP about treatment options for her diabetes. Exam Vital Signs (past 8 hours): - 03/31/24 08:00 Temperature 97.2 F L Pulse Rate 71 Respiratory Rate 16 Blood Pressure 151/64 H Pulse Oximetry 98 Oxygen Flow Rate 0 Oxygen Delivery Method Room Air Oxygen Flow Rate 0 Narrative Exam Narrative: GEN: Elderly female, Alert and oriented x 3, NAD HEENT:NC, Face symmetric CHEST: Respiratory excursions symmetric, CTAB CV: RRR, no R/G, grade 4/6 systolic murmur heard best at the left sternal border ABD: Soft, NT/ND, BT present in all 4 quadrants, no organomegaly or masses appreciated EXTR: warm, well perfused, no C/C/E SKIN: warm and dry, no rash NEURO: Alert and oriented x 3, nonfocal Objective Labs 03/30/24 05:39 03/31/24 05:58 Labs: Laboratory Results - last 24 hr 03/30/24 03/31/24 13:40 05:58 Sodium 140 139 Potassium 3.4 3.7 Chloride 105 108 H Carbon Dioxide 31 31 BUN 7 7 Creatinine 0.57 0.57 Estimated GFR > 60 > 60 BUN/Creatinine Ratio 12.3 12.3 Glucose 199 H 139 H Calcium 8.9 8.3 L Magnesium 2.0 PFSH Medical History Abnormal mammogram SVT (supraventricular tachycardia) Lumbar spinal stenosis Obesity (BMI 30.0-34.9) Endothelial corneal dystrophy, bilateral Personal history of colonic polyps Vasomotor rhinitis Rosacea, unspecified Chronic low back pain Generalized osteoarthrosis of multiple sites Mixed hyperlipidemia Essential hypertension Polyneuropathy in diseases classified elsewhere Type 2 diabetes mellitus with other specified complication Type 2 diabetes mellitus with diabetic neuropathy, unspecified Vitiligo (~1969) Rosacea (~1969) Mumps Measles Chicken pox Tinnitus (~2014) Hearing loss (~2014) History of urinary incontinence Irritable bowel syndrome Hemorrhoid (~1977) Colon polyps (~1994) Surgical History Anesthesia History of tonsillectomy (~1951) History of removal of cyst (~1994) History of cholecystectomy (~1987) History of cataract removal with insertion of prosthetic lens (~2020) Family History Father Cancer Hypertension Brother Diabetes mellitus Brother History of heart disease Sister Poor health Diabetes mellitus Grandfather Sinus disease Grandmother Diabetes mellitus Stroke Hypertension Grandfather Prostate cancer History of partial surgical removal of colon Grandmother Stroke Social History household members: spouse Smoking Status: Never smoker alcohol intake: never Discharge Plan Discharge Plan Patient Disposition: Home Discharge orders & Medications Prescriptions: Continued medroxyprogesterone 2.5 mg tablet 2.5 mg PO 3XW Qty: 36 3RF Rx Instructions: on Sunday, Sunday, Sunday lisinopril 10 mg tablet 10 mg PO DAILY Qty: 90 3RF ondansetron 4 mg tablet,disintegrating 4 mg PO Q6H PRN (Reason: nausea and vomiting) Qty: 10 0RF tramadol 50 mg tablet 50 - 100 mg PO DAILY PRN (Reason: pain) pravastatin 10 mg tablet 10 mg PO DAILY ipratropium bromide 42 mcg (0.06 %) spray,non-aerosol 2 spray intranasal TID PRN (Reason: Congestion) Discontinued Jardiance 25 mg tablet 25 mg PO DAILY Follow up/Referrals: Roni Patterson MD [Primary Care Provider] - 1 Week Visit Report/Discharge Packet Instructions: DI for Diverticulosis Stand Alone Forms: Patient Portal/API, Stroke Signs & Symptoms Discharge Data Primary Care Provider: Roni Patterson V Quality VTE Deep Vein Thrombosis/Pulmonary Embolism Present on Admission: No
== END 2024-03-31 13:25 | disposition home or self-care (01) | DRG 392 ==
LOC: ED 16:18 → AC 03-25 06:19
PROVIDERS: Internal Medicine; Student in an Organized Health Care Education/Training Program; Admitting Provider Hospitalist; Emergency Provider Emergency Medicine; PCP Internal Medicine; Visit Provider Hospitalist
DX: K52.9 Noninfective gastroenteritis and colitis, unspecified (principal); K57.32 Diverticulitis of large intestine without perforation or abscess without bleeding; R11.2 Nausea with vomiting, unspecified; I10 Essential (primary) hypertension; E78.5 Hyperlipidemia, unspecified; E11.9 Type 2 diabetes mellitus without complications; R01.1 Cardiac murmur, unspecified; E87.6 Hypokalemia; I35.0 Nonrheumatic aortic (valve) stenosis; N63.20 Unspecified lump in the left breast, unspecified quadrant; Z83.3 Family history of diabetes mellitus; Z82.49 Family history of ischemic heart disease and other diseases of the circulatory system
CPT/HCPCS: 36415; 74177; 80048; 80053; 81015; 82962; 83605; 83690; 83735; 84145; 85025; 85610; 87040; 87086; 87507; 93005; 93010; 93306; 96361; 96365; 96368; 96374; 96375; 99284; J0136; J0780; J1644; J1815; J2270; J2405; J2543; J2765; J3475; Q9967

== ENCOUNTER 2024-04-11 12:37 | Emergency (ER) | payer MEDICARE, BC, SELFPAY ==
[2024-03-31 14:26] VITALS: BMI 28.3
[2024-04-11] VITALS (8 sets, daily range): BP systolic 131–156; BP diastolic 59–108; PULSE 70–87; RESP 20; TEMP 37; O2SAT 95–100; BMI 28.6
[2024-04-11] MEDS: SODIUM CHLORIDE 0.9% 1,000 ML 1000 ML IV (14:03)
[2024-04-11 14:15] LABS: Add Manual Diff / Slide Review NO; Basophils Absolute Auto 100 /uL (0-100); Basophils Percent Auto 0.9 % (0-2); Eosinophils Absolute Auto 100 /uL (0-450); Eosinophils Percent Auto 1.8 % (2-4); Hematocrit 38.6 % (36-46); Hemoglobin 12.8 g/dL (12.0-16.0); Lymphocytes Absolute Auto 2700 /uL (1100-4500); Lymphocytes Percent Auto 37.7 % (25-40); Mean Corpuscular HGB Conc 33.2 % (30-36); Mean Corpuscular Hemoglobin 28.6 PG (26-34); Mean Corpuscular Volume 86.1 fL (80-100); Monocytes Absolute Auto 500 /uL (0-900); Neutrophils Absolute Auto 3800 /uL (1500-7000); Neutrophils Percent Auto 52.6 % (50-75); Platelet Count 224 X10^3/uL (150-400); Red Blood Cell Count 4.49 X10^6/uL (4.0-5.2); Red Cell Distribution Width 14.9 % (11.6-14.8); White Blood Cell Count 7.3 X10^3/uL (4.5-11.0)
[2024-04-11 14:23] LABS: Base Excess VBG 1.9 mmol/L (0-4); HCO3 VBG 28 mmol/L (24-28); PCO2 VBG 50.9 mmHg (45-50); PO2 VBG 21 mmHg (35-45); pH VBG 7.36 (7.33-7.43)
[2024-04-11 14:24] LABS: Fractionated Inspired Oxygen 21; Oxygen Saturation VBG 31 % (70-75); Total CO2 VBG 29 mmol/L (24-29)
[2024-04-11 14:25] LABS: Alanine Aminotransferase 21 IU/L (<35); Albumin Globulin Ratio 1.3 (1.0-2.8); Alkaline Phosphatase 72 U/L (38-126); Aspartate Aminotransferase 21 IU/L (14-36); BUN Creatinine Ratio 37.5 (6-22); Bilirubin Total 0.4 mg/dL (0.2-1.3); Blood Urea Nitrogen 21 mg/dL (7-17); Calcium 9.8 mg/dL (8.4-10.2); Carbon Dioxide 31 mmol/L (22-32); Chloride 104 mmol/L (98-107); Estimated Glomerular Filt Rate > 60 mL/min (>60); Globulin 3.2 g/dL (1.7-4.1); Glucose 305 mg/dL (80-110); HEMOLYSIS < 15 (0-50); Lipase 120 U/L (23-300); Potassium 3.8 mmol/L (3.4-5.1); Sodium 138 mmol/L (137-145); Total Protein 7.2 g/dL (6.3-8.2)
[2024-04-11 14:32] LABS: Ketones (Beta-Hydroxybutyrate) < 0.20 mmol/L (<0.27)
--- NOTE | 2024-04-11 14:46 | ED.GENADULT ---
HPI - General Adult <Eli Mclaughlin PA-C - Last Filed: 04/11/24 17:58> General Chief complaint: Diabetic Problem Stated complaint: High Blood Sugar sent by Dr Patterson Time Seen by Provider: 04/11/24 14:08 Source: patient Mode of arrival: Ambulatory History of Present Illness HPI narrative: This is a 78-year-old woman who presents to the ER sent by her PCP due to high blood sugars. Patient does have a history of diabetes type 2 and was recently admitted to this hospital for diverticulosis/diverticulitis with abdominal pain. Patient states that during her stay she was treated with insulin in the hospital and after leaving the hospital her PCP recommended that she stopped taking her previous antidiabetic medications and encouraged switching to insulin. Patient states that she had difficulty getting her medications and the supply she needed including needles in order to do her own insulin injections at home and as a result there was a delay in this starting and her blood sugars were increasing. Her blood sugar was a little over 300 today and this is why her primary care sent her to the emergency department for further evaluation and care. Patient states she has been feeling a little bit of ?brain fog? today and yesterday but denies any abdominal pain nausea vomiting or other symptoms. She has felt like she should be drinking more water but has not felt very thirsty in the last 24 hours she has had her 1st somewhat formed stools since she was in the hospital where she was having mostly entirely loose stools or diarrhea. Patient states she has concerns about using insulin at home as she has not had formal education on this yet she says ?I am a medical person I think I can figure this out but I have not had teaching on it?. She states that she did get a referral for this education but is not scheduled to get seen until May. She also notes that she was told she should be taking 5 of insulin however her prescription was written for 10 of insulin. She states all of the doctors that have talked to her and told her what she should be taking said she should have 5 not 10. Related Data Home Medications Medication Instructions Recorded Confirmed ipratropium bromide 42 mcg (0.06 2 spray intranasal TID PRN 03/24/24 04/07/24 %) nasal spray Congestion pravastatin 10 mg tablet 10 mg PO DAILY 03/24/24 04/07/24 tramadol 50 mg tablet 50 - 100 mg PO DAILY PRN pain 03/24/24 04/07/24 blood sugar diagnostic (Accu-Chek #10 ea 04/07/24 04/07/24 Marlyn Plus test strips) Previous Rx's Medication Instructions Recorded medroxyprogesterone 2.5 mg tablet 2.5 mg PO 3XW #36 tabs 04/04/23 lisinopril 10 mg tablet 10 mg PO DAILY #90 tabs 12/28/23 ondansetron 4 mg disintegrating 4 mg PO Q6H PRN nausea and 03/19/24 tablet vomiting #10 tabs insulin glargine-yfgn 100 unit/mL 10 unit (0.1 mL) SUBCUT DAILY #15 04/07/24 (3 mL) subcutaneous pen mL lancets #100 ea 04/10/24 pen needle, diabetic 31 gauge x #100 ea 04/10/2410/18 (Comfort EZ Pen [place]) Allergies Allergy/AdvReac Type Severity Reaction Status Date / Time metformin AdvReac Severe Diarrhea Verified 04/07/24 09:40 empagliflozin AdvReac Intermediate not Verified 04/07/24 09:58 [From Jardiance] effective semaglutide [From Rybelsus] AdvReac Intermediate abdominal Verified 04/07/24 09:58 cramps codeine AdvReac Mild VOMITING Verified 04/07/24 09:40 Review of Systems <Eli Mclaughlin PA-C - Last Filed: 04/11/24 17:58> Review of Systems Narrative: See HPI Patient History <Eli Mclaughlin PA-C - Last Filed: 04/11/24 17:58> Medical History Urinary incontinence Severe aortic stenosis Abnormal mammogram SVT (supraventricular tachycardia) Lumbar spinal stenosis Obesity (BMI 30.0-34.9) Endothelial corneal dystrophy, bilateral Personal history of colonic polyps Vasomotor rhinitis Rosacea, unspecified Chronic low back pain Generalized osteoarthrosis of multiple sites Mixed hyperlipidemia Essential hypertension Polyneuropathy in diseases classified elsewhere Type 2 diabetes mellitus with other specified complication Type 2 diabetes mellitus with diabetic neuropathy, unspecified Vitiligo (~1969) Rosacea (~1969) Mumps Measles Chicken pox Tinnitus (~2014) Hearing loss (~2014) History of urinary incontinence Irritable bowel syndrome Hemorrhoid (~1977) Colon polyps (~1994) Surgical History Anesthesia History of tonsillectomy (~1951) History of removal of cyst (~1994) History of cholecystectomy (~1987) History of cataract removal with insertion of prosthetic lens (~2020) Family History Father Cancer Hypertension Brother Diabetes mellitus Brother History of heart disease Sister Poor health Diabetes mellitus Grandfather Sinus disease Grandmother Diabetes mellitus Stroke Hypertension Grandfather Prostate cancer History of partial surgical removal of colon Grandmother Stroke Social History household members: spouse Smoking Status: Never smoker alcohol intake: never Smoking Status: Never smoker alcohol intake frequency: 0-2 drinks per day Substance Use Type: does not use Exam <Eli Mclaughlin PA-C - Last Filed: 04/11/24 17:58> Narrative Exam Narrative: GENERAL: [78] year old patient appears stated age. Well-developed patient, in mild distress. HEAD: Atraumatic. Normocephalic. EYES: Pupils equal round and reactive. Extraocular motions intact. No scleral icterus. No injection or drainage. ENT: Nose without bleeding, purulent drainage. Airway patent. NECK: Trachea midline. Non tender CARDIOVASCULAR: Regular rate and rhythm without murmurs, gallops, or rubs. RESPIRATORY: Clear to auscultation. Breath sounds equal bilaterally. No wheezes, rales, or rhonchi. GASTROINTESTINAL: Abdomen soft, non-tender, nondistended. EXTREMITIES: No edema or joint tenderness. BACK: Nontender without deformity or crepitance. No flank tenderness. NEURO: AOx3. SKIN: No rash or erythema of visible areas Initial Vital Signs Initial Vital Signs: Vital Signs Temperature 98.6 F 04/11/24 12:53 Pulse Rate 87 04/11/24 12:53 Respiratory Rate 20 04/11/24 12:53 Blood Pressure 131/59 L 04/11/24 12:53 Pulse Oximetry 99 04/11/24 12:53 Oxygen Delivery Method Room Air 04/11/24 12:53 <Rancho Willams DO - Last Filed: 04/11/24 18:09> Initial Vital Signs Initial Vital Signs: Vital Signs Temperature 98.6 F 04/11/24 12:53 Pulse Rate 87 04/11/24 12:53 Respiratory Rate 20 04/11/24 12:53 Blood Pressure 131/59 L 04/11/24 12:53 Pulse Oximetry 99 04/11/24 12:53 Oxygen Delivery Method Room Air 04/11/24 12:53 Course <Eli Mclaughlin PA-C - Last Filed: 04/11/24 17:58> Orders Ordered: ED Orders 04/11/24 13:57 Complete Blood Count AUTO DIFF Stat Comprehensive Metabolic Panel Stat Ketones (Beta-Hydroxybutyrate) Stat Lipase Stat VBG [Venous Blood Gas] Stat Discontinued Medications Sodium Chloride (Normal Saline 0.9%) 1,000 mls @ 1,000 mls/hr IV BOLUS ONE Stop: 04/11/24 14:21 Last Infusion: 04/11/24 16:06 Dose: Infused Documented By: Admin: 04/11/24 14:03 Dose: 1,000 mls/hr Documented By: BETINA Sodium Chloride (Normal Saline 0.9%) 1,000 mls @ 500 mls/hr IV BOLUS ONE Stop: 04/11/24 16:45 Last Admin: 04/11/24 16:05 Dose: Not Given Documented By: ANNIE Sodium Chloride (Normal Saline 0.9%) 1,000 mls @ 500 mls/hr IV BOLUS ONE Stop: 04/11/24 17:18 Last Admin: 04/11/24 16:05 Dose: Not Given Documented By: ANNIE Insulin Glargine (Insulin Glargine 100 Unit/Ml 3ml Pen) 5 unit SUBCUT NOW ONE Stop: 04/11/24 16:02 Last Admin: 04/11/24 16:27 Dose: 5 unit Documented By: ANNIE Co-signed By: CINTHYA Vital Signs Vital signs: Vital Signs - 8 hr 04/11/24 12:53 04/11/24 14:28 04/11/24 14:28 Temperature 98.6 F Pulse Rate 87 70 Respiratory Rate 20 Blood Pressure 131/59 L 156/108 H Pulse Oximetry 99 98 Oxygen Delivery Method Room Air 04/11/24 14:30 04/11/24 14:30 04/11/24 15:00 Temperature Pulse Rate 70 Respiratory Rate Blood Pressure 145/72 H 151/72 H Pulse Oximetry 100 Oxygen Delivery Method 04/11/24 15:00 04/11/24 15:42 04/11/24 15:42 Temperature Pulse Rate 71 72 Respiratory Rate Blood Pressure 153/70 H Pulse Oximetry 98 99 Oxygen Delivery Method 04/11/24 16:00 04/11/24 16:30 04/11/24 17:09 Temperature Pulse Rate 71 74 Respiratory Rate Blood Pressure 146/70 H Pulse Oximetry 99 95 Oxygen Delivery Method <Rancho Willams, - Last Filed: 04/11/24 18:09> Orders Ordered: ED Orders 04/11/24 13:57 Complete Blood Count AUTO DIFF Stat Comprehensive Metabolic Panel Stat Ketones (Beta-Hydroxybutyrate) Stat Lipase Stat VBG [Venous Blood Gas] Stat Discontinued Medications Sodium Chloride (Normal Saline 0.9%) 1,000 mls @ 1,000 mls/hr IV BOLUS ONE Stop: 04/11/24 14:21 Last Infusion: 04/11/24 16:06 Dose: Infused Documented By: Admin: 04/11/24 14:03 Dose: 1,000 mls/hr Documented By: BETINA Sodium Chloride (Normal Saline 0.9%) 1,000 mls @ 500 mls/hr IV BOLUS ONE Stop: 04/11/24 16:45 Last Admin: 04/11/24 16:05 Dose: Not Given Documented By: ANNIE Sodium Chloride (Normal Saline 0.9%) 1,000 mls @ 500 mls/hr IV BOLUS ONE Stop: 04/11/24 17:18 Last Admin: 04/11/24 16:05 Dose: Not Given Documented By: ANNIE Insulin Glargine (Insulin Glargine 100 Unit/Ml 3ml Pen) 5 unit SUBCUT NOW ONE Stop: 04/11/24 16:02 Last Admin: 04/11/24 16:27 Dose: 5 unit Documented By: ANNIE Co-signed By: CINTHYA Vital Signs Vital signs: Vital Signs - 8 hr 04/11/24 12:53 04/11/24 14:28 04/11/24 14:28 Temperature 98.6 F Pulse Rate 87 70 Respiratory Rate 20 Blood Pressure 131/59 L 156/108 H Pulse Oximetry 99 98 Oxygen Delivery Method Room Air 04/11/24 14:30 04/11/24 14:30 04/11/24 15:00 Temperature Pulse Rate 70 Respiratory Rate Blood Pressure 145/72 H 151/72 H Pulse Oximetry 100 Oxygen Delivery Method 04/11/24 15:00 04/11/24 15:42 04/11/24 15:42 Temperature Pulse Rate 71 72 Respiratory Rate Blood Pressure 153/70 H Pulse Oximetry 98 99 Oxygen Delivery Method 04/11/24 16:00 04/11/24 16:30 04/11/24 17:09 Temperature Pulse Rate 71 74 Respiratory Rate Blood Pressure 146/70 H Pulse Oximetry 99 95 Oxygen Delivery Method Medical Decision Making <Eli Mclaughlin PA-C - Last Filed: 04/11/24 17:58> Differential Diagnosis Differential Diagnosis: Diabetic hyperglycemia, patient education Medical Records Medical records reviewed: Yes I reviewed the patient's medical records. Lab Data Lab results reviewed: Yes I reviewed the patient's lab results. 04/11/24 13:57 04/11/24 13:57 Labs: Lab Results 04/11/24 Range/Units 13:57 WBC 7.3 (4.5-11.0) X10^3/uL RBC 4.49 (4.0-5.2) X10^6/uL Hgb 12.8 (12.0-16.0) g/dL Hct 38.6 (36-46) % MCV 86.1 (80-100) fL MCH 28.6 (26-34) PG MCHC 33.2 (30-36) % RDW 14.9 H (11.6-14.8) % Plt Count 224 (150-400) X10^3/uL Neut % (Auto) 52.6 (50-75) % Lymph % (Auto) 37.7 (25-40) % Ramsey % (Auto) 7.0 (3-14) % Eos % (Auto) 1.8 L (2-4) % Baso % (Auto) 0.9 (0-2) % Neut # (Auto) 3800 (3408-6284) /uL Lymph # (Auto) 2700 (0100-3816) /uL Ramsey # (Auto) 500 (0-900) /uL Eos # (Auto) 100 (0-450) /uL Baso # (Auto) 100 (0-100) /uL VBG pH 7.36 (7.33-7.43) VBG pCO2 50.9 H (45-50) mmHg VBG pO2 21 L (35-45) mmHg VBG HCO3 28 (24-28) mmol/L VBG Total CO2 29 (24-29) mmol/L VBG O2 Saturation 31 L (70-75) % VBG Base Excess 1.9 (0-4) mmol/L FiO2 21 Sodium 138 (137-145) mmol/L Potassium 3.8 (3.4-5.1) mmol/L Chloride 104 (98-107) mmol/L Carbon Dioxide 31 (22-32) mmol/L BUN 21 H (7-17) mg/dL Creatinine 0.56 (0.52-1.04) mg/dL Estimated GFR > 60 (>60) mL/min BUN/Creatinine Ratio 37.5 H (6-22) Glucose 305 H (80-110) mg/dL Calcium 9.8 (8.4-10.2) mg/dL Total Bilirubin 0.4 (0.2-1.3) mg/dL AST 21 (14-36) IU/L ALT 21 (<35) IU/L Alkaline Phosphatase 72 (38-126) U/L Total Protein 7.2 (6.3-8.2) g/dL Albumin 4.0 (3.5-5.0) g/dL Globulin 3.2 (1.7-4.1) g/dL Albumin/Globulin Ratio 1.3 (1.0-2.8) Lipase 120 (23-300) U/L Ketones < 0.20 (<0.27) mmol/L Point of Care Testing Glucose POC 270 Urine Dip Bedside Urine Glucose 1000 mg/dl Bedside Urine Bilirubin - Negative Bedside Urine Ketone - Negative Urine Specific [place] 1.015 Bedside Urine Occult Blood - Negative Bedside Urine pH 5.5 Bedside Urine Protein - Negative Bedside Urine Urobilinogen - Negative Bedside Urine Nitrite - Negative Bedside Urine Leukocytes - Negative Esterase Point of care testing: Point of Care Testing Glucose POC 270 Urine Dip Bedside Urine Glucose 1000 mg/dl Bedside Urine Bilirubin - Negative Bedside Urine Ketone - Negative Urine Specific [place] 1.015 Bedside Urine Occult Blood - Negative Bedside Urine pH 5.5 Bedside Urine Protein - Negative Bedside Urine Urobilinogen - Negative Bedside Urine Nitrite - Negative Bedside Urine Leukocytes - Negative Esterase MDM Narrative Medical decision making narrative: This is a well-appearing 78-year-old woman with a history of type 2 diabetes who has recently been told to transition to insulin instead of other previous diabetes medications that had not been effective for her in the setting of recent hospitalization for diverticulitis. Patient had difficulty obtaining supplies and had a delay in starting her insulin regimen also states she had not had formal teaching on this and was not necessarily comfortable administering the medication at home by herself. Patient's blood sugar today was 305 initially and she was given fluids here in the emergency department and 5 units of insulin glargine towards the end of her ED stay. Discussed options with the patient and did reach out to the diabetic director of education and training here at the hospital and left a message for them. Patient does state she feels comfortable taking the medication herself and has a pen that she can now down to 5 units rather than the 10 that it was prescribed for. She is quite confident that she is supposed to be taking 5 units per the providers that she has talked to thus far. Patient does receive education from RN in the emergency department regarding administering this medication for self, when she has given a dose of 5 units here in this ER. is also in the room for teaching. Patient states she has all the equipment she needs to administer medication at home and is comfortable doing so moving forward will follow up closely with PCP. She did have labs obtained today to evaluate for signs of ketoacidosis and these are not present. She did receive fluids 1 L in the ER during her stay. Return precautions provided, follow-up plan discussed, all questions answered. <Rancho Willams, - Last Filed: 04/11/24 18:09> Lab Data Labs: Lab Results 04/11/24 Range/Units 13:57 WBC 7.3 (4.5-11.0) X10^3/uL RBC 4.49 (4.0-5.2) X10^6/uL Hgb 12.8 (12.0-16.0) g/dL Hct 38.6 (36-46) % MCV 86.1 (80-100) fL MCH 28.6 (26-34) PG MCHC 33.2 (30-36) % RDW 14.9 H (11.6-14.8) % Plt Count 224 (150-400) X10^3/uL Neut % (Auto) 52.6 (50-75) % Lymph % (Auto) 37.7 (25-40) % Ramsey % (Auto) 7.0 (3-14) % Eos % (Auto) 1.8 L (2-4) % Baso % (Auto) 0.9 (0-2) % Neut # (Auto) 3800 (6400-0539) /uL Lymph # (Auto) 2700 (2919-1140) /uL Ramsey # (Auto) 500 (0-900) /uL Eos # (Auto) 100 (0-450) /uL Baso # (Auto) 100 (0-100) /uL VBG pH 7.36 (7.33-7.43) VBG pCO2 50.9 H (45-50) mmHg VBG pO2 21 L (35-45) mmHg VBG HCO3 28 (24-28) mmol/L VBG Total CO2 29 (24-29) mmol/L VBG O2 Saturation 31 L (70-75) % VBG Base Excess 1.9 (0-4) mmol/L FiO2 21 Sodium 138 (137-145) mmol/L Potassium 3.8 (3.4-5.1) mmol/L Chloride 104 (98-107) mmol/L Carbon Dioxide 31 (22-32) mmol/L BUN 21 H (7-17) mg/dL Creatinine 0.56 (0.52-1.04) mg/dL Estimated GFR > 60 (>60) mL/min BUN/Creatinine Ratio 37.5 H (6-22) Glucose 305 H (80-110) mg/dL Calcium 9.8 (8.4-10.2) mg/dL Total Bilirubin 0.4 (0.2-1.3) mg/dL AST 21 (14-36) IU/L ALT 21 (<35) IU/L Alkaline Phosphatase 72 (38-126) U/L Total Protein 7.2 (6.3-8.2) g/dL Albumin 4.0 (3.5-5.0) g/dL Globulin 3.2 (1.7-4.1) g/dL Albumin/Globulin Ratio 1.3 (1.0-2.8) Lipase 120 (23-300) U/L Ketones < 0.20 (<0.27) mmol/L Point of Care Testing Glucose POC 270 Urine Dip Bedside Urine Glucose 1000 mg/dl Bedside Urine Bilirubin - Negative Bedside Urine Ketone - Negative Urine Specific [place] 1.015 Bedside Urine Occult Blood - Negative Bedside Urine pH 5.5 Bedside Urine Protein - Negative Bedside Urine Urobilinogen - Negative Bedside Urine Nitrite - Negative Bedside Urine Leukocytes - Negative Esterase Point of care testing: Point of Care Testing Glucose POC 270 Urine Dip Bedside Urine Glucose 1000 mg/dl Bedside Urine Bilirubin - Negative Bedside Urine Ketone - Negative Urine Specific [place] 1.015 Bedside Urine Occult Blood - Negative Bedside Urine pH 5.5 Bedside Urine Protein - Negative Bedside Urine Urobilinogen - Negative Bedside Urine Nitrite - Negative Bedside Urine Leukocytes - Negative Esterase Discharge Plan Departure Patient Disposition: Home Clinical Impression: Hyperglycemia due to diabetes mellitus Type 2 diabetes mellitus with other specified complication Qualifiers: Diabetes mellitus halfway insulin use: without halfway use Qualified Code(s): E11.69 - Type 2 diabetes mellitus with other specified complication Instructions: How to Use an Insulin Pen, Insulin Glargine (rDNA origin) Injection Activity Restrictions/Additional Instructions: *You have been diagnosed with [hyperglycemia due to type 2 diabetes] *What to do: *Please continue to take your regular medications as directed. [ ] New medication prescriptions sent to your pharmacy: [ ] [ ] New medication written as a paper prescription [X ] No new medications given *Please follow up with your primary care provider in 2-3 days, call for an appointment. Let them know you were seen in the Emergency Department and that we ask that you be seen in follow up. We will electronically transmit a record of today's note if your PCP is in our system. Thank you for coming into the emergency department today. You were sent here by her primary care provider due to concern for high blood sugars. I understand your transitioning to using insulin and have only recently obtained all of the equipment and supplies in medication that you need an order to administer her insulin at home. Your blood sugar was little over 300 when you came in today and you did have some symptoms of brain fog but otherwise did not have other concerning symptoms related to high blood sugars, we did assess some labs today to evaluate for ketoacidosis and these looked okay. We also gave you some fluids through an IV which will help to lower your blood sugar some, and a dose of insulin glargine 5 units today in the ER as well as some teaching associated with administering this. I would encourage you to reach back out to the certified adaptive physical educator that UR supposed to be seeing in May and see if it is possible to get in sooner for a visit since insulin as a new medication for you, I have included some educational packets regarding use of insulin pen here for you today. Please continue to check your blood sugars as recommended by your PCP; if you feel your blood sugars are not starting to be controlled over the next few days or if they are continuing to rise please make sure you seek re-evaluation. I would encourage you to drink plenty of fluids even if you are not feeling thirsty as this will also help to bring her blood sugar down. *If you do not have a primary care provider please contact the [facility] Resource line at [phone]. They will ask some questions about your medical history and help get you set up with a doctor in the community. *Return to Emergency Department if you should have any new, worsening or concerning symptoms, such as [fever greater than 101 F, shaking chills, worsening pain, persistent vomiting or other bothersome symptoms] Prescriptions: No Action medroxyprogesterone 2.5 mg tablet 2.5 mg PO 3XW Qty: 36 3RF Rx Instructions: on Sunday, Sunday, Sunday lisinopril 10 mg tablet 10 mg PO DAILY Qty: 90 3RF (DME) lancets Misc See Rx Instructions .Route Qty: 100 2RF Rx Instructions: As directed to check blood sugar daily (DME) pen needle, diabetic [Comfort EZ Pen [place]] 31 gauge x 1/4 needle See Rx Instructions .Route Qty: 100 2RF Rx Instructions: As directed to give insulin injection daily (DME) Accu-Chek Marlyn Plus test strp Strip See Rx Instructions .ROUTE DAILY Qty: 10 Rx Instructions: As directed to check blood sugar daily insulin glargine-yfgn 100 unit/mL (3 mL) insulin pen 10 unit SUBCUT DAILY Qty: 15 5RF ondansetron 4 mg tablet,disintegrating 4 mg PO Q6H PRN (Reason: nausea and vomiting) Qty: 10 0RF tramadol 50 mg tablet 50 - 100 mg PO DAILY PRN (Reason: pain) pravastatin 10 mg tablet 10 mg PO DAILY ipratropium bromide 42 mcg (0.06 %) spray,non-aerosol 2 spray intranasal TID PRN (Reason: Congestion) Referrals: Roni Patterson MD [Primary Care Provider] - Stand Alone Forms: Patient Portal/API ED Sign-out <Rancho Willams DO - Last Filed: 04/11/24 18:09> Cosign ED Attending Cosignature Attestation: Dr Willams Co-Sign Statement: I was available for consultation during this patient's emergency department visit. This chart is signed by myself for administrative purposes only. I did not have direct contact with this patient during this visit. They were seen independently by the APC.
[2024-04-11] MEDS: INSULIN GLARGINE 100 UNIT/ML 3ML PEN SUBCUT (16:27)
== END 2024-04-11 17:14 | disposition home or self-care (01) ==
PROVIDERS: Emergency Medicine; Emergency Provider Student in an Organized Health Care Education/Training Program; PCP Internal Medicine
DX: E11.65 Type 2 diabetes mellitus with hyperglycemia (principal); Z79.4 Long term (current) use of insulin
CPT/HCPCS: 36415; 80053; 81003; 82009; 82805; 82962; 83690; 85025; 96372; 99284

== ENCOUNTER → 2024-05-13 11:09 | Outpatient (CLI) | payer MEDICARE, BC, SELFPAY ==
[2024-03-31 14:26] VITALS: BMI 28.3
[2024-05-13 11:44] LABS: Hematocrit 38.6 % (36-46); Mean Corpuscular HGB Conc 33.7 % (30-36); Mean Corpuscular Hemoglobin 29.2 PG (26-34); Mean Corpuscular Volume 86.7 fL (80-100); Platelet Count 218 X10^3/uL (150-400); Red Blood Cell Count 4.46 X10^6/uL (4.0-5.2); Red Cell Distribution Width 15.8 % (11.6-14.8); White Blood Cell Count 7.1 X10^3/uL (4.5-11.0)
[2024-05-13 11:56] LABS: Prothrombin Time 11.8 SECONDS (9.4-12.5)
[2024-05-13 12:28] LABS: Blood Urea Nitrogen 12 mg/dL (7-17); Calcium 9.5 mg/dL (8.4-10.2); Carbon Dioxide 29 mmol/L (22-32); Chloride 102 mmol/L (98-107); Estimated Glomerular Filt Rate > 60 mL/min (>60); Glucose 223 mg/dL (80-110); HEMOLYSIS < 15 (0-50); Sodium 138 mmol/L (137-145)
[2024-05-13 12:29] LABS: Blood Urea Nitrogen 12 mg/dL (7-17); Calcium 9.5 mg/dL (8.4-10.2); Carbon Dioxide 30 mmol/L (22-32); Chloride 102 mmol/L (98-107); Estimated Glomerular Filt Rate > 60 mL/min (>60); Glucose 222 mg/dL (80-110); HEMOLYSIS < 15 (0-50); Sodium 139 mmol/L (137-145)
[2024-05-13 14:45] LABS: Hemoglobin A1C% w Est Avg Glu 8.7 % (4.0-6.0)
== END ==
LOC: LAB 11:11
PROVIDERS: PCP Internal Medicine; Referring Provider Internal Medicine; Visit Provider Internal Medicine
DX: E11.69 Type 2 diabetes mellitus with other specified complication (principal); I35.0 Nonrheumatic aortic (valve) stenosis
CPT/HCPCS: 36415; 80048; 83036; 85027; 85610

== ENCOUNTER → 2024-05-20 13:20 | Outpatient (CLI) | payer MEDICARE, BC, SELFPAY ==
[2024-03-31 14:26] VITALS: BMI 28.3
--- NOTE | 2024-05-20 13:21 | DI.MG.S_ITS ---
UNILATERAL LEFT DIGITAL DIAGNOSTIC MAMMOGRAM 3D/2D: 05/20/2024 CLINICAL: Short term follow up. Comparison is made to exams dated: 11/20/2023 mammogram, 10/30/2023 mammogram, and 10/25/2022 mammogram - [facility]. There are scattered areas of fibroglandular density in the left breast (category b / 25%-50% glandular tissue). There is a 0.4 cm focal asymmetry in the lower outer quadrant at 5 o'clock middle depth, which has mildly decreased in size and previously measuring 0.5 cm (remeasured). There are new 0.1 cm grouped punctate calcifications associated with the focal asymmetry. No prior ultrasound correlate identified for the focal asymmetry. No other significant masses or calcifications are seen in the breast. IMPRESSION: PROBABLY BENIGN Left breast 0.4 cm focal asymmetry with associated 0.1 cm punctate calcifications, mildly decreased in size since October 2023. 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 Recommend follow-up mammogram in 6 months to demonstrate 1 year stability. Patient will be due for bilateral mammogram at that time. Findings and recommendations were conveyed to the patient during today's evaluation. Based on the Tyrer Cuzick model (a risk assessment model) the patient's lifetime risk is 2.4% and her 10 year risk is 0.0%. According to the ACR, ACS, and NCCN guidelines, an annual breast MRI exam along with mammogram is recommended if the patient's lifetime risk is 20% or greater. This exam was interpreted at Station ID: [id number]. NOTE: For mammograms, a report in lay terms will be sent to the patient. Approximately 15% of breast malignancies will not be visualized mammographically. In the management of a palpable breast mass, a negative mammogram must not discourage biopsy of a clinically suspicious lesion. Electronically Signed By: Codie Wall M.D., Ph.D. eb/:05/20/2024 16:10:00 Entry: - 05/21/2024 13:47:38 letter sent: Followup Recommended ACR BI-RADS Category 3: Probably benign [id number]
== END ==
LOC: MAMMO 13:21
PROVIDERS: PCP Internal Medicine; Referring Provider Internal Medicine; Visit Provider Internal Medicine
DX: R92.8 Other abnormal and inconclusive findings on diagnostic imaging of breast (principal); R92.1 Mammographic calcification found on diagnostic imaging of breast; N64.89 Other specified disorders of breast; R92.322 Mammographic fibroglandular density, left breast
CPT/HCPCS: 77065; G0279

== ENCOUNTER → 2024-06-06 14:40 | Outpatient (CLI) | payer MEDICARE, BC, SELFPAY ==
[2024-05-22 15:15] VITALS: BMI 28.3
--- NOTE | 2024-07-31 08:10 | DIAB.MNT ---
Initial Diabetes Medical Nutrition Therapy Assessment Name: Maricruz Garcia I (Sofi) Date: 06/06/24 Time: 3-430p Dx: Type II Diabetes Provider: Yesenia Preferred Learning Style: Hands on Sofi presents for initial DM visit. Reports DM diagnosis in 2013. Endorses one visit of DSME at that time in . States she had been on Metformin for a long time, caused diarrhea. Also endorses trial of Rybelsus but had cramps and constipation. Endorses Jardiance trial but seemed to have little impact on BG, no SE though. February of 2024 had both Rybelsus and Jardiance and had severe emesis and d/c'd those meds. Eventually, ended up with insulin therapy in March. has questions regarding nutrition and injection technique. Interested in CGM. Reports needing a heart valve replacement Diet Recall: 8a: yogurt with <1/4c bran buds OR egg with 1 hashbrown 12p: jello pudding sf, maybe half sandwich sn: 1oz chips or popcorn 4p: protein 4-6 oz, small salad sometimes rice or potatoes 1/3-1/2c sn: nothing or low CHO ice cream or low fat cottage cheese with apple sauce Diet root beer water latte crystal light Anthropometrics: Ht: 64 Wt: 172# 05/2024 Physical Activity: No program currently Self-Monitoring Blood Glucose: Checking FBG and HS. 12/19 elevated FBG. All HS readings elevated over 200mg/dl. Date Pre Post Pre Post Pre Post HS 05/31 159 290 06/01 128 319 06/02 164 296 06/03 114 220 06/04 122 217 06/05 115 325 06/06 163 Diabetes Medications: 5u Glargine AM 10u Glargine HS Pertinent Labs: HgA1c: 8.7% 04/2024 Past Medical History: (Last Reviewed 05/22/24 @ 13:20 by Roni Patterson MD) Abnormal mammogram Chicken pox Childhood Chronic low back pain Colon polyps (~1994) Endothelial corneal dystrophy, bilateral Essential hypertension Generalized osteoarthrosis of multiple sites Hearing loss (~2014) Hemorrhoid (~1977) History of urinary incontinence Irritable bowel syndrome Lumbar spinal stenosis Measles Childhood Mixed hyperlipidemia Mumps Childhood Obesity (BMI 30.0-34.9) Personal history of colonic polyps Polyneuropathy in diseases classified elsewhere Rosacea (~1969) Rosacea, unspecified Severe aortic stenosis SVT (supraventricular tachycardia) Tinnitus (~2014) Type 2 diabetes mellitus with diabetic neuropathy, unspecified Type 2 diabetes mellitus with other specified complication Urinary incontinence Vasomotor rhinitis Vitiligo (~1969) Nutrition Rx: Carbohydrates: Meal:30-45g Snack:15-30g Nutrition Diagnosis: - Nutrition and food related knowledge deficit r/t limited MNT/DSME aeb pt report Intervention: This participant was very receptive. Provided appropriate educational handouts. Discussed the following topics: Completed intake assessment. Discussed barriers to care. CGM Sample Reviewed CGM use and equipment Discussed when to check blood sugars using finger stick Reviewed high and low blood sugar signs/symptoms and treatment options Provided education for self-administration of CGM placement Educated patient on alarm settings Discussed how to remove and dispose of equipment Plate Method, impact of macronutrients on blood sugar, meal timing, carbohydrate counting, pairing macronutrients and spreading out carbohydrates for better blood glucose management Recommended servings for carbohydrates at meals and snacks Heart health nutrition Brainstormed appropriate meal/snack ideas based on food preferences Review of injection technique and locations Created SMART goals for patient self-care and success. Goals: Wear CGM x 10 days Pair CHO and protein at meals and snacks Check labels for net CHO Follow-up: JENNIFER JIANG follow-up in 2-3 weeks Fadumo Pope RDN, APOLINAR Certified Diabetes Care and Power Press Operator P: [phone] Thank you for this referral
== END ==
PROVIDERS: PCP Internal Medicine; Referring Provider Internal Medicine
DX: E11.9 Type 2 diabetes mellitus without complications (principal); Z71.3 Dietary counseling and surveillance; Z68.28 Body mass index [BMI] 28.0-28.9, adult
CPT/HCPCS: 97802

== ENCOUNTER → 2024-06-24 12:45 | Outpatient (CLI) | payer MEDICARE, BC, SELFPAY ==
[2024-05-22 15:15] VITALS: BMI 28.3
--- NOTE | 2024-07-31 08:22 | DIAB.FU ---
Follow-up Diabetes Education Assessment Name: Maricruz Garcia I (Sofi) Date: 06/24/2024 Time: 1-205p Dx: Type II Diabetes Sofi presents for follow-up DM visit. Since wearing CGM states she has noticed some FBG were more elevated the last few days, though seems consistent with last visit values. Continues to have elevations in the 200s at bedtime. States she has had increased stress recently due to finding out she will need a pacemaker. Has noticed increased hunger since d/c of Rybelsus. Some elevations in the evenings seem to be r/t eating dinner and then a snack with CHO shortly after. This resulted in peak BG at 8-9p. May benefit from mealtime insulin considering most peaks are happening after meals later in the day. Anthropometrics: Ht: 64 Wt: 172# 05/2024 Physical Activity: No program currently. Leg pain barrier reported, spinal stenosis. Self-Monitoring Blood Glucose: Recent FBG since CGM sample ended: 111, 119, 142, 144. Time in range at goal of 70%. Over goal of 25% or less in high 180-250mg/dl range. Most hyperglycemia accounted for in the afternoon and evening. Today TIR: 1% very high 28% high 70% in range 1% low <1% very low Avmg/dl GMI: NA std dev: 47mg/dl variation: 31.3% Last visit: Date Pre Post Pre Post Pre Post HS 05/31 159 290 06/01 128 319 06/02 164 296 06/03 114 220 06/04 122 217 06/05 115 325 06/06 163 Diabetes Medications: 5u Glargine AM 10u Glargine HS Pertinent Labs: HgA1c: 8.7% 04/2024 Past Medical History: (Last Reviewed 05/22/24 @ 13:20 by Roni Patterson MD) Abnormal mammogram Chicken pox Childhood Chronic low back pain Colon polyps (~1994) Endothelial corneal dystrophy, bilateral Essential hypertension Generalized osteoarthrosis of multiple sites Hearing loss (~2014) Hemorrhoid (~1977) History of urinary incontinence Irritable bowel syndrome Lumbar spinal stenosis Measles Childhood Mixed hyperlipidemia Mumps Childhood Obesity (BMI 30.0-34.9) Personal history of colonic polyps Polyneuropathy in diseases classified elsewhere Rosacea (~1969) Rosacea, unspecified Severe aortic stenosis SVT (supraventricular tachycardia) Tinnitus (~2014) Type 2 diabetes mellitus with diabetic neuropathy, unspecified Type 2 diabetes mellitus with other specified complication Urinary incontinence Vasomotor rhinitis Vitiligo (~1969) Intervention: This participant was very receptive. Provided appropriate educational handouts. Discussed the following topics: BG review and trends checking HS until CGM approved Steps for personal CGM acquisition meal timing and moving evening eating apart Stress impact on BG Review of CHO portions Created SMART goals for patient self-care and success. Goals: Wear CGM x 10 days- met Pair CHO and protein at meals and snacks- met Check labels for net CHO- met Check HS BG- new Move HS snack 3-4 hr post dinner- new Follow-up: JENNIFER JIANG follow-up in 2-3 weeks Fadumo Pope RDN, APOLINAR Certified Diabetes Care and Nonfarm Animal Caretaker P: [phone] Thank you for this referral
== END ==
PROVIDERS: PCP Internal Medicine; Referring Provider Internal Medicine
DX: E11.9 Type 2 diabetes mellitus without complications (principal); Z71.3 Dietary counseling and surveillance; Z68.28 Body mass index [BMI] 28.0-28.9, adult; Z79.4 Long term (current) use of insulin
CPT/HCPCS: G0108

== ENCOUNTER → 2024-07-01 11:07 | Outpatient (CLI) | payer MEDICARE, BC, SELFPAY ==
[2024-05-22 15:15] VITALS: BMI 28.3
[2024-07-01 14:33] LABS: BUN Creatinine Ratio 37.3 (6-22); Blood Urea Nitrogen 25 mg/dL (7-17); Calcium 9.7 mg/dL (8.4-10.2); Carbon Dioxide 32 mmol/L (22-32); Chloride 102 mmol/L (98-107); Estimated Glomerular Filt Rate > 60 mL/min (>60); Glucose 246 mg/dL (80-110); HEMOLYSIS 30 (0-50); Potassium 4.9 mmol/L (3.4-5.1); Sodium 139 mmol/L (137-145)
== END ==
PROVIDERS: PCP Internal Medicine
DX: E11.9 Type 2 diabetes mellitus without complications (principal); Z79.4 Long term (current) use of insulin
CPT/HCPCS: 36415; 80048

== ENCOUNTER → 2024-07-23 13:49 | Outpatient (CLI) | payer MEDICARE, BC, SELFPAY ==
[2024-05-22 15:15] VITALS: BMI 28.3
--- NOTE | 2024-07-31 08:48 | DIAB.FU ---
Follow-up Diabetes Education: Personal CGM Placement Name: Maricruz Garcia I (Sofi) Date: 07/23/24 Time: 215-3p Dx: Type II Diabetes Sofi presents for follow-up DM visit with her personal CGM for placement. States she feels overwhelmed by seeing 4 food service hotel runner. States she will know more at the end of the week. Had a mass on CT scan, which is causing stress. States she feels she has tweaked her diet as much as she can and is still experiencing elevated evening readings. Is open to mealtime insulin or Jardiance prn. Self-Monitoring Blood Glucose: Checking FBG and HS. HS readings continue in the 200-300 range. Last Visit TIR: 1% very high 28% high 70% in range 1% low <1% very low Avmg/dl GMI: NA std dev: 47mg/dl variation: 31.3% Diabetes Medications: 5u Glargine AM 10u Glargine HS Pertinent Labs: HgA1c: 8.7% 04/2024 Past Medical History: (Last Reviewed 05/22/24 @ 13:20 by Roni Patterson MD) Abnormal mammogram Chicken pox Childhood Chronic low back pain Colon polyps (~1994) Endothelial corneal dystrophy, bilateral Essential hypertension Generalized osteoarthrosis of multiple sites Hearing loss (~2014) Hemorrhoid (~1977) History of urinary incontinence Irritable bowel syndrome Lumbar spinal stenosis Measles Childhood Mixed hyperlipidemia Mumps Childhood Obesity (BMI 30.0-34.9) Personal history of colonic polyps Polyneuropathy in diseases classified elsewhere Rosacea (~1969) Rosacea, unspecified Severe aortic stenosis SVT (supraventricular tachycardia) Tinnitus (~2014) Type 2 diabetes mellitus with diabetic neuropathy, unspecified Type 2 diabetes mellitus with other specified complication Urinary incontinence Vasomotor rhinitis Vitiligo (~1969) Intervention: This participant was very receptive. Provided appropriate educational handouts. Discussed the following topics: Recent blood sugar results and trends Medication management Review of general nutrition recommendations and current intake Reviewed CGM use and equipment Discussed when to check blood sugars using finger stick Reviewed high and low blood sugar signs/symptoms and treatment options Provided education for self-administration of CGM placement Educated patient on alarm settings Discussed when to replace equipment and disposal Created SMART goals for patient self-care and success. Goals: Check HS BG- met Move HS snack 3-4 hr post dinner- in progress Follow-up: JENNIFER JIANG follow-up in 3-4 weeks. She is requesting RD message PCP on medication options. Unclear if additional DM medication is appropriate or not. Her time in range has been in goal, however does exhibit consistently elevated BG in the evening despite diet changes. Fadumo Pope RDN, APOLINAR Certified Diabetes Care and Independent Crop Consultant P: [phone] Thank you for this referral
== END ==
PROVIDERS: PCP Internal Medicine; Referring Provider Internal Medicine
DX: E11.40 Type 2 diabetes mellitus with diabetic neuropathy, unspecified (principal); E11.69 Type 2 diabetes mellitus with other specified complication; Z71.3 Dietary counseling and surveillance; Z79.4 Long term (current) use of insulin
CPT/HCPCS: 95249

== ENCOUNTER → 2024-08-15 10:23 | Outpatient (CLI) | payer MEDICARE, BC, SELFPAY ==
[2024-05-22 15:15] VITALS: BMI 28.3
[2024-08-15 12:00] LABS: Creatinine Urine Random 64.72 mg/dL
[2024-08-15 12:03] LABS: Aspartate Aminotransferase 21 IU/L (14-36); BUN Creatinine Ratio 31.1 (6-22); Blood Urea Nitrogen 19 mg/dL (7-17); Calcium 9.9 mg/dL (8.4-10.2); Carbon Dioxide 29 mmol/L (22-32); Chloride 103 mmol/L (98-107); Cholesterol 143 mg/dL (140-199); Estimated Glomerular Filt Rate > 60 mL/min (>60); Glucose 130 mg/dL (80-110); HDL Cholesterol 52 mg/dL (40-60); HEMOLYSIS < 15 (0-50); LDL Cholesterol Calculated 74 mg/dL (<100); Potassium 4.1 mmol/L (3.4-5.1); Sodium 138 mmol/L (137-145); Triglycerides 85 mg/dL (35-150)
[2024-08-15 12:06] LABS: Microalbumin Urine Random 0.9 mg/dL (0-1.6)
== END ==
PROVIDERS: PCP Internal Medicine; Referring Provider Internal Medicine; Visit Provider Internal Medicine
DX: E11.69 Type 2 diabetes mellitus with other specified complication (principal); E78.2 Mixed hyperlipidemia; E11.40 Type 2 diabetes mellitus with diabetic neuropathy, unspecified; I35.0 Nonrheumatic aortic (valve) stenosis; I10 Essential (primary) hypertension; M54.41 Lumbago with sciatica, right side; G89.29 Other chronic pain; M48.062 Spinal stenosis, lumbar region with neurogenic claudication; L71.9 Rosacea, unspecified; I47.10 Supraventricular tachycardia, unspecified; E66.9 Obesity, unspecified; Z68.30 Body mass index [BMI] 30.0-30.9, adult; R32 Unspecified urinary incontinence
CPT/HCPCS: 36415; 80048; 80061; 82043; 82570; 83036; 84450

== ENCOUNTER → 2024-08-21 13:38 | Outpatient (CLI) | payer MEDICARE, BC, SELFPAY ==
[2024-05-22 15:15] VITALS: BMI 28.3
== END ==
PROVIDERS: PCP Internal Medicine; Referring Provider Internal Medicine; Visit Provider Internal Medicine
DX: C34.92 Malignant neoplasm of unspecified part of left bronchus or lung (principal); R94.2 Abnormal results of pulmonary function studies
CPT/HCPCS: 94060; 94726; 94729

== ENCOUNTER → 2024-08-28 09:53 | Outpatient (CLI) | payer MEDICARE, BC, SELFPAY ==
[2024-05-22 15:15] VITALS: BMI 28.3
[2024-08-28 10:58] LABS: Add Manual Diff / Slide Review NO; Basophils Absolute Auto 100 /uL (0-100); Basophils Percent Auto 0.7 % (0-2); Eosinophils Absolute Auto 100 /uL (0-450); Eosinophils Percent Auto 1.6 % (2-4); Hematocrit 39.6 % (36-46); Hemoglobin 13.3 g/dL (12.0-16.0); Lymphocytes Absolute Auto 2400 /uL (1100-4500); Lymphocytes Percent Auto 30.3 % (25-40); Mean Corpuscular HGB Conc 33.5 % (30-36); Mean Corpuscular Hemoglobin 29.3 PG (26-34); Mean Corpuscular Volume 87.3 fL (80-100); Monocytes Absolute Auto 500 /uL (0-900); Monocytes Percent Auto 6.2 % (3-14); Neutrophils Absolute Auto 4900 /uL (1500-7000); Neutrophils Percent Auto 61.2 % (50-75); Platelet Count 224 X10^3/uL (150-400); Red Blood Cell Count 4.54 X10^6/uL (4.0-5.2); Red Cell Distribution Width 13.7 % (11.6-14.8)
[2024-08-28 11:14] LABS: BUN Creatinine Ratio 47.5 (6-22); Blood Urea Nitrogen 28 mg/dL (7-17); Calcium 9.8 mg/dL (8.4-10.2); Carbon Dioxide 29 mmol/L (22-32); Chloride 104 mmol/L (98-107); Estimated Glomerular Filt Rate > 60 mL/min (>60); Glucose 153 mg/dL (80-110); HEMOLYSIS 33 (0-50); Potassium 5.1 mmol/L (3.4-5.1); Sodium 139 mmol/L (137-145)
== END ==
PROVIDERS: PCP Internal Medicine; Referring Provider Internal Medicine Interventional Cardiology; Visit Provider Internal Medicine Interventional Cardiology
DX: I35.0 Nonrheumatic aortic (valve) stenosis (principal)
CPT/HCPCS: 36415; 80048; 85025

== ENCOUNTER → 2024-10-02 15:09 | Outpatient (CLI) | payer MEDICARE, BC, SELFPAY ==
[2024-05-22 15:15] VITALS: BMI 28.3
[2024-10-02 16:27] LABS: INR 1.1 (0.9-1.3); Prothrombin Time 12.2 SECONDS (9.4-12.5)
== END ==
PROVIDERS: PCP Internal Medicine; Referring Provider Internal Medicine; Visit Provider Internal Medicine
DX: I35.0 Nonrheumatic aortic (valve) stenosis (principal)
CPT/HCPCS: 36415; 85610

== ENCOUNTER → 2024-11-18 13:37 | Outpatient (CLI) | payer MEDICARE, BC, SELFPAY ==
[2024-05-22 15:15] VITALS: BMI 28.3
[2024-11-18 14:48] LABS: BUN Creatinine Ratio 40.7 (6-22); Blood Urea Nitrogen 22 mg/dL (7-17); Calcium 9.2 mg/dL (8.4-10.2); Carbon Dioxide 28 mmol/L (22-32); Chloride 100 mmol/L (98-107); Estimated Glomerular Filt Rate > 60 mL/min (>60); Glucose 309 mg/dL (80-110); HEMOLYSIS < 15 (0-50); Sodium 134 mmol/L (137-145)
[2024-11-18 16:31] LABS: Appearance Urine UA CLEAR; Bilirubin Urine UA NEGATIVE (NEGATIVE); Color Urine UA YELLOW; Glucose Urine UA 1+ g/dL (Negative); Ketones Urine UA NEGATIVE (NEGATIVE); Leukocyte Esterase Urine UA TRACE (NEGATIVE); Nitrite Urine UA NEGATIVE (Negative); Occult Blood Urine UA TRACE-INTACT (Negative); Protein Urine UA NEGATIVE (Negative); Specific Gravity Urine UA 1.015 (1.000-1.035); Urobilinogen Urine UA 0.2 E.U./dL (0.2)
[2024-11-18 16:33] LABS: pH Urine UA 5.5 (4.5-8.0)
[2024-11-18 16:38] LABS: Bacteria Urine Moderate (10-30); Culture Indicated Urine Specimen Cultured; RBC Urine 0-1/HPF (0-5/HPF); Squamous Epithelial Cell Urine 1-5 /HPF (0-5/HPF); Urine Volume 10mL (spun); WBC Urine 5-10/HPF (0-5/HPF)
== END ==
LOC: LAB 13:39
PROVIDERS: PCP Internal Medicine; Referring Provider Internal Medicine; Visit Provider Internal Medicine
DX: E11.69 Type 2 diabetes mellitus with other specified complication (principal); R30.0 Dysuria
CPT/HCPCS: 36415; 80048; 81001; 83036; 87077; 87086; 87186

== ENCOUNTER → 2024-12-18 13:22 | Outpatient (CLI) | payer MEDICARE, BC, SELFPAY ==
[2024-05-22 15:15] VITALS: BMI 28.3
--- NOTE | 2024-12-18 13:25 | DI.MG.S_ITS ---
MM diagnostic mammo BI: 12/18/2024. BI-RADS: 3 CLINICAL: 79-year old female for bilateral diagnostic mammogram. Tyrer-Cuzick lifetime risk of 3.8%. No personal or first-degree family history of breast cancer. Current reported family history of breast cancer: maternal aunt. PRIOR EXAMS 05/20/2024, 11/20/2023, 10/30/2023, 10/25/2022, 10/21/2021, 10/30/2019. MAMMOGRAPHY TECHNIQUE: 2D and 3D (tomosynthesis) digital mammographic views obtained, with additional images as needed for full coverage. Current study was also evaluated with a Computer Aided Detection (CAD) system. DENSITY B. There are scattered areas of fibroglandular density. MAMMOGRAPHY FINDINGS Right: No suspicious mass, asymmetry, microcalcification, or other abnormality seen. Left: Lower Outer at 5:00, Middle depth: There is a focal asymmetry present with associated calcifications. Asymmetry has decreased in size. This asymmetry does not correlate with ultrasound findings. IMPRESSION: Right * No evidence of malignancy. Left (Asymmetry): Lower Outer at 5:00, Middle depth * Probably Benign. RECOMMENDATIONS Left: Lower Outer at 5:00, Middle depth * Followup with diagnostic mammography in one year. OVERALL ASSESSMENT CATEGORY BI-RADS-3: Probably Benign. ELECTRONICALLY SIGNED: Tang Groves M.D. on 12/18/2024 at 02:35:23 PM Interpreting Station ID: [id number]
== END ==
PROVIDERS: PCP Internal Medicine; Referring Provider Internal Medicine; Visit Provider Internal Medicine
DX: R92.8 Other abnormal and inconclusive findings on diagnostic imaging of breast (principal); Z80.3 Family history of malignant neoplasm of breast
CPT/HCPCS: 77066; G0279

== ENCOUNTER → 2025-02-25 11:36 | Outpatient (CLI) | payer MEDICARE, BC, SELFPAY ==
[2024-05-22 15:15] VITALS: BMI 28.3
[2025-02-25 13:14] LABS: Hemoglobin A1C% w Est Avg Glu 8.1 % (4.0-6.0)
[2025-02-25 13:28] LABS: BUN Creatinine Ratio 33.3 (6-22); Blood Urea Nitrogen 23 mg/dL (7-17); Calcium 9.7 mg/dL (8.4-10.2); Carbon Dioxide 28 mmol/L (22-32); Chloride 103 mmol/L (98-107); Estimated Glomerular Filt Rate > 60 mL/min (>60); Glucose 158 mg/dL (70-99); HEMOLYSIS < 15 (0-50); Potassium 4.2 mmol/L (3.4-5.1); Sodium 138 mmol/L (137-145)
== END ==
PROVIDERS: PCP Internal Medicine; Referring Provider Internal Medicine; Visit Provider Internal Medicine
DX: E11.40 Type 2 diabetes mellitus with diabetic neuropathy, unspecified (principal)
CPT/HCPCS: 36415; 80048; 83036

== ENCOUNTER → 2025-06-09 12:50 | Outpatient (CLI) | payer MEDICARE, BC, SELFPAY ==
[2024-05-22 15:15] VITALS: BMI 28.3
--- NOTE | 2025-07-01 11:40 | DIAB.MNTFU ---
Follow-up Diabetes Medical Nutrition Therapy Assessment Name: Maricruz Garcia I (Sofi) Date: 06/09/25 Time: 105-2p Dx: Type II Diabetes Sofi presents for follow-up DM visit. Last RD visit 07/2024. Reports she would like to check in and review nutrition recommendations and CGM accuracy. Cut down coffee and diet soda. Reports changes in taste, which she attributes to one of her medications. Endorses more elevated BG recently, despite improved hgA1c of 6.8% Diet Recall: 8a: egg, half [place] muffin sourdough and premier protein sn: nothing or nuts 4p: protein, salad with small potato OR 1/2-1c frozen veggies with cottage cheese and melon 8p: string cheese with melon chunks and cottage cheese OR sting cheese with ham OR half bag popcorn Eating [place]ri[place] food take out lately, makes 3 meals per report. Physical Activity: Reports 3000 steps per day. Walks most days, has a small walking pad at home. wants to do more walks. Self-Monitoring Blood Glucose: Increased hyperglycemia since previous visit. States she thinks CGm needs calibration, but she is unaware how to calibrate. Finger sticks are 10-50 points off per report. TIR: 14% very high 30% high 56% in range 0% low 0% very low Avmg/dl GMI: 7.6% std dev: 61mg/dl variation: 34% Last Visit TIR: 1% very high 28% high 70% in range 1% low <1% very low Avmg/dl GMI: NA std dev: 47mg/dl variation: 31.3% Diabetes Medications: 7u Glargine AM 12u Glargine HS Pertinent Labs: HgA1c: 8.7% 04/2024 6.8% 05/2025 Past Medical History: (Last Reviewed 05/22/24 @ 13:20 by Roni Patterson MD) Abnormal mammogram Chicken pox ChildhoodChronic low back pain Colon polyps (~1994) Endothelial corneal dystrophy, bilateral Essential hypertension Generalized osteoarthrosis of multiple sites Hearing loss (~2014) Hemorrhoid (~1977) History of urinary incontinence Irritable bowel syndrome Lumbar spinal stenosis Measles ChildhoodMixed hyperlipidemia Mumps ChildhoodObesity (BMI 30.0-34.9) Personal history of colonic polyps Polyneuropathy in diseases classified elsewhere Rosacea (~1969) Rosacea, unspecified Severe aortic stenosis SVT (supraventricular tachycardia) Tinnitus (~2014) Type 2 diabetes mellitus with diabetic neuropathy, unspecified Type 2 diabetes mellitus with other specified complication Urinary incontinence Vasomotor rhinitis Vitiligo (~1969) Nutrition Rx: Carbohydrates: Meal:30-45g Snack:15-30g Nutrition Diagnosis: - Inadequate physical activity r/t stage of change contemplation aeb pt report - Nutrition and food related knoweldge deficit r/t needing more info on HS snacks aeb pt report Intervention: This participant was very receptive. Provided appropriate educational handouts. Discussed the following topics: Recent blood sugar results and trends Review of nutrition recommendations and current intake Discussed protein recommendations Physical activity recs, goals and strategies Ways to calibrate CGM Created SMART goals for patient self-care and success. Goals: Move HS snack 3-4 hr post dinner- d/c Calibrate CGM when you do a fingerstick- new Try half protein shake at HS snack- new Try [address] [place] safely - new Follow-up: JENNIFER JIANG follow-up in 4 weeks. Fadumo Pope RDN, APOLINAR Certified Diabetes Care and Survey Engineer P: [phone] Thank you for this referral
== END ==
PROVIDERS: PCP Internal Medicine; Referring Provider Internal Medicine
DX: E11.65 Type 2 diabetes mellitus with hyperglycemia (principal); Z71.3 Dietary counseling and surveillance; Z79.4 Long term (current) use of insulin
CPT/HCPCS: 97803

== ENCOUNTER → 2025-07-10 12:40 | Outpatient (CLI) | payer MEDICARE, BC, SELFPAY ==
[2024-05-22 15:15] VITALS: BMI 28.3
--- NOTE | 2025-07-23 11:48 | DIAB.MNTFU ---
Follow-up Diabetes Medical Nutrition Therapy Assessment Name: Maricruz Garcia I (Sofi) Date: 07/10/25 Time: 1-145P Dx: Type II Diabetes Sofi presents for follow-up DM visit. States she is making diet changes based on CGM results. Has been calibrating CGm for best results. Noticed a reduction in constipation with increased popcorn intake. Using Stevia for sweetening. Tried HS protein shake. Added some coffee to pro shake and liked it. Endorses needing help with trimming nails. Cut into skin this morning. Looking for senior climate advisor. Diet recall: 830a: egg and slice toast sn: nuts 4p: 3 chunks of melon and 3/4-1c cottage cheese +/- frozen veggies 8p: string cheese and ham OR popcorn x 2-3c Physical Activity: Could not walk trail that she had previously wanted to try. Is walking 5 days per week 20-30 mins most days. Avg of 3000 steps per day reported. Self-Monitoring Blood Glucose: Improved TIR though still having some excessive time above goal TIR: 3% very high 24% high 73% in range 0% low 0% very low Avmg/dl GMI: 6.9% std dev: 48mg/dl variation: 32.1% Last Visit TIR: 14% very high 30% high 56% in range 0% low 0% very low Avmg/dl GMI: 7.6% std dev: 61mg/dl variation: 34% Diabetes Medications: 7u Glargine AM 12u Glargine HS Pertinent Labs: HgA1c: 8.7% 04/2024 6.8% 05/2025 Past Medical History: (Last Reviewed 05/22/24 @ 13:20 by Roni Patterson MD) Abnormal mammogram Chicken pox ChildhoodChronic low back pain Colon polyps (~1994) Endothelial corneal dystrophy, bilateral Essential hypertension Generalized osteoarthrosis of multiple sites Hearing loss (~2014) Hemorrhoid (~1977) History of urinary incontinence Irritable bowel syndrome Lumbar spinal stenosis Measles ChildhoodMixed hyperlipidemia Mumps ChildhoodObesity (BMI 30.0-34.9) Personal history of colonic polyps Polyneuropathy in diseases classified elsewhere Rosacea (~1969) Rosacea, unspecified Severe aortic stenosis SVT (supraventricular tachycardia) Tinnitus (~2014) Type 2 diabetes mellitus with diabetic neuropathy, unspecified Type 2 diabetes mellitus with other specified complication Urinary incontinence Vasomotor rhinitis Vitiligo (~1969) Nutrition Rx: Carbohydrates: Meal:30-45g Snack:15-30g Nutrition Diagnosis: - Inadequate physical activity r/t stage of change contemplation aeb pt report - in progress - Nutrition and food related knoweldge deficit r/t needing more info on HS snacks aeb pt report- improved Intervention: This participant was very receptive. Provided appropriate educational handouts. Discussed the following topics: Recent blood sugar results and trends Review of nutrition recommendations and current intake Fiber impact on BG and BM Physical activity recs, goals and strategies Podiatry resources in the area Taking care of feet to reduce complications Created SMART goals for patient self-care and success. Goals: Calibrate CGM when you do a fingerstick- met Try half protein shake at HS snack- met Try [address] [place] safely - not met make appt with podiatry- new Aim for 3500 steps per day- new Follow-up: JENNIFER JIANG follow-up in 3-4 weeks Fadumo Pope RDN, APOLINAR Certified Diabetes Care and Lead Material Handler P: [phone] Thank you for this referral
== END ==
LOC: DIET 12:42
PROVIDERS: PCP Internal Medicine; Referring Provider Internal Medicine
DX: E11.9 Type 2 diabetes mellitus without complications (principal); Z71.3 Dietary counseling and surveillance; Z79.4 Long term (current) use of insulin
CPT/HCPCS: 97803

== ENCOUNTER → 2025-09-25 12:37 | Outpatient (CLI) | payer MEDICARE, BC, SELFPAY ==
[2024-05-22 15:15] VITALS: BMI 28.3
--- NOTE | 2025-09-25 15:08 | DIAB.FU ---
Addendum entered by Fadumo Pope 09/25/25 15:39: Further discussion with patient after our visit today. Reviewing her past CGM numbers, RD noticed that her numbers in June were much more closer to goal for TIR. Asked patient if she thinks some of this may be holiday eating. Reviewed some potential foods and events that may have contributed. Encouraged her to lessen such foods and watch carefully. Will reevaluate in October. Plans for PCP and labs at that time. If hyperglycemia continues, may want to consider options outlined in note below. She agreed to this plan. Encouraged her to reach out to PCP prn if BG continue over 180mg/dl consistently. She agreed. Original Note: Follow-up Diabetes Education Assessment Name: Maricruz Garcia I (Sofi) Date: 09/25/25 Time: 1 Dx: Type II Diabetes Sofi presents for follow-up DM visit. Since last visit has had foot infections. Sees substance abuse specialist now regularly. Per CGM results, FBG are in goal but each time she eats BG goes >180mg/dl, often over 200mg/dl. She endorses a desire to better manage these postprandial BG, however this does seem unlikely with diet/exercise. Even with <20g CHO her BG goes above goal. Has h/o rxn to Metformin, Jardiance, and Rybelsus. Currently taking Lantus BID. May benefit from taking Lantus HS and adding one prandial injection. RD will message PCP to report recent BG and potential plan. Diet recall: 830a: egg and slice toast sn: nuts 4p: low CHO burrito with cheese and avocado OR burger with part of bun and a few fries 8p: string cheese and ham OR sf chocolate OR cheese and 8 wheat thin chocolate Water sf beverages occasional hot chocolate lately Physical Activity: 8030-2246 steps per day. Limited ability for exercise due to fall risk per report. Self-Monitoring Blood Glucose: Increased hyperglycemia likely r/t holiday eating. Excessive time above goal TIR: 9% very high 25% high 65% in range 0% low 0% very low Avmg/dl GMI: 7.1% std dev: 62mg/dl variation: 39% Last Visit TIR: 3% very high 24% high 73% in range 0% low 0% very low Avmg/dl GMI: 6.9% std dev: 48mg/dl variation: 32.1% Diabetes Medications: 7u Glargine AM 12u Glargine HS Pertinent Labs: HgA1c: 8.7% 04/2024 6.8% 05/2025 Past Medical History: (Last Reviewed 08/31/25 @ 12:02 by Roni Patterson MD) Abnormal mammogram Chicken pox Childhood Chronic low back pain Colon polyps (~1994) Endothelial corneal dystrophy, bilateral Essential hypertension Generalized osteoarthrosis of multiple sites Hearing loss (~2014) Hemorrhoid (~1977) History of urinary incontinence Irritable bowel syndrome Lumbar spinal stenosis Lung cancer Measles Childhood Mixed hyperlipidemia Mumps Childhood Obesity (BMI 30.0-34.9) Personal history of colonic polyps Polyneuropathy in diseases classified elsewhere Rosacea (~1969) Rosacea, unspecified Severe aortic stenosis SVT (supraventricular tachycardia) Tinnitus (~2014) Type 2 diabetes mellitus with diabetic neuropathy, unspecified Type 2 diabetes mellitus with other specified complication Urinary incontinence Vasomotor rhinitis Vitiligo (~1969) Nutrition Rx: Carbohydrates: Meal:30-45g Snack:15-30g Nutrition Diagnosis: - Nutrition and food related knowledge deficit r/t needing more ideas for more balanced intake aeb pt report Intervention: This participant was very receptive. Provided appropriate educational handouts. Discussed the following topics: Recent blood sugar results and trends How CHO impact her BG in even small portions, likely need for additional DM medications as a result unless we are changing goals based on age and quality of life Ways to increase veggies without cooking in a way she enjoys higher protein yogurts Potential options to manage postprandial elevations Created SMART goals for patient self-care and success. Goals: make appt with podiatry- met Aim for 3500 steps per day- not met Choose [place] yogurt- new Carrots 3x per week- new Follow-up: JENNIFER JIANG follow-up in 4-6 weeks or sooner prn. Fadumo Pope RDN, APOLINAR Certified Diabetes Care and Template Storage Clerk P: [phone] Thank you for this referral
== END ==
PROVIDERS: PCP Internal Medicine; Referring Provider Internal Medicine
DX: E11.65 Type 2 diabetes mellitus with hyperglycemia (principal); Z71.3 Dietary counseling and surveillance; Z79.84 Long term (current) use of oral hypoglycemic drugs
CPT/HCPCS: G0108